=== PATIENT | female | born 1955 | race Caucasian/White ===

== ENCOUNTER 2017-12-19 11:26 | Outpatient (CLI) | payer MEDICARE | END 2017-12-19 11:27 | disposition home or self-care (01) | LOC: BICMAMMO 11:26 | PROVIDERS: ATTEND Family Medicine | DX: Z12.31 Encounter for screening mammogram for malignant neoplasm of breast (principal); N63.20 Unspecified lump in the left breast, unspecified quadrant | CPT/HCPCS: 77063; 77067 ==

== ENCOUNTER 2017-12-24 12:57 | Outpatient (CLI) | payer MEDICARE | END 2017-12-24 12:58 | disposition home or self-care (01) | LOC: BICMAMMO 12:57 | PROVIDERS: ATTEND Family Medicine | DX: N63.20 Unspecified lump in the left breast, unspecified quadrant (principal); Z80.3 Family history of malignant neoplasm of breast | CPT/HCPCS: 76642; 77065; G0279 ==

== ENCOUNTER 2018-08-06 10:21 | Outpatient (CLI) | payer MEDICARE | END 2018-08-06 10:22 | disposition home or self-care (01) | LOC: BICMAMMO 10:21 | PROVIDERS: ATTEND Family Medicine | DX: R92.8 Other abnormal and inconclusive findings on diagnostic imaging of breast (principal); Z80.3 Family history of malignant neoplasm of breast | CPT/HCPCS: 77065; G0279 ==

== ENCOUNTER 2018-10-22 09:06 | Outpatient (CLI) | payer MEDICARE ==
--- NOTE | 2018-10-22 10:33 | RAD ---
LUMBAR SPINE NEUTRAL FLEXION AND EXTENSION LATEARL IMAGIN10/22/2018 HISTORY: Low back pain, extending into the left hip. TECHNIQUE: The performing technologist reports the patient was unable to stand during this examination. FINDINGS: The neutral lateral imaging demonstrates pedicle screws with vertically oriented interlocking rods ar e L4, L5, and S1. Intervertebral disk devices are present at L4-L5 and at L5-S1. On the neutral lateral exam, there is minimal anterolisthesis of L4 on L5, measuring approximately 4 mm. There is disk space narrowing with degenerative endplate change and anterior osteophyte formatio n at the lumbosacral junction. There is atherosclerotic calcification of the abdominal aorta. On ex tension imaging, no significant anterolisthesis or retrolisthesis is noted. Flexion imaging is quite limited, on the basis of technique. Minimal anterolisthesis of L4 on L5 is suspected, probably unch anged when compared to neutral imaging. The patient appears status post bilateral L4 and L5 laminectomy. IMPRESSION: Postoperative and degenerative changes of the lumbar spine, as detailed above. POS: MELONIE
--- NOTE | 2018-10-22 12:26 | RAD ---
LEFT HIP: Date: 10/22/18 INDICATION: Low back pain and left hip pain. FINDINGS: There is mild to moderate degenerative arthrosis of the left hip. No acute fracature or subluxation i s evident. IMPRESSION: No acute osseous abnormality. POS: MELONIE
== END 2018-10-22 09:07 | disposition home or self-care (01) ==
LOC: TBSIIMAG 09:06
PROVIDERS: ATTEND Neurological Surgery
DX: M48.061 Spinal stenosis, lumbar region without neurogenic claudication (principal); M47.816 Spondylosis without myelopathy or radiculopathy, lumbar region; Z98.890 Other specified postprocedural states
CPT/HCPCS: 72100

== ENCOUNTER 2018-11-17 10:44 | Outpatient (CLI) | payer MEDICARE ==
[2018-11-17 12:22] LABS: Hemoglobin 11.1 g/dL (12.0-16.0); Mean Corpuscular Hemoglobin 29.5 pg (27.0-31.0); Mean Corpuscular Volume 89.4 fL (78.0-98.0); Mean Platelet Volume 8.5 fL (7.4-10.4); Platelet Count 229 thou/uL (130-400); RBC Distribution Width 13.5 % (11.5-14.5); Red Blood Cell (RBC) Count 3.77 mill/uL (4.20-5.40); White Blood Cell (WBC) Count 5.8 thou/uL (4.8-10.8)
[2018-11-17 12:29] LABS: PTT 33.2 SEC (22.9-36.1); Prothrombin Time 13.1 SEC (12.0-14.7)
[2018-11-17 12:42] LABS: Anion Gap 14 mmol/L (10-20); BUN (Urea Nitrogen) 31 mg/dL (9.8-20.1); Calc. Creatinine Clearance 0 mL/min (70-130); Calcium 9.9 mg/dL (7.8-10.44); Carbon Dioxide 27 mmol/L (23-31); Chloride 101 mmol/L (98-107); Estimated GFR-MDRD 36; Glucose 164 mg/dL (80-115); Potassium 4.7 mmol/L (3.5-5.1); Sodium 137 mmol/L (136-145)
== END 2018-11-17 10:45 | disposition home or self-care (01) ==
LOC: LABBT 10:44
PROVIDERS: ATTEND Neurological Surgery
DX: Z01.818 Encounter for other preprocedural examination (principal); M48.062 Spinal stenosis, lumbar region with neurogenic claudication
CPT/HCPCS: 80048; 85027; 85610; 85730; 93005; 93010

== ENCOUNTER 2018-11-23 05:46 | Day surgery (SDC) | payer MEDICARE ==
[2018-11-17 10:59] VITALS: BMI 39.8
--- NOTE | 2018-11-20 21:13 | HP ---
HISTORY OF PRESENT ILLNESS: This is a 63-year-old female, who reports to our office for evaluation of back and leg pain. The patient states that she has been having low back pain for many years. She is having symptoms of neurogenic claudication that prevents her from standing or walking for more than 5 minutes. Positive shopping cart sign. The patient had surgery by Dr. Young in 2016, fusion L4-S1, this surgery was not very helpful to her symptoms. The patient states that she has been having similar symptoms prior to surgery, however, now she is much worse. She denies injections recently and prior to her previous surgery, she had no help with them. The patient denies any recent physical therapy and states that the standing or walking is painful for any length of time. Sitting or lying in bed is less painful. REVIEW OF SYSTEMS: A 10-point review of systems has been completed and is negative other than stated in the above HPI. PAST MEDICAL HISTORY: HBP, reflux, high cholesterol, depression, anxiety, arthritis, allergies, gout, bladder problems, COPD. SURGICAL HISTORY: Knee replacement in 2017, shoulder surgery in 2016, lumbar surgery by Dr. Young in 2016. FAMILY HISTORY: Father , unknown. Mother , diagnosed with diabetes, hypertension. Children are alive. SOCIAL HISTORY: The patient is a former smoker. Uses E-cigarettes now. No alcohol or other illicit drugs. MEDICATIONS: Atorvastatin, zolpidem, mirtazapine, aspirin, allopurinol, amlodipine, fluoxetine, oxybutynin, furosemide, lisinopril/hydrochlorothiazide, and pantoprazole. PHYSICAL EXAMINATION: CONSTITUTIONAL: Well-appearing, well-nourished, alert. MENTAL STATUS: Oriented to time, place, and person. Normal attention span and concentration. Speech: Spontaneous and fluent. Comprehension intact. Content appropriate. Normal fund of knowledge. CRANIAL NERVES: Pupils equal, round, and reactive to light. Extraocular movements intact. Hearing is intact. MOTOR: Muscle strength normal in lower extremities. Muscle tone and bulk normal. Lower extremities, 5/5 bilateral strength in IP, KE, KF, DF, PF, EHL. No radiculopathy. Negative single leg raise bilaterally. Rotation of bilateral hips normal. Tender to palpate lumbar spine. Deep tendon reflexes diminished bilaterally. SENSORY: Light touch intact. GAIT and STATION: Sit to stand slow, forward flexed gait. RESPIRATIONS: Normal work of breathing on room air. IMAGING: Lumbar MRI shows severe stenosis L3-L4, previous fusion L4-L5 and L5-S1. Flexion-extension, no instability. L4-S1 instrumentation fusion. ASSESSMENT AND PLAN: Spinal stenosis, lumbar region with neurogenic claudication. Dr. Sandoval has offered surgery. He will do a redo laminectomy L2, L3 and L4 above the prior fusions. We have obtained informed consent. We have discussed the indications, risks, benefits, alternatives, expected results from surgery. The risks discussed included, but were not limited to, bleeding, infection, CSF leak, nerve damage, weakness, incontinence, cauda equina injury, arachnoiditis, paralysis, ventilator dependence, wheelchair dependence, loss of vision, cardiopulmonary complications of anesthesia or . Long-term complications discussed included, but were not limited to spinal instability and the need for further surgery. The patient states she understands the risks and willing to proceed. Job ID: [id number]
[2018-11-23] MEDS ORDERED: Bupivacaine HCl 0.5%/Epinephrine 1:200,000/PF 30 ml Vial ONE (06:16)
[2018-11-23] MEDS ORDERED: Sodium Chloride 0.9% 10 ML ONE ×2 (06:17→11:36)
[2018-11-23] MEDS ORDERED: Thrombin 5000 UNITS/5 ML VIAL ONE (06:17)
[2018-11-23] MEDS ORDERED: Promethazine HCl 25 MG/ML VIAL ONE ×3 (06:40→11:36)
[2018-11-23] MEDS ORDERED: Midazolam HCl 2 mg/2 ml Vial ONE (06:42)
[2018-11-23] MEDS ORDERED: Fentanyl 100 MCG/2 ML VIAL ONE ×4 (06:53→10:45)
[2018-11-23] MEDS ORDERED: Meperidine HCl/PF 25 MG/ML VIAL SLOW IVP PRN (09:23)
[2018-11-23] MEDS ORDERED: Ondansetron HCl/PF 4 MG/2 ML Vial IVP PRN (09:23)
[2018-11-23] MEDS ORDERED: Promethazine HCl 25 MG/ML VIAL SLOW IVP PRN (09:23)
[2018-11-23] MEDS ORDERED: HYDROmorphone 2 MG/ML VIAL SLOW IVP PRN (09:23)
[2018-11-23] MEDS ORDERED: PACU-Morphine 4MG/ML VIAL SLOW IVP PRN (09:23)
[2018-11-23] MEDS ORDERED: Morphine Sulfate 2 MG/ML SYRINGE SLOW IVP PRN (09:23)
[2018-11-23] MEDS ORDERED: Promethazine HCl 25 MG/ML VIAL IM PRN (09:23)
--- NOTE | 2018-11-23 10:27 | OP ---
DATE OF PROCEDURE: 11/23/2018 LEVEL GLASS VIAL FILLER: Brianna Almaguer PA-C. PREOPERATIVE INDICATION: Treat pain and prevent neurological deterioration. PREOPERATIVE DIAGNOSIS: Two level lumbar stenosis above previously fused segment (prior surgery elsewhere). POSTOPERATIVE DIAGNOSIS: Two level lumbar stenosis above previously fused segment (prior surgery elsewhere). OPERATIVE PROCEDURES: Decompressive laminectomy, medial facetectomy, foraminotomy, L2-L3, L3-L4, operating microscope, scar tissue dissection. PREOPERATIVE MEDICATION: Ancef 2 g IV. DRAIN NUMBER: Zero. DRAIN TYPE: None. DESCRIPTION OF PROCEDURE: The patient was brought to the operating room. General endotracheal anesthesia was induced. The patient was positioned prone on the operating table with the chest and hips supported by gel-filled chest rolls. A lateral fluoro radiograph was used to plan our incision, which would give us access from L2 to L4 in her lumbar spine. The lumbar skin was sterilely prepped and draped. We opened our incision with a 10 blade knife and controlled bleeding with bipolar cautery. We used monopolar cautery to dissect through subcutaneous tissues to the thoracodorsal fascia. We incised the fascia in the midline and reflected the paraspinal muscles off the spinous process and lamina of L2, L3, and L4. A lateral fluoro radiograph confirmed the levels upon which we were operating. We then used an Adson rongeur to remove the spinous process of L2-L3 and the superior portion of L4, using the Kerrison rongeur, we fashioned a laminectomy. We widened our laminectomy defect and brought the operative microscope into the field. Under microscopic magnification and using microsurgical techniques, I performed more the medial facetectomy and foraminotomy at L2-L3 and L3-L4. We undermined the lateral recesses by removing overgrown facet material and yellow ligament. We identified the traversing and exiting L3 and L4 nerve roots and made sure a ball probe could pass through the lateral recess and out the foramen without impingement. Similar process was used to perform small foraminotomy around the L2 nerve roots. We irrigated copiously with bacitracin irrigation and waxed the bone edges. We ensured adequate decompression one last time and controlled the epidural bleeding with gentle bipolar cautery. We infused local anesthetic in the paraspinal muscles. We removed the operating microscope. We closed the wound in anatomical layers after treating with vancomycin powder. A sterile dressing was applied. This was a clean case, no contamination. Job ID: [id number]
[2018-11-23] MEDS ORDERED: ePHEDrine 50 MG/ML VIAL ONE (11:33)
[2018-11-23] MEDS ORDERED: Rocuronium Bromide 10 MG/ML (10ML VIAL) ONE (11:33)
[2018-11-23] MEDS ORDERED: PROPOFOL 200 MG/20 ML VIAL ONE (11:33)
[2018-11-23] MEDS ORDERED: PHENYLEPHRINE-NS 100 MCG/ML 10 ML SYRINGE ONE (11:33)
[2018-11-23] MEDS ORDERED: Lidocaine 1% PF 5 ML VIAL ONE (11:33)
[2018-11-23] MEDS ORDERED: Glycopyrrolate 0.2 MG/ML 5 ML SYRINGE ONE (11:33)
[2018-11-23] MEDS ORDERED: PROVENTIL INHALER 6.7 G (200 INHALATIONS) ONE (11:33)
[2018-11-23] MEDS ORDERED: Esmolol 100 MG/10 ML VIAL ONE (11:33)
[2018-11-23] MEDS ORDERED: Metoclopramide HCl 10 MG/2 ML VIAL ONE (11:33)
[2018-11-23] MEDS ORDERED: Ondansetron PF 4 MG/2 ML Vial ONE (11:33)
== END 2018-11-23 13:05 | disposition home or self-care (01) ==
LOC: SDC 05:46
PROVIDERS: ATTEND Neurological Surgery
PROC: 01NB0ZZ Release Lumbar Nerve, Open Approach (ICD-10-PCS; principal; 2018-11-23)
DX: M48.062 Spinal stenosis, lumbar region with neurogenic claudication (principal); K21.9 Gastro-esophageal reflux disease without esophagitis; E78.00 Pure hypercholesterolemia, unspecified; F32.9 Major depressive disorder, single episode, unspecified; F41.9 Anxiety disorder, unspecified; M19.90 Unspecified osteoarthritis, unspecified site; M10.9 Gout, unspecified; J44.9 Chronic obstructive pulmonary disease, unspecified; I10 Essential (primary) hypertension; F17.290 Nicotine dependence, other tobacco product, uncomplicated; Z88.0 Allergy status to penicillin; Z98.1 Arthrodesis status; Z79.899 Other long term (current) drug therapy
CPT/HCPCS: 76000; J0131; J0670; J0690; J2001; J2250; J2405; J2550; J2704; J2765; J3010; J3370; J3490

== ENCOUNTER 2019-01-04 10:38 | Outpatient (CLI) | payer MEDICARE ==
--- NOTE | 2019-01-04 13:42 | MMO ---
Bilateral MAMMO Bilat Screen [facility]. CLINICAL HISTORY: Patient is 63 years old and is seen for screening. The patient has no personal history of cancer. The patient has a history of right Excisional Biopsy in 07/05 - benign findings and left Excisional Biopsy in 08/07 - benign. VIEWS: The views performed were: bilateral craniocaudal with tomosynthesis and bilateral mediolateral oblique with tomosynthesis. FILMS COMPARED: The present examination has been compared to prior imaging studies performed at [facility] on 05/29/2016, 12/19/2017, 12/24/2017 and 08/06/2018. MAMMOGRAM FINDINGS: There are scattered fibroglandular densities. There are stable benign appearing calcifications seen in both breasts. There are no suspicious masses, suspicious calcifications, or new areas of architectural distortion. IMPRESSION: THERE IS NO MAMMOGRAPHIC EVIDENCE OF MALIGNANCY. A ROUTINE FOLLOW-UP MAMMOGRAM IN 1 YEAR IS RECOMMENDED. THE RESULTS OF THIS EXAM WERE SENT TO THE PATIENT. ACR BI-RADS Category 2 - Benign finding MAMMOGRAPHY NOTE: 1. A negative mammogram report should not delay a biopsy if a dominant of clinically suspicious mass is present. 2. Approximately 10% to 15% of breast cancers are not detected by mammography. 3. Adenosis and dense breasts may obscure an underlying neoplasm.
== END 2019-01-04 10:39 | disposition home or self-care (01) ==
LOC: BICMAMMO 10:38
PROVIDERS: ATTEND Family Medicine
DX: Z12.31 Encounter for screening mammogram for malignant neoplasm of breast (principal)
CPT/HCPCS: 77063; 77067

== ENCOUNTER 2019-02-09 09:01 | Observation (INO) | payer MEDICARE ==
[2019-02-09] MEDS ORDERED: Ondansetron PF 4 MG/2 ML Vial ONE (09:43)
[2019-02-09] MEDS ORDERED: Morphine 4 MG/ML VIAL ONE (09:43)
[2019-02-09 09:44] LABS: #Lymphocytes 1.3 thou/uL (1.20-3.40); #Monocytes 0.9 thou/uL (0.11-0.59); #Neutrophils 11.6 thou/uL (1.40-6.50); %Basophils 0.3 % (0.0-1.0); %Eosinophils 0.1 % (0.0-10.0); %Lymphocytes 9.1 % (21.0-51.0); %Monocytes 6.4 % (0.0-10.0); %Neutrophils 84.1 % (42.0-75.0); Mean Corpuscular HGB CONC 32.1 g/dL (32.0-36.0); Mean Corpuscular Volume 87.3 fL (78.0-98.0); Mean Platelet Volume 8.1 fL (7.4-10.4); Platelet Count 242 thou/uL (130-400); RBC Distribution Width 14.2 % (11.5-14.5); Red Blood Cell (RBC) Count 3.92 mill/uL (4.20-5.40); White Blood Cell (WBC) Count 13.8 thou/uL (4.8-10.8)
[2019-02-09 10:05] LABS: ALT (SGPT) 10 U/L (8-55); AST (SGOT) 14 U/L (5-34); Albumin 3.9 g/dL (3.4-4.8); Alkaline Phosphatase 102 U/L (40-150); Anion Gap 15 mmol/L (10-20); BUN (Urea Nitrogen) 46 mg/dL (9.8-20.1); Bilirubin, Total 0.5 mg/dL (0.2-1.2); Calc. Creatinine Clearance 0 mL/min (70-130); Calcium 9.4 mg/dL (7.8-10.44); Carbon Dioxide 23 mmol/L (23-31); Chloride 99 mmol/L (98-107); Estimated GFR-MDRD 24; Glucose 178 mg/dL (80-115); Potassium 4.3 mmol/L (3.5-5.1); Protein, Total 6.9 g/dL (6.0-8.3); Sodium 133 mmol/L (136-145)
[2019-02-09] MEDS ORDERED: Iopamidol 370 76% 50 ML VIAL FS ONE (10:35)
[2019-02-09 11:43] LABS: Bilirubin Negative (Negative); Blood, Urine Negative (Negative); Glucose, Urine (Dipstick) Negative (Negative); Leukocyte Negative (Negative); Nitrite Negative (Negative); Protein, Urine (Dipstick) Negative (Neg-Trace); Urobilinogen 0.2 mg/dL (Less than 2)
[2019-02-09 11:44] LABS: Clarity Clear (Clear)
--- NOTE | 2019-02-09 12:38 | CT ---
CT OF THE ABDOMEN AND PELVIS WITHOUT IV CONTRAST INDICATION: Constipation and history of left lower quadrant abdominal pain and blood in stool. COMPARISON: January 05, 2010 CT evaluation of the abdomen and pelvis from prior radiology associates. FINDINGS: The lack of IV contrast limits evaluation of the solid organs of the abdomen and pelvis. ABDOMEN: Lung bases: There is mild bibasilar atelectasis. There is a moderate-sized hiatal hernia. There is po stsurgical change of a prior gastroplasty. Liver: No focal lesion. Gallbladder: Surgically absent. Pancreas: Normal. Adrenal glands: Normal. Spleen: Normal. Kidneys: Normal. Retroperitoneum of the upper abdomen: There are moderate calcifications involving the abdominal aorta . Additional findings: None. Pelvis: Small and large bowel: There are scattered colonic diverticula. There is wall thickening with planar pericolonic inflammatory stranding involving the proximal sigmoid colon, descending colon, splenic flexure and distal transverse colon suspicious for colitis. Bladder: Normal. Rectal and perirectal soft tissues:Normal. Reproductive structures: Not visualized, presumed to be surgically absent. Free fluid in pelvis: No free fluid is evident. Lymphadenopathy pelvis: No lymphadenopathy is evident. Osseous structures: There is postsurgical change of a posterior lateral interbody fusion from L4 thro ugh S1. There is scattered degenerative and osteoarthritic changes. IMPRESSION: 1. Findings suspicious for colonic diverticulitis of the distal transverse colon, descending colon, s plenic flexure and proximal sigmoid colon. No drainable fluid collection is evident. 2. Moderate hiatal hernia 3. Other chronic findings as above
[2019-02-09] MEDS ORDERED: metroNIDAZOLE 250 MG TAB ONE (14:14)
[2019-02-09] MEDS ORDERED: Ciprofloxacin 500 MG TAB ONE (14:14)
[2019-02-09 15:40] VITALS: BMI 41.1
[2019-02-09] MEDS ORDERED: hydrALAZINE 20 MG/ML VIAL SLOW IVP PRN (15:54)
[2019-02-09] MEDS ORDERED: Temazepam 15 MG CAP PO PRN (15:54)
[2019-02-09] MEDS ORDERED: Acetaminophen 500 MG TAB PO PRN (15:54)
[2019-02-09] MEDS: Sodium Chloride 0.9% 1,000 ML IV SCH (16:25)
[2019-02-09] MEDS: Nicotine 14 MG PATCH TD SCH (16:26)
[2019-02-09] MEDS: Morphine 4 MG/ML VIAL SLOW IVP PRN (17:17)
[2019-02-09] MEDS: Ondansetron PF 4 MG/2 ML Vial IVP PRN (17:17)
[2019-02-09] MEDS: metroNIDAZOLE 500 MG in Premix Bag 1 BAG IVPB SCH (22:13)
--- NOTE | 2019-02-09 22:20 | HP ---
CHIEF COMPLAINT: Nausea, vomiting, bloody diarrhea, abdominal pain. HISTORY OF PRESENT ILLNESS: The patient is a 63-year-old female, who was fine until last night when she started having some nausea, vomiting associated with some abdominal pain in the left lower quadrant of the abdomen. She had some loose bowel movements, then they became bloody and now is pure blood according to her. She denied any fever or chills. She had similar episodes in the past x1. Also, she had colitis in the past, seen by Dr. David at the GI specialist office for this pain in her left lower quadrant, but this was quite mild as compared to what she has today and what she had last night, so she was advised to watch this closely and let the GI know about the problem if it gets worse. PAST MEDICAL HISTORY: Positive for; 1. Hyperlipidemia. 2. Hypertension. 3. Diabetes mellitus. 4. Colitis. 5. Diverticulitis. PAST SURGICAL HISTORY: 1. Hysterectomy. 2. Orthopedic surgery at back, shoulders, and knees. 3. Vein stripping. PSYCHIATRIC HISTORY: Positive for depression. SOCIAL HISTORY: She smokes one pack of cigarettes per week. She denies any alcohol intake. She denies any drug use. ALLERGIES: NONE. CURRENT MEDICATIONS: None. FAMILY HISTORY: Father was an alcoholic and he passed when he was 60. Mother was diabetic and she passed when she was 63. REVIEW OF SYSTEMS: All 14 systems are reviewed and negative except for those symptoms which are mentioned in the HPI. PHYSICAL EXAMINATION: VITAL SIGNS: Blood pressure is 147/70, pulse is 93, temperature is 97.4, respirations 20, and O2 saturation is 93% on room air. GENERAL: She is not in any distress during my visit. HEENT: Her head is atraumatic and normocephalic. Eyes, PERRLA. Sclerae are nonicteric. Oral mucosa is dry. NECK: Supple. No lymphadenopathy. Thyroid is not palpable. LUNGS: Clear. HEART: S1, S2 normal. No S3. No S4. There is a systolic murmur mostly audible at the left sternal border, 2/6. ABDOMEN: Soft. Tender in the left lower quadrant. No guarding, no masses. EXTREMITIES: No clubbing, cyanosis, or edema. NEUROLOGICAL: She is alert and oriented x4. There are no any motor deficits. SKIN: No rash or erythema. LABORATORY DATA: Labs showed white count of 13.8, hemoglobin 11.0, hematocrit 34.2, platelet count is 242,000. Sodium of 133, potassium 4.3, chloride 99, CO2 of 23, BUN 46, creatinine 2.11, glucose 178. The rest of chemistry within normal limits. Urinalysis within normal limits. CT of the abdomen and pelvis showed findings were suspicious for colonic diverticulitis of the distal transverse colon, descending colon, splenic flexure, and proximal sigmoid colon. There was no drainable fluid collection evident and also there was a moderate hiatal hernia. IMPRESSION: 1. Diverticulitis with a bleeding. 2. Renal insufficiency. Her baseline creatinine is 1.3 and now she is elevated at 2, most likely is prerenal. We will try her on IV fluids. 3. Diabetes mellitus. 4. Hyperlipidemia. 5. Hypertension. 6. History of previous diverticulitis and colitis. PLAN: Admission to the hospital observation unit. Condition is fair. Activity, bedrest and bathroom privileges. IV normal saline 100 mL/hour. Continue antiemetics. Change Cipro and Flagyl to IV morphine for the pain, 2 mg every 2 hours p.r.n. as needed. GI consult with Dr. Cole. He was notified about the patient's location. We will obtain CBC and BMP tomorrow morning and check her Accu-Cheks before meals and at bedtime and cover her with sliding scale, mild, with Humalog and we will keep her on clear liquids. Job ID: [id number]
[2019-02-09] MEDS ORDERED: busPIRone HCl 5 MG TAB PO SCH (23:00)
[2019-02-09] MEDS ORDERED: Atorvastatin Calcium 10 MG TAB PO SCH (23:00)
[2019-02-09] MEDS ORDERED: Zolpidem Tartrate 5 MG TAB PO SCH (23:15)
[2019-02-09] MEDS ORDERED: Mirtazapine 15 MG TAB PO SCH (23:15)
--- NOTE | 2019-02-10 01:44 | CON ---
DATE OF CONSULTATION: 02/09/2019 REASON FOR CONSULTATION: Diverticulitis, hematochezia. CONSULTING PHYSICIAN: José Miguel Petersen MD HISTORY OF PRESENT ILLNESS: The patient is a 63-year-old female with past medical history of diabetes, hyperlipidemia, hypertension, GERD, osteoarthritis, depression, obstructive sleep apnea, and diverticulitis, presenting with complaints of left lower quadrant abdominal pain and hematochezia. The patient states that she was in her usual state of health until approximately 2 to 3 weeks ago when she had the acute onset of increased left lower quadrant abdominal pain characterized as a "jabbing pain," was nonradiating, would last for 2-3 hours and occur primarily with meals and reach the severity of 7/10. The pain was worse primarily with eating both solid and liquid food stuffs, but no other clear exacerbating factors, better only with time and allowing the pain to subside on its own. Prior to this time, she was having increased constipation, having one semi-solid bowel movement every 2 days, but was taking both ClearLax and a stool softener daily in order to facilitate having these many bowel movements. However, over the last 24 hours, she began having increased diarrhea characterized as more of a liquid type stool and had approximately 3 to 4 episodes of these liquid stools before she began to see the appearance of hematochezia characterized as bright red blood per rectum that was present both on the toilet paper and in the toilet, which she described as a larger amount. She currently endorses associated nausea, vomiting in addition to the above symptoms; however, she denies any fevers, shaking chills, hematemesis, melena, dysphagia, odynophagia, or weight loss. Of note, the patient was seen by Dr. David in the outpatient GI Clinic yesterday and was instructed upon watchful waiting to see how at present her pain evolves. However, shortly after the clinic visit yesterday, she had worsening of her abdominal pain in addition to the appearance of the diarrhea and hematochezia, prompting her admission to [facility] ER. REVIEW OF SYSTEMS: A 10-category review of systems was obtained with all responses negative except for the pertinent positives as listed in HPI. PAST MEDICAL HISTORY: As per HPI. PAST SURGICAL HISTORY: Hysterectomy, back surgery, shoulder surgery, and knee surgery. SOCIAL HISTORY: Currently smokes daily with the use of both tobacco and vapor pen. Denies any alcohol or illicit drug use. FAMILY HISTORY: Denies any GI malignancies. OUTPATIENT MEDICATIONS: Reviewed. ALLERGIES: PENICILLIN. PHYSICAL EXAMINATION: VITAL SIGNS: Temperature 97.4, pulse 93, blood pressure 147/70, respiratory rate 20, saturating 93% on room air. GENERAL: The patient was lying in bed, in no acute distress. Alert and oriented x4. HEENT: Normocephalic, atraumatic. NECK: Supple with no JVD or scleral icterus noted. CARDIOVASCULAR: Regular rate and rhythm with no discernible murmurs, gallops, or rubs. RESPIRATORY: Clear to auscultation bilaterally with no discernible wheezes or rales. ABDOMINAL: Normoactive bowel sounds. Soft, nondistended. Tenderness to palpation in the periumbilical, left flank and left lower quadrant. EXTREMITIES: No cyanosis, clubbing, or edema. LABORATORY DATA: CBC with a white blood cell count of 13.8, hemoglobin 11, hematocrit 34.2, platelets 242. Chemistry with a sodium of 133, potassium 4.3, chloride 99, CO2 of 23, BUN 46, creatinine 2.11, glucose 178, AST 14, ALT 10, alkaline phosphatase 102, total bilirubin 0.5, albumin 3.9. IMAGING DATA: CT of the abdomen and pelvis was obtained on February 09, 2019, which showed a moderate-sized hiatal hernia with postsurgical change consistent with prior gastroplasty. Surgical change consistent with cholecystectomy was also present. There was also presence of scattered colonic diverticula with wall thickening and pericolonic inflammatory stranding involving the proximal sigmoid colon, descending colon, splenic flexure, and distal transverse colon suspicious for colitis. ASSESSMENT AND PLAN: The patient is a 63-year-old female with past medical history of diabetes, hyperlipidemia, hypertension, GERD, osteoarthritis, depression, obstructive sleep apnea, and prior bouts of diverticulitis, presenting with left lower quadrant abdominal pain and imaging consistent with diverticulitis. Diverticulitis. The patient is presenting with a 2-3 week history of left lower quadrant abdominal pain lasting for 2-3 hours at a time and occurring around 2-3 times per day. This was also associated with increased constipation prior to the onset of her abdominal pain and a history of diverticulitis in the past. She was seen in the outpatient GI Clinic by Dr. David yesterday with recommendations for watchful waiting, but experienced increased worsening of her abdominal pain in addition to increased diarrhea and hematochezia, prompting her admission to [facility] ER. On imaging, she does have increased wall thickening and inflammatory stranding involving the left colon, which could be consistent with diverticulitis. However, differential could include ulcer colitis and/or Crohn disease as a possible etiology for her abdominal pain and imaging findings, however, given her prior bouts of diverticulitis and similar symptom presentation in the past, this is much more likely. RECOMMENDATIONS: 1. Would start the patient on a clear liquid diet for now with plans to advance her to a low residue diet during her period of acute inflammation. 2. Agree with placing the patient on ciprofloxacin and metronidazole for treatment of diverticulitis. 3. We will continue to monitor patient clinically for signs of improvement with this regimen. 4. No endoscopic evaluation is planned at this time given the increased risk of perforation with active diverticulitis. However, if the patient does not respond to the current therapy, we could consider colonoscopy at that time for evaluation of possible IBD. 5. Pain control per primary team. We will continue to follow. Please call with any questions. Job ID: [id number]
[2019-02-10] MEDS: Morphine 4 MG/ML VIAL SLOW IVP PRN ×3 (02:56→19:59)
[2019-02-10] MEDS: Sodium Chloride 0.9% 1,000 ML IV SCH ×2 (03:00→17:11)
[2019-02-10 05:04] LABS: #Lymphocytes 1.2 thou/uL (1.20-3.40); #Monocytes 0.8 thou/uL (0.11-0.59); #Neutrophils 10.3 thou/uL (1.40-6.50); %Eosinophils 0.1 % (0.0-10.0); %Lymphocytes 9.8 % (21.0-51.0); %Monocytes 6.7 % (0.0-10.0); %Neutrophils 83.4 % (42.0-75.0); Hemoglobin 10.2 g/dL (12.0-16.0); Mean Corpuscular HGB CONC 31.7 g/dL (32.0-36.0); Mean Corpuscular Hemoglobin 28.4 pg (27.0-31.0); Mean Corpuscular Volume 89.7 fL (78.0-98.0); Platelet Count 208 thou/uL (130-400); RBC Distribution Width 14.1 % (11.5-14.5); White Blood Cell (WBC) Count 12.3 thou/uL (4.8-10.8)
[2019-02-10 05:22] LABS: Anion Gap 11 mmol/L (10-20); BUN (Urea Nitrogen) 24 mg/dL (9.8-20.1); Calc. Creatinine Clearance 89 mL/min (70-130); Calcium 9.3 mg/dL (7.8-10.44); Carbon Dioxide 26 mmol/L (23-31); Chloride 104 mmol/L (98-107); Estimated GFR-MDRD 46; Glucose 173 mg/dL (80-115); Potassium 4.6 mmol/L (3.5-5.1); Sodium 136 mmol/L (136-145)
[2019-02-10 05:25] LABS: Troponin I 0.029 ng/mL (< 0.028)
[2019-02-10] MEDS: metroNIDAZOLE 500 MG in Premix Bag 1 BAG IVPB SCH ×3 (06:17→21:35)
[2019-02-10 08:07] LABS: Troponin I Less than 0.010 ng/mL (< 0.028)
[2019-02-10] MEDS: Ondansetron PF 4 MG/2 ML Vial IVP PRN (08:54)
[2019-02-10] MEDS: busPIRone HCl 5 MG TAB PO SCH ×2 (08:54→21:08)
[2019-02-10] MEDS: FLUoxetine HCl 20 MG CAP PO SCH (08:55)
[2019-02-10] MEDS: Oxybutynin 5 MG TAB PO SCH (08:55)
[2019-02-10] MEDS: Amlodipine 5 MG TAB PO SCH (08:55)
[2019-02-10] MEDS: Allopurinol 300 MG TAB PO SCH (08:55)
[2019-02-10 11:06] LABS: Troponin I Less than 0.010 ng/mL (< 0.028)
--- NOTE | 2019-02-10 11:59 | PRG ---
DATE OF SERVICE: 02/10/2019 SUBJECTIVE: The patient is seen and examined at the bedside. She had restless night. She is still having some hematochezia and abdominal pain. No nausea. No vomiting though. OBJECTIVE: VITAL SIGNS: Blood pressure is 141/63, pulse is 88, temperature is 98.1, respirations 16, O2 saturation is 93% on room air. HEENT: Her head is atraumatic and normocephalic. Sclerae are nonicteric. Oral mucosa is still somewhat dry. NECK: Supple. No lymphadenopathy. LUNGS: Clear. HEART: S1 and S2 normal. ABDOMEN: Obese, tender in the left lower quadrant. No guarding. No masses. EXTREMITIES: No clubbing, cyanosis, or edema. NEUROLOGIC: She is alert and oriented x4. There is no any motor deficits. Cranial nerves are grossly intact. LABORATORY DATA: Showed white count of 12.3, hemoglobin 10.2, hematocrit 32.2, platelet count 208. Normal electrolytes. BUN 24, creatinine 1.17, glucose 173, calcium 9.3. Troponin I less than 0.010. Stool occult blood test positive. IMPRESSION: 1. Acute diverticulitis with hematochezia. 2. Renal insufficiency improved with IV fluids. She is back to her baseline with creatinine around 1.1. 3. Diabetes mellitus. 4. Hyperlipidemia. 5. Hypertension. 6. History of previous diverticulitis and colitis. PLAN: Continue clear liquids for now. We will decrease her IV fluids to 75 mL/h. Continue Cipro and Flagyl IV and morphine p.r.n. for the pain. The patient was seen by Dr. Cole for GI evaluation. He agreed with current regimen and no interventions at this point is recommended. Job ID: [id number]
--- NOTE | 2019-02-10 12:54 | PRG ---
DATE OF SERVICE: 02/10/2019 REASON FOR CONSULTATION: Diverticulitis, hematochezia. SUBJECTIVE: The patient states that she did have a bit of insomnia overnight, but otherwise was doing well. This morning, she states that her left lower quadrant abdominal pain has improved some as well as having decreased frequency of hematochezia over the last 24 hours. Otherwise, she denies any fevers, shaking chills, melena, hematemesis, dysphagia, odynophagia, or weight loss. OBJECTIVE: VITAL SIGNS: Temperature 98.1, pulse 88, blood pressure 141/63, respiratory rate 16, and saturating 93% on room air. GENERAL: The patient is lying in bed, in no acute distress. Alert and oriented x4. CARDIOVASCULAR: Regular rate and rhythm. RESPIRATORY: Clear to auscultation bilaterally. ABDOMEN: Normoactive bowel sounds. Soft, nondistended. Tenderness to palpation in the left upper quadrant and left lower quadrant. EXTREMITIES: No cyanosis, clubbing, or edema. LABORATORY DATA: CBC with a white blood cell count of 12.3, hemoglobin 10.2, hematocrit 32.2, platelets 208. Chemistry with sodium of 136, potassium 4.6, chloride 104, CO2 of 26, BUN 24, creatinine 1.17, glucose 173. IMAGING DATA: No current GI imaging is available for review. ASSESSMENT AND PLAN: The patient is a 63-year-old female with past medical history of diabetes, hyperlipidemia, hypertension, gastroesophageal reflux disease, osteoarthritis, depression, obstructive sleep apnea, and prior bouts of diverticulitis, presenting with left lower quadrant abdominal pain and imaging consistent with diverticulitis. Diverticulitis. The patient initially presented with increased left lower quadrant abdominal pain, present for the last 2 to 3 weeks with imaging consistent with the diagnosis of diverticulitis. Currently tolerating IV antibiotics well with improvement in both abdominal pain and frequency of bloody bowel movements. RECOMMENDATIONS: 1. We would advance the patient to full liquid diet, given no plans for endoscopic intervention at this time. I advanced her to a low residue diet during this period of acute inflammation with plans to start a higher fiber diet within 2 to 3 weeks of discharge. 2. Agree with current antibiotic therapy with ciprofloxacin, metronidazole. 3. Pain control per primary team. 4. We will continue to monitor the patient clinically for signs of improvement. 5. We will continue to follow. Please call with any questions. Job ID: [id number]
[2019-02-10] MEDS: Nicotine 14 MG PATCH TD SCH (17:11)
[2019-02-10] MEDS ORDERED: Mirtazapine 15 MG TAB PO SCH (21:00)
[2019-02-10] MEDS ORDERED: Zolpidem Tartrate 5 MG TAB PO SCH (21:00)
[2019-02-10] MEDS ORDERED: Atorvastatin Calcium 40 MG TAB PO SCH (21:00)
[2019-02-11 02:14] LABS: Anion Gap 9 mmol/L (10-20); BUN (Urea Nitrogen) 15 mg/dL (9.8-20.1); Calc. Creatinine Clearance 103 mL/min (70-130); Calcium 9.4 mg/dL (7.8-10.44); Carbon Dioxide 25 mmol/L (23-31); Chloride 107 mmol/L (98-107); Estimated GFR-MDRD 55; Glucose 141 mg/dL (80-115); Magnesium 1.4 mg/dL (1.6-2.6); Potassium 4.2 mmol/L (3.5-5.1); Sodium 137 mmol/L (136-145)
[2019-02-11] MEDS: Sodium Chloride 0.9% 1,000 ML IV SCH ×2 (05:12→19:34)
[2019-02-11 05:45] LABS: #Lymphocytes 1.4 thou/uL (1.20-3.40); #Monocytes 0.6 thou/uL (0.11-0.59); #Neutrophils 7.4 thou/uL (1.40-6.50); %Basophils 0.3 % (0.0-1.0); %Eosinophils 0.1 % (0.0-10.0); %Lymphocytes 14.9 % (21.0-51.0); %Monocytes 6.3 % (0.0-10.0); %Neutrophils 78.4 % (42.0-75.0); Hemoglobin 9.7 g/dL (12.0-16.0); Mean Corpuscular HGB CONC 31.6 g/dL (32.0-36.0); Mean Corpuscular Hemoglobin 28.5 pg (27.0-31.0); Mean Corpuscular Volume 90.1 fL (78.0-98.0); Mean Platelet Volume 8.1 fL (7.4-10.4); Platelet Count 181 thou/uL (130-400); Red Blood Cell (RBC) Count 3.38 mill/uL (4.20-5.40); White Blood Cell (WBC) Count 9.4 thou/uL (4.8-10.8)
[2019-02-11 06:10] LABS: Anion Gap 8 mmol/L (10-20); BUN (Urea Nitrogen) 14 mg/dL (9.8-20.1); Calc. Creatinine Clearance 104 mL/min (70-130); Calcium 9.5 mg/dL (7.8-10.44); Carbon Dioxide 27 mmol/L (23-31); Chloride 107 mmol/L (98-107); Estimated GFR-MDRD 54; Glucose 150 mg/dL (80-115); Potassium 4.6 mmol/L (3.5-5.1); Sodium 137 mmol/L (136-145)
[2019-02-11] MEDS: metroNIDAZOLE 500 MG in Premix Bag 1 BAG IVPB SCH ×2 (06:16→15:35)
[2019-02-11] MEDS: busPIRone HCl 5 MG TAB PO SCH (09:01)
[2019-02-11] MEDS: Oxybutynin 5 MG TAB PO SCH (09:02)
[2019-02-11] MEDS: FLUoxetine HCl 20 MG CAP PO SCH (09:02)
[2019-02-11] MEDS: Amlodipine 5 MG TAB PO SCH (09:02)
[2019-02-11] MEDS: Allopurinol 300 MG TAB PO SCH (09:02)
--- NOTE | 2019-02-11 11:27 | EKG ---
Test Reason : STAT Blood Pressure : / mmHG Vent. Rate : 086 BPM Atrial Rate : 086 BPM P-R Int : 172 ms QRS Dur : 074 ms QT Int : 350 ms P-R-T Axes : 067 049 040 degrees QTc Int : 418 ms Normal sinus rhythm Low voltage QRS Borderline ECG Confirmed by THI DELUNA ([id number]) on 02/11/2019 11:26:39 AM Referred By: Confirmed By:THI DELUNA
[2019-02-11] MEDS: Morphine 4 MG/ML VIAL SLOW IVP PRN (12:15)
--- NOTE | 2019-02-11 14:18 | PRG ---
DATE OF SERVICE: 02/11/2019 SUBJECTIVE: The patient see some improvement. Her bleeding is stopped. Her abdominal pain is subsiding. There is no nausea or vomiting. She is on clear liquids with low residuals per GI recommendation. OBJECTIVE: VITAL SIGNS: Blood pressure is 173/74, pulse is 90, temperature is 98.1, respirations 18, O2 saturation 93% on room air. HEENT: Her head is atraumatic and normocephalic. Eyes are PERRLA. Sclerae are nonicteric. Oral mucosa is moist. NECK: Supple. LUNGS: Clear. HEART: S1 and S2 normal. ABDOMEN: Soft. Tender in the left lower quadrant. No guarding. EXTREMITIES: No clubbing, cyanosis, or edema. NEUROLOGICAL: She is alert and oriented x4. There is no any motor or sensory deficits present. Cranial nerves are intact. LABORATORY DATA: Labs showed white count of 9.4, hemoglobin 9.7, hematocrit 30.5, platelet count is 181,000. Sodium 137, potassium 4.6, chloride 107, CO2 of 27, BUN 14, creatinine 1.03, glycemia is ranging from 141 to 178, and magnesium level is 1.4. IMPRESSION: 1. Acute diverticulitis with hematochezia, improving. 2. Renal insufficiency improved with IV fluids. 3. Diabetes mellitus, type 2. 4. Hyperlipidemia. 5. Hypertension. 6. History of previous diverticulitis and colitis. 7. Normocytic anemia. 8. Hypomagnesemia. PLAN: Plan is to give her magnesium IV today. Continue her on clear liquids with p.r.n. pain management and she should be able to go home tomorrow morning. Job ID: [id number]
[2019-02-11] MEDS ORDERED: Magnesium 2 GM/NS 0.9% 100 ML 2 GM in Premix Bag 1 BAG IVPB SCH (15:00)
[2019-02-11 15:57] VITALS: TEMP 97.9
[2019-02-11] MEDS ORDERED: Magnesium 2 GM/50 ML 2 GM in Premix Bag 1 BAG IVPB SCH (16:30)
[2019-02-11] MEDS ORDERED: Acetaminophen/Codeine 30-300mg Tablet PO PRN ×2 (17:58→17:59)
[2019-02-11] MEDS ORDERED: Magnesium Oxide 400 MG TAB PO SCH (18:00)
[2019-02-11] MEDS: Nicotine 14 MG PATCH TD SCH (18:17)
[2019-02-11 18:29] VITALS: BP 164/87
--- NOTE | 2019-02-12 10:31 | DIS ---
DATE OF ADMISSION: 02/09/2019 DATE OF DISCHARGE: 02/11/2019 DIAGNOSES AT THE TIME OF DISCHARGE: 1. Acute diverticulitis with hematochezia, improved. 2. Renal insufficiency, improved. 3. Diabetes mellitus type 2. 4. Hyperlipidemia. 5. Hypertension. 6. History of previous diverticulitis and colitis. 7. Normocytic anemia. 8. Hypomagnesemia. CONSULTANTS: Dr. Casa Cole, Gastrointestinal Service. HOSPITAL COURSE: The patient is a 63-year-old female, who presented to the hospital with nausea, vomiting, bloody diarrhea, and abdominal pain. She was evaluated in the emergency room and CT of the abdomen showed findings were suspicious for colonic diverticulitis of the distal transverse colon, descending colon, splenic flexure, and proximal sigmoid colon. Her white count was 13.8, hemoglobin 11.0, hematocrit 34.2, and platelet count was 242,000. Her electrolytes were within normal limits. Creatinine was elevated at 2.11, glucose 178. Urinalysis was within normal limits. The rest of chemistry was within normal limits. The patient was started on IV Cipro and Flagyl and p.r.n. morphine IV along with IV fluids. She was kept on clear liquids. She had quite significant hematochezia, which subsided. She was seen by Dr. Casa Cole for gastrointestinal evaluation. He recommended to stay on liquid diet with plans to advance her to low-residue diet during her period of acute inflammation and the scoping was postponed since she was in high risk for perforation and the patient improved. Her white count went down to normal range. Her lowest hemoglobin was at 9.7. Creatinine level improved to normal with IV fluids. She required some morphine coverage and yesterday, she decided to leave against medical advice. I advised her to stay additional day until the next morning, but she decided to leave. Job ID: [id number]
== END 2019-02-11 20:42 | disposition left against medical advice (07) ==
LOC: ERS 09:01 → 2SW 14:18
PROVIDERS: ADMIT Internal Medicine; ATTEND Internal Medicine
DX: K57.33 Diverticulitis of large intestine without perforation or abscess with bleeding (principal); N28.9 Disorder of kidney and ureter, unspecified; E11.9 Type 2 diabetes mellitus without complications; E78.5 Hyperlipidemia, unspecified; I10 Essential (primary) hypertension; D64.9 Anemia, unspecified; E83.42 Hypomagnesemia; E78.00 Pure hypercholesterolemia, unspecified; F32.9 Major depressive disorder, single episode, unspecified; K21.9 Gastro-esophageal reflux disease without esophagitis; M19.90 Unspecified osteoarthritis, unspecified site; G47.33 Obstructive sleep apnea (adult) (pediatric); F17.210 Nicotine dependence, cigarettes, uncomplicated; Z87.19 Personal history of other diseases of the digestive system; Z88.0 Allergy status to penicillin; Z79.84 Long term (current) use of oral hypoglycemic drugs; Z79.82 Long term (current) use of aspirin; Z79.899 Other long term (current) drug therapy
CPT/HCPCS: 74176; 80048 ×3; 80053; 81003; 82274; 83735; 84484 ×2; 85025 ×3; 86850; 86900; 86901; 93005; 96361 ×4; 96365; 96366 ×2; 96367; 96375; 96376 ×3; 99285; G0378 ×3; 36415; 93010; 96374; J0744; J2270; J2405; J3475; Q9967

== ENCOUNTER 2019-04-12 17:18 | Observation (INO) | payer MEDICARE ==
[2019-04-12] MEDS ORDERED: Ondansetron PF 4 MG/2 ML Vial ONE (19:10)
[2019-04-12] MEDS ORDERED: Morphine 4 MG/ML VIAL ONE (19:10)
[2019-04-12 19:35] LABS: #Lymphocytes 0.8 thou/uL (1.20-3.40); #Monocytes 0.6 thou/uL (0.11-0.59); #Neutrophils 10.2 thou/uL (1.40-6.50); %Basophils 0.1 % (0.0-1.0); %Eosinophils 0.1 % (0.0-10.0); %Lymphocytes 6.6 % (21.0-51.0); %Neutrophils 88.2 % (42.0-75.0); Hemoglobin 11.2 g/dL (12.0-16.0); Mean Corpuscular HGB CONC 33.5 g/dL (32.0-36.0); Mean Corpuscular Hemoglobin 29.7 pg (27.0-31.0); Mean Corpuscular Volume 88.4 fL (78.0-98.0); Mean Platelet Volume 8.6 fL (7.4-10.4); Platelet Count 246 thou/uL (130-400); RBC Distribution Width 14.5 % (11.5-14.5); Red Blood Cell (RBC) Count 3.79 mill/uL (4.20-5.40); White Blood Cell (WBC) Count 11.6 thou/uL (4.8-10.8)
[2019-04-12 19:55] LABS: ALT (SGPT) 18 U/L (8-55); AST (SGOT) 22 U/L (5-34); Albumin 3.6 g/dL (3.4-4.8); Alkaline Phosphatase 112 U/L (40-150); Anion Gap 15 mmol/L (10-20); BUN (Urea Nitrogen) 30 mg/dL (9.8-20.1); Bilirubin, Total 0.3 mg/dL (0.2-1.2); CK (CPK) 21 U/L (29-168); Calc. Creatinine Clearance 0 mL/min (70-130); Calcium 9.3 mg/dL (7.8-10.44); Carbon Dioxide 20 mmol/L (23-31); Chloride 104 mmol/L (98-107); Estimated GFR-MDRD 23; Globulin 2.8 g/dL (2.4-3.5); Glucose 140 mg/dL (80-115); Lipase 27 U/L (8-78); Potassium 3.8 mmol/L (3.5-5.1); Protein, Total 6.4 g/dL (6.0-8.3); Sodium 135 mmol/L (136-145)
--- NOTE | 2019-04-12 21:01 | CT ---
CT ABDOMEN NONCONTRAST CT PELVIS NONCONTRAST: (Urolithiasis protocol) DATE: 04/12/2019 HISTORY: 63-year-old female with left lower quadrant abdominal pain, nausea, and vomiting. COMPARISON: 02/09/2019 TECHNIQUE: IV injection of iodinated contrast media: None Oral contrast media: None FINDINGS: Other than for urolithiasis, the lack of IV and oral contrast limits the evaluation. The appearance of the entire descending colon is similar to that of the previous CT, with collapsed l umen, apparent mural thickening and mural edema, and pericolonic fat stranding representing pericolonic edema. However, the pericolonic fat stranding is greater on the current CT compared to th e previous. Bilateral pedicle screws at L4, L5, and S1, with interbody cage material at the L4-5 and L5-S1 disc s paces, without evidence of successful ankylosis. There is lucency around the left L4 pedicle screw. Laminectomy defects from L2-3 through L4. Small to moderate-sized hiatal hernia. Suture line around stomach. No pleural effusion or consolidati on at lung bases. No ascites or pneumoperitoneum. No small bowel dilation. No renal, ureteral, or bladder calculus. No hydronephrosis. Within the limitations of a noncontrast scan, no major pathology identified involving kidneys, pancreas, liver, adrenals, spleen, or appendix. IMPRESSION: 1) evidence for colitis involving the descending colon. 2) no urolithiasis or obstructive uropathy. 3) small to moderate-sized hiatal hernia. 4) status post bariatric surgery. 5) status post posterior lumbar interbody fusion in the mid to lower lumbar spine. 6) evidence for hardware loosening involving the left L4 pedicle screw. 7) status post midline laminectomy at mid lumbar spine.
[2019-04-12 22:13] LABS: Bilirubin Negative (Negative); Blood, Urine Negative (Negative); Clarity Clear (Clear); Glucose, Urine (Dipstick) Normal (Negative); Leukocyte Negative Leu/uL (Negative); Nitrite Negative (Negative); Protein, Urine (Dipstick) Negative (Neg-Trace); Urobilinogen Normal mg/dL (Less than 2)
[2019-04-13] MEDS ORDERED: Calcium Carbonate 500 MG ChewTAB PO PRN (08:54)
[2019-04-13] MEDS ORDERED: Ondansetron ODT 4 MG TAB PO PRN (08:54)
[2019-04-13] MEDS ORDERED: Acetaminophen 325 MG TAB PO PRN (08:54)
[2019-04-13] MEDS ORDERED: Ondansetron PF 4 MG/2 ML Vial IVP PRN (08:54)
[2019-04-13] MEDS ORDERED: PROVENTIL INHALER 6.7 G (200 INHALATIONS) INH PRN (08:56)
[2019-04-13] MEDS ORDERED: Dextrose 50% Abboject 50 ML SYRINGE SLOW IVP PRN (08:57)
[2019-04-13] MEDS ORDERED: Insulin Regular 300 UNITS/3 ML VIAL SC PRN ×2 (08:57)
[2019-04-13] MEDS ORDERED: Dextrose 5% in Water 1,000 ML IV PRN (08:57)
[2019-04-13] MEDS ORDERED: Famotidine 20 MG TAB PO SCH (09:00)
[2019-04-13 09:33] LABS: #Lymphocytes 0.8 thou/uL (1.20-3.40); #Monocytes 0.5 thou/uL (0.11-0.59); #Neutrophils 4.3 thou/uL (1.40-6.50); %Basophils 0.2 % (0.0-1.0); %Eosinophils 0.2 % (0.0-10.0); %Lymphocytes 13.6 % (21.0-51.0); %Monocytes 8.2 % (0.0-10.0); %Neutrophils 77.8 % (42.0-75.0); Hemoglobin 10.9 g/dL (12.0-16.0); Mean Corpuscular HGB CONC 33.1 g/dL (32.0-36.0); Mean Corpuscular Hemoglobin 29.3 pg (27.0-31.0); Mean Corpuscular Volume 88.6 fL (78.0-98.0); Mean Platelet Volume 8.6 fL (7.4-10.4); Platelet Count 217 thou/uL (130-400); RBC Distribution Width 14.4 % (11.5-14.5); White Blood Cell (WBC) Count 5.5 thou/uL (4.8-10.8)
[2019-04-13 09:53] LABS: ALT (SGPT) 21 U/L (8-55); AST (SGOT) 22 U/L (5-34); Albumin 3.3 g/dL (3.4-4.8); Alkaline Phosphatase 115 U/L (40-150); Anion Gap 12 mmol/L (10-20); BUN (Urea Nitrogen) 23 mg/dL (9.8-20.1); Bilirubin, Total 0.3 mg/dL (0.2-1.2); Calc. Creatinine Clearance 64 mL/min (70-130); Calcium 9.1 mg/dL (7.8-10.44); Carbon Dioxide 20 mmol/L (23-31); Chloride 108 mmol/L (98-107); Estimated GFR-MDRD 34; Globulin 2.4 g/dL (2.4-3.5); Glucose 144 mg/dL (80-115); Magnesium 1.2 mg/dL (1.6-2.6); Potassium 4.1 mmol/L (3.5-5.1); Protein, Total 5.7 g/dL (6.0-8.3); Sodium 136 mmol/L (136-145)
[2019-04-13] MEDS: Oxybutynin 5 MG TAB PO SCH (09:57)
[2019-04-13] MEDS: Gabapentin 300 MG CAP PO SCH ×2 (09:57→20:34)
[2019-04-13] MEDS: FLUoxetine HCl 20 MG CAP PO SCH (09:57)
[2019-04-13] MEDS: Aspirin 81 mg Enteric Coated Tablet PO SCH (09:58)
[2019-04-13] MEDS ORDERED: Zolpidem Tartrate 5 MG TAB PO PRN (09:58)
[2019-04-13] MEDS: Sodium Chloride 0.9% 1,000 ML IV SCH ×2 (09:58→23:50)
[2019-04-13] MEDS ORDERED: Magnesium Sulfate 2 GM in Sodium Chloride 0.9% 100 ML IVPB SCH (10:00)
[2019-04-13] MEDS ORDERED: Magnesium Sulfate 4 GM in Sodium Chloride 0.9% 250 ML 250 ML IVPB SCH (10:15)
[2019-04-13] MEDS: Bupropion 150 MG SR TAB PO SCH ×2 (10:48→20:34)
--- NOTE | 2019-04-13 11:10 | HP ---
PRIMARY CARE: Dr. Lopez. CHIEF COMPLAINT: Abdominal discomfort. HISTORY OF PRESENT ILLNESS: The patient is a 63-year-old patient with recent hospitalization for acute diverticulitis, presented to the emergency room with above complaints. The abdominal pain started suddenly while she was at home yesterday morning. It was moderate to severe in intensity on and off without any aggravating or relieving factor. She has been constipated lately. She was trying to have a bowel movement at that time. The abdominal pain got worse. She became clammy and felt weak. She fell on the floor without any loss of consciousness. She also had nausea with small amount of vomitus. No fever or chills reported. She is currently on antibiotics for UTI. She has also lost approximately 45 pounds in the last 1 month. She is due for a colonoscopy. She also has poor appetite recently. Her abdominal pain has significantly improved. She did not have any bowel movement since admission. She had large one, which was initially hard followed by watery stool. PAST MEDICAL HISTORY: 1. Diverticulitis. 2. GERD. 3. Diabetes mellitus, type 2. 4. Hypertension. 5. Hyperlipidemia. 6. Obstructive sleep apnea. 7. Depression. 8. Recent hospitalization for hyponatremia. 9. Recent UTI, currently on antibiotics. The patient has four tablets of antibiotics left. She is unable to recall the name of the antibiotic. PAST SURGICAL HISTORY: 1. Hysterectomy. 2. Back surgery. 3. Colonoscopy. 4. Knee arthroscopy. 5. Shoulder arthroscopy. 6. Vein stripping. ALLERGIES: THE PATIENT IS ALLERGIC TO PENICILLIN. CURRENT HOME MEDICATIONS: 1. Tylenol as needed. 2. Allopurinol 300 mg daily. 3. Aspirin 81 mg daily. 4. Lipitor 40 mg q.h.s. 5. Bupropion 150 mg b.i.d. 6. BuSpar as needed. 7. Fluoxetine 20 mg daily. 8. Lasix as needed. 9. Gabapentin 600 mg b.i.d. 10. Hydroxyzine as needed. 11. Metformin extended release 500 mg b.i.d. 12. Remeron 15 mg q.h.s. 13. Oxybutynin 5 mg q.p.m. 14. Protonix 40 mg daily. 15. Albuterol inhaler as needed. SOCIAL HISTORY: The patient currently lives at home with her . She is full code. She continues to smoke. She denies any suicidal ideation. She makes her own decision with the help of her . FAMILY HISTORY: Father with alcoholism. Mother with diabetes. REVIEW OF SYSTEMS: All other review of systems were reviewed and were found. PHYSICAL EXAMINATION: VITAL SIGNS: In the emergency room showed temperature of 97.6, respirations 20, pulse of 99, blood pressure 90/59, O2 saturation 94% on room air. GENERAL: A 63-year-old female, in no apparent distress. Denies any abdominal discomfort at this time. HEENT: Head, atraumatic and normocephalic. Sclerae anicteric. Dry mucous membranes. No oral lesion. NECK: Supple. No JVD appreciated. No carotid bruit. LUNGS: Clear to auscultation bilaterally. No wheezing, rales, or rhonchi. HEART: S1 and S2 present. Regular rate and rhythm. No rubs or gallops appreciated. ABDOMEN: Soft. There is mild tenderness in the left lower quadrant. No rebound or guarding. No costovertebral angle tenderness. EXTREMITIES: No edema or calf tenderness. NEUROLOGIC: Grossly nonfocal. Moves all 4 extremities. PSYCHIATRY: Alert, awake, and oriented x3. SKIN: Warm and dry. LYMPH NODES: No palpable lymph nodes in the neck. PERIPHERAL VASCULAR: Radial pulses palpable bilaterally. MUSCULOSKELETAL: No joint swelling or tenderness. LABORATORY FINDINGS: WBC 11.6 with 88.2% neutrophil, hemoglobin 11.2. Chemistry showed sodium 135, potassium 3.8, chloride 104, bicarb 20, BUN 30, and creatinine 2.16. Magnesium 1.2. CT scan of the abdomen and pelvis by my review showed colitis involving the descending colon with small to moderate size hiatal hernia. EKG by my review showed sinus rhythm without significant ST-T wave changes. Cardiac catheterization in 2017 showed mild coronary artery disease. IMPRESSION: 1. Generalized weakness, multifactorial. 2. Acute colitis of unclear etiology. Suspected inflammatory versus stercoral colitis. The patient did not have any bowel movement since admission. She is also currently on antibiotics for urinary tract infection. 3. Recent urinary tract infection, currently on antibiotics. 4. Dehydration with acute kidney injury on chronic kidney disease, stage 2. 5. Near syncope, suspected to be secondary to orthostatic hypotension. 6. Recent hospitalization for diverticulitis as well as hyponatremia secondary to syndrome of inappropriate antidiuretic hormone secretion. 7. Hypertension. 8. Diabetes mellitus, type 2. 9. Hyperlipidemia. 10. Anxiety. 11. Depression, mild, stable. The patient has appointment at [facility]. She denies any suicidal ideation at this time. 12. Small to moderate size hiatal hernia. 13. Ongoing tobacco abuse, the patient was counseled. 14. Gastroesophageal reflux disease. 15. Degenerative joint disease. 16. Obstructive sleep apnea. 17. Hypomagnesemia. PLAN: The patient will be monitored on the medical floor. We will hold antibiotics for now. We will replace electrolytes. We will resume anxiety/depression medications. We will hold metformin and Lasix as well as allopurinol. Recheck labs in a.m. Consult Gastroenterology. We will get stool workup. Walking program. We will get orthostatic vitals. The patient will require 2 to 3 days for stabilization. Clear liquids for now. Job ID: [id number]
[2019-04-13 14:17] VITALS: BMI 33.1
[2019-04-13] MEDS ORDERED: GoLYTELY 4,000 ml Bottle PO SCH (17:00)
[2019-04-13] MEDS ORDERED: Atorvastatin Calcium 40 MG TAB PO SCH (21:00)
[2019-04-13] MEDS ORDERED: Mirtazapine 15 MG TAB PO SCH (21:00)
[2019-04-13] MEDS ORDERED: Saccharomyces boulardii 250 MG CAP PO SCH (21:00)
[2019-04-14 05:53] LABS: #Lymphocytes 1.2 thou/uL (1.20-3.40); #Monocytes 0.6 thou/uL (0.11-0.59); #Neutrophils 4.6 thou/uL (1.40-6.50); %Basophils 0.6 % (0.0-1.0); %Eosinophils 0.1 % (0.0-10.0); %Lymphocytes 18.8 % (21.0-51.0); %Monocytes 9.7 % (0.0-10.0); %Neutrophils 70.7 % (42.0-75.0); Hemoglobin 10.9 g/dL (12.0-16.0); Mean Corpuscular HGB CONC 31.8 g/dL (32.0-36.0); Mean Corpuscular Hemoglobin 28.5 pg (27.0-31.0); Mean Corpuscular Volume 89.6 fL (78.0-98.0); Mean Platelet Volume 8.6 fL (7.4-10.4); Platelet Count 205 thou/uL (130-400); RBC Distribution Width 14.6 % (11.5-14.5); Red Blood Cell (RBC) Count 3.82 mill/uL (4.20-5.40); White Blood Cell (WBC) Count 6.4 thou/uL (4.8-10.8)
[2019-04-14 06:15] LABS: ALT (SGPT) 21 U/L (8-55); AST (SGOT) 20 U/L (5-34); Albumin 3.5 g/dL (3.4-4.8); Alkaline Phosphatase 108 U/L (40-150); Anion Gap 11 mmol/L (10-20); BUN (Urea Nitrogen) 14 mg/dL (9.8-20.1); Bilirubin, Total 0.2 mg/dL (0.2-1.2); Calc. Creatinine Clearance 77 mL/min (70-130); Calcium 8.9 mg/dL (7.8-10.44); Carbon Dioxide 23 mmol/L (23-31); Chloride 107 mmol/L (98-107); Estimated GFR-MDRD 48; Globulin 2.6 g/dL (2.4-3.5); Glucose 128 mg/dL (80-115); Magnesium 1.7 mg/dL (1.6-2.6); Potassium 4.2 mmol/L (3.5-5.1); Protein, Total 6.1 g/dL (6.0-8.3); Sodium 137 mmol/L (136-145)
--- NOTE | 2019-04-14 08:28 | CON ---
DATE OF CONSULTATION: HISTORY OF PRESENT ILLNESS: Ms. Lopez came into the hospital yesterday. She states that she was having had abrupt onset of left lower quadrant pain and left flank pain. It is like she needed a bowel movement, she went to the bathroom, she strained and strained and then finally had a bowel movement. She got up and then she had on and off left lower quadrant spasming pain and had a presyncopal episode. She had ongoing pain and came to the emergency room here. She had a CAT scan that showed thickening of the colon from the distal transverse down to the descending and proximal sigmoid. This was very similar, but not as severe as her CAT scan when she presented in February and was diagnosed with diverticulitis. She states this episode was very similar to that except for that episode she had quite a bit of copious bleeding and the pain was much worse. She reports in the distant past, she was seen by Dr. Carmona for "colitis." I do not have those records to look at. She was seen by Dr. Cole when she was in a hospital in February and she is supposed to have a colonoscopy in May. She actually states she got a call from the office to follow up in the next few weeks there, today they were not aware she was in the hospital. Other history is notable for that she has had some poor appetite recently, had a 45-pound weight loss in the last month. Presently, her abdominal pain has resolved. She had no fever or chills. PAST MEDICAL HISTORY: "Diverticulitis", reflux, diabetes, hypertension, hyperlipidemia, obstructive sleep apnea, depression, recent hospitalization for hyponatremia, and recent UTI, currently on antibiotics. PAST SURGICAL HISTORY: Hysterectomy, back surgery, colonoscopy, shoulder arthroscopy, vein stripping. ALLERGIES: PENICILLIN. MEDICATIONS AT HOME: 1. Tylenol. 2. Allopurinol. 3. Aspirin. 4. Lipitor. 5. Bupropion. 6. BuSpar. 7. Fluoxetine. 8. Lasix. 9. Gabapentin. 10. Hydralazine. 11. Metformin. 12. Remeron. 13. Oxybutynin. 14. Protonix. 15. Albuterol. SOCIAL HISTORY: The patient lives at home with her . She is a full code. She continues to smoke about a half pack per day. She does not drink or use drugs. FAMILY HISTORY: Alcoholism. Mother with diabetes. REVIEW OF SYSTEMS: Recently, she had an episode of severe psychosis, she did not know where she was. She was having to go to [facility]. She denies any melena. She denies any hematemesis. PHYSICAL EXAMINATION: VITAL SIGNS: Temperature is 98.1. She has been afebrile since admission. Pulse 76, blood pressure 133/82. LUNGS: Clear. HEART: Regular rate and rhythm without clicks or murmurs.. ABDOMEN: Soft and nontender. There is no rebound. There is no guarding. EXTREMITIES: No clubbing, cyanosis, or edema. NEUROLOGIC: She is alert and oriented to person, place, and time. LABORATORY DATA: White count was 11.6, it is now 5.5. Hemoglobin is 10.9, it is about at her baseline. Platelet count is 217. Sodium 136, potassium was 4.3, chloride is 109, bicarb 20. BUN and creatinine are 23 and 1.55, down from 30 and 2.16. Magnesium was 1.2, protein 5.7, albumin 3.3. Immunology, urine drug screen on 03/26 was negative except for benzodiazepines. CAT scan reviewed with Radiology. These were without contrast. There is a long segment of thickened colon in descending and splenic flexure, down to the proximal sigmoid. Radiology agrees this is a little bit long for diverticular disease. ASSESSMENT: Colitis by CAT scan. Her history, last she was here in February, they said that she had diverticulitis. In retrospect, I wonder if this is ischemic colitis. It has been . She is on anticholinergics for bladder issues, which could be the exacerbating factors. She has also been losing weight, recently not eating well. RECOMMENDATIONS: Upper and lower endoscopy tomorrow to evaluate for diverticular disease versus ischemic colitis and also with regard to her poor appetite and poor intake and reported history of 45-pound weight loss. If these studies are negative or they confirm ischemic colitis with her weight loss, I would go ahead and consider getting a CT mesenteric angiogram as well. Job ID: [id number]
[2019-04-14] MEDS ORDERED: Saccharomyces boulardii 250 MG CAP PO SCH (09:00)
[2019-04-14] MEDS: Bupropion 150 MG SR TAB PO SCH (11:53)
[2019-04-14] MEDS: Aspirin 81 mg Enteric Coated Tablet PO SCH (11:54)
[2019-04-14] MEDS: Gabapentin 300 MG CAP PO SCH (11:54)
[2019-04-14] MEDS: Oxybutynin 5 MG TAB PO SCH (11:54)
[2019-04-14] MEDS: FLUoxetine HCl 20 MG CAP PO SCH (11:54)
[2019-04-14] MEDS ORDERED: Lidocaine 1% PF 5 ML VIAL ONE (12:45)
[2019-04-14] MEDS ORDERED: PROPOFOL 200 MG/20 ML VIAL ONE (12:45)
[2019-04-14 13:12] VITALS: BP 159/92; TEMP 98.2
--- NOTE | 2019-04-14 20:28 | OP ---
DATE OF PROCEDURE: 04/14/2019 PROCEDURE PERFORMED: Esophagogastroduodenoscopy with biopsy. PREOPERATIVE DIAGNOSES: Chronic dyspepsia and nausea. POSTOPERATIVE DIAGNOSES: 1. Normal esophagus. 2. Large hiatus hernia. 3. Mild antral gastritis. 4. A 2.5 to 3 cm size submucosal polypoid lesion over the greater curvature. 5. Normal duodenum. DESCRIPTION OF PROCEDURE: The patient was placed on her left lateral position and was given sedation by Anesthesia Department. A Pentax video gastroscope under direct vision was passed down to the oropharynx past the GE junction into the stomach and subsequently into the descending duodenum. The esophageal mucosa appeared normal. In the GE junction, no pathology. The patient had a large hiatus hernia. Retroflexion failed to show any pathology in the fundus or cardia. In the gastric body, no pathology. Over the gastric antrum, the patient was found to have mild antral gastritis. There was a submucosal polypoid lesion that appeared benign endoscopically over the greater curvature over the lower part of the body close to the antrum. This was biopsied. In the duodenal bulb and descending duodenum, no pathology. The stomach was decompressed and the scope was removed. Job ID: [id number]
--- NOTE | 2019-04-15 08:16 | DIS ---
DATE OF ADMISSION: 04/12/2019 DATE OF DISCHARGE: 04/14/2019 DISCHARGE DISPOSITION: Home. FOLLOWUP VISITS: 1. Follow up with primary care physician, Dr. Lopez in 1 week. 2. Follow up with Gastroenterology, Dr. Cole in 1 to 2 weeks. The patient was seen and examined on the day of discharge. Denies any new complaints. No chest pain, shortness of breath, or palpitations reported. BRIEF HOSPITAL COURSE: The patient is a 63-year-old patient with recent hospitalization for acute diverticulitis, presented to the emergency room with abdominal discomfort. CT scan of the abdomen showed colitis involving the descending colon. She was evaluated by Gastroenterology. She underwent EGD as well as colonoscopy. EGD showed normal esophagus with large hiatal hernia with 2.5 to 3 cm size submucosal polypoid lesion over the greater curvature with mild antral gastritis. Colonoscopy showed mild colitis per Dr. Mckeon's workable report. Official report is pending at this time. The patient has been cleared by Gastroenterology for discharge. She was not started on antibiotic this admission. FINAL DIAGNOSES: 1. Generalized weakness, multifactorial. 2. Acute colitis of unclear etiology. Suspected ischemic versus stercoral colitis. 3. Recent urinary tract infection, currently on antibiotics. 4. Dehydration with acute kidney injury on chronic kidney disease stage 2. Creatinine on admission was 2.16, at discharge is 1.13. She will benefit from a repeat basic metabolic profile after 1 week. 5. Near syncope at home probably secondary to hypotension. 6. Recent hospitalization for diverticulitis as well as hyponatremia secondary to Syndrome of inappropriate antidiuretic hormone secretion. 7. Hypertension. 8. Diabetes mellitus type 2. 9. Anxiety. 10. Hyperlipidemia. 11. Depression, mild, stable. 12. Hiatal hernia. 13. Ongoing tobacco abuse. The patient was counseled. 14. Gastroesophageal reflux disease. 15. Obstructive sleep apnea. 16. Hypomagnesemia. Magnesium was 1.2. At discharge is 1.7. 17. Degenerative joint disease. PLAN: Plan of care was discussed with the patient in detail. She stated understanding. Job ID: [id number]
--- NOTE | 2019-04-15 09:10 | OP ---
DATE OF PROCEDURE: 04/14/2019 PROCEDURE PERFORMED: Colonoscopy with biopsy. PREOPERATIVE DIAGNOSIS: A 63-year-old female with abdominal pain, colitis on CAT scan. She had same symptoms a month ago and has second symptoms and hospitalized. CAT scan did show some colitis involving the descending colon and transverse colon. The patient underwent colonoscopy. POSTOPERATIVE DIAGNOSES: 1. Sigmoid diverticular disease. 2. Patchy areas of whitish spots and some ulcerations involving the high sigmoid colon and descending colon junction. The area is limited to 20 cm. The transverse colon looks actually normal. DESCRIPTION OF PROCEDURE: The patient was placed on left lateral position and was given sedation by Anesthesia Department. A rectal exam was done. The scope was advanced into the rectum. No lesions felt on rectal exam. A Pentax video colonoscope was introduced into the rectum and advanced all the way into the cecum. The patient had pockets of fecaloids, especially in the right colon and left colon. It was seen mostly sigmoid colon and also descending colon area. The rectal mucosa appeared normal. The lower sigmoid mucosa appeared normal. The patient had sigmoid diverticular disease .There was colitis seen, corresponding to the high sigmoid colon area and descending colon junction. The patient found to have an area of _patchy whitish spots and some ulceration. The findings are limited to a distance of about 20 cm.._Biospy of area obtained . However over this area, the mucosa appears normal with normal vascular pattern. The cecum, ascending colon, hepatic flexure, transverse colon, splenic flexure, and the descending colon, no pathology seen. Retroflexion of rectum showed hemorrhoids. Overall impression,- focal colitis involving a segment of sigmoid colon, descending colon. The patient most likely has ischemic colitis, which appears to be resolving.. Biopsies were obtained. Depending on the biopsy, we will make further recommendations. Job ID: [id number] [facility]
== END 2019-04-14 16:41 | disposition home or self-care (01) ==
LOC: ERS 17:18 → T4-B 22:38 → INTOOBSV 22:38
PROVIDERS: ADMIT Hospitalist; ATTEND Hospitalist
PROC: 0DBM8ZX Excision of Descending Colon, Via Natural or Artificial Opening Endoscopic, Diagnostic (ICD-10-PCS; principal; 2019-04-12)
PROC: 0DBN8ZX Excision of Sigmoid Colon, Via Natural or Artificial Opening Endoscopic, Diagnostic (ICD-10-PCS; 2019-04-12)
PROC: 0DB68ZX Excision of Stomach, Via Natural or Artificial Opening Endoscopic, Diagnostic (ICD-10-PCS; 2019-04-12)
DX: K52.9 Noninfective gastroenteritis and colitis, unspecified (principal); K57.30 Diverticulosis of large intestine without perforation or abscess without bleeding; K63.3 Ulcer of intestine; K31.89 Other diseases of stomach and duodenum; K44.9 Diaphragmatic hernia without obstruction or gangrene; K29.70 Gastritis, unspecified, without bleeding; N39.0 Urinary tract infection, site not specified; I12.9 Hypertensive chronic kidney disease with stage 1 through stage 4 chronic kidney disease, or unspecified chronic kidney disease; E11.22 Type 2 diabetes mellitus with diabetic chronic kidney disease; N18.2 Chronic kidney disease, stage 2 (mild); N17.9 Acute kidney failure, unspecified; E86.0 Dehydration; R55 Syncope and collapse; F41.9 Anxiety disorder, unspecified; E78.5 Hyperlipidemia, unspecified; F32.9 Major depressive disorder, single episode, unspecified; F17.210 Nicotine dependence, cigarettes, uncomplicated; K21.9 Gastro-esophageal reflux disease without esophagitis; G47.33 Obstructive sleep apnea (adult) (pediatric); E83.42 Hypomagnesemia; M19.90 Unspecified osteoarthritis, unspecified site; Z79.82 Long term (current) use of aspirin; Z79.84 Long term (current) use of oral hypoglycemic drugs; Z79.899 Other long term (current) drug therapy; Z88.0 Allergy status to penicillin
CPT/HCPCS: 43239; 45380; 74176; 80053 ×3; 81003; 82550; 82962 ×2; 83630; 83690; 83735 ×2; 85025 ×3; 87045; 87046; 87324; 87427 ×2; 87449 ×2; 88305; 88312; 96361 ×3; 96374; 96375; 97139 ×2; 99285; G0378 ×2; 36415; 36416; J2001; J2270; J2405; J2704; J3475; J7050

== ENCOUNTER 2020-05-15 08:53 | Outpatient (CLI) | payer MEDICARE ==
--- NOTE | 2020-05-15 14:35 | NM ---
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 RADIOPHARMACEUTICAL: 33 mCi technetium-99m MDP injected intravenously. FINDINGS: No increased blood flow or blood pooling is seen to either knee. Delayed images demonstrate postop ch anges of right knee arthroplasty without abnormally intense tracer localization. There are a couple of sequential foci of increased uptake in the left anterior ribs likely due to cos tochondritis or trauma. Increased uptake in the shoulders and feet are consistent with degenerative c hanges. There is also heterogeneity in the spine consistent degenerative changes. Tracer excretion th rough the kidneys is within normal limits. IMPRESSION: No evidence of infection or loosening of the right knee prosthesis. POS: MELONIE
== END 2020-05-15 08:54 | disposition home or self-care (01) ==
LOC: NM 08:53
PROVIDERS: ATTEND Orthopaedic Surgery
DX: T84.032A Mechanical loosening of internal right knee prosthetic joint, initial encounter (principal); T84.59XA Infection and inflammatory reaction due to other internal joint prosthesis, initial encounter
CPT/HCPCS: 78315; A9503

== ENCOUNTER 2020-08-07 06:52 | Day surgery (SDC) | payer MEDICARE ==
[2020-08-02 10:35] VITALS: BMI 38.0
[~2020-08-07 06:52] MED LIST: FLU VACC QS2020-21(65YR UP)/PF 240 MCG/0.7 ML SYRINGE IM ONE
[2020-08-07 07:43] VITALS: BP 126/76; TEMP 97
--- NOTE | 2020-08-07 09:56 | CT ---
CT-GUIDED MYELOGRAM LUMBAR: DATE: 08/07/2020 HISTORY: 64-year-old female with low back pain and lumbar radiculopathy TECHNIQUE: Signed informed consent obtained. Patient placed prone on CT table. Skin of lower back prepared and d raped in usual sterile fashion. 25-gauge needle used to apply buffered lidocaine superficially and deeply. Level selected:L2 through laminectomy defect. Approach:midline. 22-gauge spinal needle advanced into spinal canal under step CT guidance. 10 mL Isovue M200 contrast media was injected into the intrathecal space. Spinal needle was removed. Patient tolerated procedure well. No complications. FINDINGS: Spinal needle is barely within contrast filled thecal sac which is severely stenotic and displaced po steriorly and to the left, due to large disc extrusion occupying the majority of the cross-sectional area of the spinal canal at the level of injection. IMPRESSION: 1) Large disc extrusion causing severe thecal sac stenosis at the level of needle access, L2. 2) See separate report of subsequent CT lumbar myelogram.
--- NOTE | 2020-08-07 10:35 | CT ---
CT lumbar spine with contrast: (CT lumbar myelogram) 08/07/2020 HISTORY: 64-year-old female with low back pain and lumbar radiculopathy COMPARISON: None available. FINDINGS: Left external iliac artery stent. There are 5 lumbar-type vertebrae. Vertebral body heights and disc spaces are maintained. No scoliosis. T12-L1: No central or neural foraminal stenosis. Minimal broad-based disc/osteophyte complex abuts ve ntral surface of spinal cord, mildly indenting it. T12-L1: Disc space maintained. No central or high-grade neural foraminal stenosis. L1-2: Disc space maintained. No central or high-grade neural foraminal stenosis. Conus medullaris ter minates at this level. L2-3: Vacuum disc phenomenon. Mild to moderate disc space narrowing. Slight retrolisthesis of L2 on L 3. Diffuse disc bulge. Midline laminectomy defect. Left paracentral disc extrusion with inferior migration. Right paracentral disc herniation contiguous with large migrated extruded disc material at L3. Strictly speaking at the disc space level, the degree of thecal sac stenosis is only mild, due to the combination from the midline laminectomy defect. Moderate right neural foraminal stenosis and severe left neural foraminal stenosis due to the combination of retrolisthesis and diffuse disc bulge plus mild to moderate facet DJD hypertrophy. L3: Severe stenosis of the thecal sac due to large extradural mass centered in the right anterior asp ect of the spinal canal, representing migrated extruded disc material, which displaces cauda equina nerve roots posteriorly, crowding them together. This results in tortuosity of the cauda equina at le vels superior and inferior to this. The thecal sac stenosis with be worse, if not for the midline laminectomy defect. L3-4: Moderate bilateral facet DJD causes grade 1 anterolisthesis of L3 on L4. Vacuum disc phenomenon . Mild disc space narrowing. Diffuse disc bulge. Right paracentral-lateral focal herniation contiguous with the large extruded disc mass at L3 described above. All of this is partially accommod ated by midline laminectomy defect, such that the degree of thecal sac stenosis is only mild-moderate. Moderate or severe bilateral neural foraminal stenosis filled with disc bulge or scar tissue. No high-grade bony neural foraminal stenosis. Bilateral L4 pedicle screws. Lucency around the anterior aspect of the left L4 pedicle screw. L4-5: Interbody cage material. Bilateral L5 pedicle screws. Grade 1 anterolisthesis of L4 on L5. Righ t inferior L4 facetectomy. Moderate bilateral neural foraminal stenosis. Midline-posterior and right posterior indentation of thecal sac by thickened right ligamentum flavum. Moderate thecal sac s tenosis, especially on right side. L5-S1: No central spinal canal or thecal sac stenosis. Moderate bony bilateral neural foraminal steno sis due to bony overgrowth of posterior elements. Interbody cage material within moderately narrowed disc space. No bony bridges between the endplates across the disc space. Bilateral S1 pedicl e screws. 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 This represents a large migrated disc extrusion, either superiorly migrated from the L3-4 disc or inferiorly migrated from the L2-3 disc. 2) grade 1 spondylolisthesis at L3-4. 3) multilevel high-grade neural foraminal stenosis, worst on the left at L2-3 (severe). 4) status post posterior lumbar interbody fusion at L4-L5-S1, including bilateral pedicle screws at t hose 3 levels. 5) hardware loosening limited to around the anterior aspect of the left L4 pedicle screw.
== END 2020-08-07 10:17 | disposition home or self-care (01) ==
LOC: RAD 06:52 → EDSTATUS 08:00 → RAD 10:17
PROVIDERS: ATTEND Neurological Surgery
DX: M51.16 Intervertebral disc disorders with radiculopathy, lumbar region (principal); M43.16 Spondylolisthesis, lumbar region; M48.061 Spinal stenosis, lumbar region without neurogenic claudication; D43.4 Neoplasm of uncertain behavior of spinal cord; I10 Essential (primary) hypertension; K21.9 Gastro-esophageal reflux disease without esophagitis; E78.00 Pure hypercholesterolemia, unspecified; F32.9 Major depressive disorder, single episode, unspecified; F41.9 Anxiety disorder, unspecified; M19.90 Unspecified osteoarthritis, unspecified site; M10.9 Gout, unspecified; J44.9 Chronic obstructive pulmonary disease, unspecified; G47.33 Obstructive sleep apnea (adult) (pediatric); Z79.899 Other long term (current) drug therapy; Z87.891 Personal history of nicotine dependence; Z88.0 Allergy status to penicillin
CPT/HCPCS: 72132; 77002

== ENCOUNTER 2020-09-07 12:26 | Outpatient (CLI) | payer MEDICARE ==
[2020-09-08 06:44] LABS: SARS-CoV-2 PCR by NAA Not Detected (NotDetected)
== END 2020-09-07 12:27 | disposition home or self-care (01) ==
LOC: LABBT 12:26
PROVIDERS: ATTEND Neurological Surgery
DX: Z01.812 Encounter for preprocedural laboratory examination (principal); M48.062 Spinal stenosis, lumbar region with neurogenic claudication; M51.26 Other intervertebral disc displacement, lumbar region
CPT/HCPCS: U0003; U0005; 87635

== ENCOUNTER 2020-09-12 05:58 | Inpatient (IN) | payer MEDICARE ==
[2020-09-08 13:24] VITALS: BMI 39.1
--- NOTE | 2020-09-08 19:40 | HP ---
REASON FOR H AND P: Surgery on 09/12/2020, case #[id number]. CHIEF COMPLAINT: Lower back and right leg pain. HISTORY OF PRESENT ILLNESS: Ms. Lopez is a 64-year-old female with worsening lower back and right leg pain for the past 3 months, history of lumbar fusion by Dr. Young in 2015, and an L2-3, L3-4 laminectomy on November [address] Sandoval. Pain and paresthesias radiate into her right gluteal muscle, entire thigh, now passing her knee. She can walk about 20 feet before she has to sit and lean forward to alleviate some of her pain. She does have weakness in her right leg and often has to use a walker to ambulate. She has tried conservative management, treatment without any long-lasting relief of her symptoms. Denies bladder or bowel dysfunction. REVIEW OF SYSTEMS: CONSTITUTIONAL: Denies fever or chills. ENT: Denies change in vision or hearing. CARDIAC: Denies chest pain, shortness of breath, or diaphoresis. PULMONARY: Denies shortness of breath, cough, or hemoptysis. GI: Denies fecal incontinence, abdominal pain, nausea, vomiting, diarrhea, change in stool formation and consistency. : Denies urinary incontinence, trouble with urination, frequency of urination, bloody urine. SKIN: Denies skin rash, bruising, bleeding, skin masses. MUSCULOSKELETAL: As per History of Present Illness. NEUROLOGICAL: As per History of Present Illness. PSYCHOLOGICAL: Denies anxiety, depression, behavior changes. MEDICAL HISTORY: HBP, reflux, high cholesterol, depression, anxiety, arthritis, allergies, gout, bladder problems, COPD, diabetes, hypertension. SURGERIES: Knee replacement, 07/2017; shoulder surgery, 2016; lumbar fusion, Dr. Young, 2016; L2-3, L3-4 laminectomy, Dr. Sandoval, 2019. HOSPITALIZATIONS: Difficulty in breathing 06/23/2018 and above surgeries. FAMILY HISTORY: Father , family history unknown. Mother , diagnosed with diabetes and hypertension. Children alive. SOCIAL HISTORY: Former smoker. Denies illicit drugs or alcohol use. MEDICATIONS: 1. Atorvastatin. 2. Zolpidem. 3. Mirtazapine. 4. Baby aspirin. 5. Allopurinol. 6. Amlodipine. 7. Fluoxetine. 8. Oxybutynin. 9. Furosemide. 10. Pantoprazole. 11. Lisinopril-Hydrochlorothiazide. 12. Gabapentin 13. Glipizide 14. Tizanidine 15. Polyethylene glycol 16. Acetaminophen 17. Albuterol ALLERGIES: PENICILLIN. PHYSICAL EXAMINATION: VITAL SIGNS: Weight 250, height 5 feet 8 inches, BMI 38. HEENT: Pupils are equal. Extraocular movements are intact. NECK: Normal, soft, and supple. No masses are noted. Range of motion is intact and nonpainful. NEUROLOGICAL: Awake, alert, and oriented x3. Memory, attention, fund of knowledge, and language are normal. Cranial nerves are grossly intact. Gait and station, there is less swing through the right leg. Motor exam, mild quad and anterior tib weakness on the right. Sensory exam; mild loss in L4 on the right. Reflex exam; either knee with normal reflexes, slightly reduced on the right. IMAGING STUDIES: Myelogram, L-spine, small HLD L2-3. Large HLD L3-4. Right L3 pars fracture. X-ray, L-spine, flexion and extension stable. ASSESSMENT: 1. 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 2. Spinal stenosis of the lumbar region with neurogenic claudication. PLAN: 1. Redo L3-4. Remove the L3-S1 pancho. Replace the L4-S1 pancho. 2. Preop labs; CBC, PT, PTT, COVID-19. 3. Clearance. 4. Eliazar frame. INFORMED CONSENT: We discussed the indications, risks, benefits, alternatives, and expected results from surgery. The risks discussed included, but were not limited to, bleeding, infection, CSF leak, nerve damage, weakness, incontinence, cauda equina injury, arachnoiditis, paralysis, ventilator dependency, wheelchair dependency, loss of vision, cardiopulmonary complications of anesthesia or . Long-term complications discussed included, but were not limited to spinal instability and future surgery. She understands the risks and is willing to proceed. Job ID: [id number] [facility]
[2020-09-12] MEDS ORDERED: Bupivacaine PF 0.5% 30 ML VIAL ONE (06:10)
[2020-09-12] MEDS ORDERED: EPINEPHrine 1 MG/ML AMP ONE (06:10)
[2020-09-12] MEDS ORDERED: Thrombin 5000 UNITS/5 ML VIAL ONE (06:10)
[2020-09-12 06:22] LABS: #Lymphocytes 1.8 thou/uL (1.20-3.40); #Monocytes 0.5 thou/uL (0.11-0.59); #Neutrophils 5.4 thou/uL (1.40-6.50); %Basophils 0.5 % (0.0-1.0); %Eosinophils 0.4 % (0.0-10.0); %Lymphocytes 23.1 % (21.0-51.0); %Neutrophils 70.1 % (42.0-75.0); Hemoglobin 10.3 g/dL (12.0-16.0); Mean Corpuscular HGB CONC 30.2 g/dL (32.0-36.0); Mean Corpuscular Volume 86.1 fL (78.0-98.0); Platelet Count 301 thou/uL (130-400); RBC Distribution Width 15.2 % (11.5-14.5); Red Blood Cell (RBC) Count 3.97 mill/uL (4.20-5.40); White Blood Cell (WBC) Count 7.7 thou/uL (4.8-10.8)
[2020-09-12 06:27] LABS: INR-International Normal Ratio 0.9; Prothrombin Time 12.6 sec (12.0-14.7)
[2020-09-12] MEDS ORDERED: Fentanyl 250 MCG/5 ML VIAL ONE (06:27)
[2020-09-12] MEDS ORDERED: Clindamycin/D5W 900 mg/50 ml Premix Bag ONE (06:27)
[2020-09-12] MEDS ORDERED: Midazolam HCl 2 mg/2 ml Vial ONE (06:27)
[2020-09-12 06:28] LABS: PTT 33.6 sec (22.9-36.1)
[2020-09-12] MEDS ORDERED: Levofloxacin 500 mg/D5W 100 ml Premix Bag ONE (06:28)
[2020-09-12] MEDS ORDERED: Promethazine 25 MG TAB PO PRN (07:06)
[2020-09-12] MEDS ORDERED: Scopolamine 1.5 mg/72 hour Patch TD PRN (07:06)
[2020-09-12] MEDS ORDERED: diphenhydrAMINE 25 MG CAP PO PRN (07:06)
[2020-09-12] MEDS ORDERED: Promethazine HCl 25 MG/ML VIAL IM PRN ×2 (07:06→13:22)
[2020-09-12] MEDS ORDERED: traMADol HCl 50 MG TAB PO PRN (07:06)
[2020-09-12] MEDS ORDERED: Acetaminophen 325 MG TAB PO PRN (07:06)
[2020-09-12] MEDS ORDERED: Milk Of Magnesia 30 ML UDCUP PO PRN (07:06)
[2020-09-12] MEDS ORDERED: Fluticasone Propionate Nasal Spray 16 gm Bottle NASAL PRN (07:12)
[2020-09-12] MEDS ORDERED: Acetaminophen ER (8hr) 650 MG TAB PO PRN ×2 (07:12→07:21)
[2020-09-12] MEDS ORDERED: hydrOXYzine 25 MG TAB PO PRN (07:12)
[2020-09-12] MEDS ORDERED: Albuterol 200 PUFF (6.7GM INHALER) INH PRN (07:27)
[2020-09-12] MEDS ORDERED: Zolpidem Tartrate 5 MG TAB PO PRN (07:34)
[2020-09-12] MEDS ORDERED: Phenylephrine 10 MG/ML VIAL ONE (08:10)
[2020-09-12] MEDS ORDERED: PROPOFOL 200 MG/20 ML VIAL ONE (11:33)
[2020-09-12] MEDS ORDERED: Glycopyrrolate 0.2 MG/ML 5 ML SYRINGE ONE (11:33)
[2020-09-12] MEDS ORDERED: Rocuronium Bromide 10 MG/ML (10ML VIAL) ONE (11:33)
[2020-09-12] MEDS ORDERED: Labetalol HCl 100 MG/20 ML VIAL ONE (11:33)
[2020-09-12] MEDS ORDERED: Lidocaine 1% PF 5 ML VIAL ONE (11:33)
[2020-09-12] MEDS ORDERED: ePHEDrine 50 MG/ML VIAL ONE (11:33)
[2020-09-12] MEDS ORDERED: PHENYLEPHRINE-NS 100 MCG/ML 10 ML SYRINGE ONE (11:33)
[2020-09-12] MEDS ORDERED: Sodium Chloride 0.9% 10 ML ONE (11:43)
[2020-09-12] MEDS ORDERED: Promethazine HCl 25 MG/ML VIAL SLOW IVP PRN (13:22)
[2020-09-12] MEDS ORDERED: Ondansetron HCl/PF 4 MG/2 ML Vial IVP PRN (13:22)
[2020-09-12] MEDS ORDERED: HYDROmorphone 2 MG/ML VIAL SLOW IVP PRN (13:22)
[2020-09-12] MEDS: busPIRone HCl 10 MG TAB PO SCH ×2 (15:04→21:40)
[2020-09-12] MEDS: Gabapentin 300 MG CAP PO SCH ×2 (15:04→21:39)
[2020-09-12] MEDS: Sodium Chloride 0.9% 1,000 ML IV SCH ×2 (15:04→21:57)
[2020-09-12] MEDS: Allopurinol 300 MG TAB PO SCH (15:04)
[2020-09-12] MEDS: metFORMIN XR 500 MG TAB PO SCH ×2 (15:04→18:20)
[2020-09-12] MEDS: Polyethylene Glycol 3350 17 GM Packet PO SCH (15:05)
[2020-09-12] MEDS: Morphine 2 MG/ML VIAL SLOW IVP PRN ×2 (15:22→18:19)
[2020-09-12] MEDS: Clindamycin/D5W 900 MG in Premix Bag 1 BAG IVPB SCH ×2 (15:23→23:31)
--- NOTE | 2020-09-12 20:17 | OP ---
DATE OF PROCEDURE: 09/12/2020 BARREL ASSEMBLY INSPECTOR: Javier Farmer PA-C PREOPERATIVE INDICATION: Treat pain and prevent neurological deterioration. PREOPERATIVE DIAGNOSES: Prior lumbar fusion done elsewhere, prior laminectomy done here, recurrent intervertebral disk herniation, left L3-L4 with L3 and L4 radiculopathies, failure of spine instrumentation with fracture and loosening, pseudarthrosis after prior fusion, continued nicotine use, multiple falls. POSTOPERATIVE DIAGNOSES: Prior lumbar fusion done elsewhere, prior laminectomy done here, recurrent intervertebral disk herniation, left L3-L4 with L3 and L4 radiculopathies, failure of spine instrumentation with fracture and loosening, pseudarthrosis after prior fusion, continued nicotine use, multiple falls. PROCEDURES PERFORMED: 1. Reopening lumbar incision, repeat L3 and L4 laminectomy with right medial facetectomy and foraminotomy, right L3-L4 microdiskectomy, operating microscope. 2. Removal of fractured spinal pancho, right side. 3. Removal of loose left L4 pedicle screw, placement of new left L4 pedicle screw, placement of two new rods from L4 through S1, exploration of spinal fusion. 4. Posterolateral arthrodesis, L4-L5 and L5-S1. 5. Local morselized autograft, morselized allograft. PREOP MEDICATIONS: Levaquin 500 mg IV, clindamycin 900 mg IV. DRAIN NUMBER: Zero. DRAIN TYPE: None. DESCRIPTION OF PROCEDURE: The patient was brought to the operating room. General endotracheal anesthesia was induced. The patient was positioned prone on the Eliazar frame with appropriate padding for the chest and hips. A lateral fluoro radiograph helped to plan our incision. The lumbar skin was sterilely prepped and draped. We opened our previous incision and extended inferiorly in the midline. We controlled bleeding with bipolar and monopolar cautery. We used monopolar cautery to dissect through subcutaneous scar tissue to the thoracodorsal fascia. The fascia was incised in the midline and we reflected the paraspinal muscles and scar tissue off the spinous process of L4, L5, and S1 as well as the inferior portion of the spinous process of L2. We dissected laterally to the facet joints at L2-L3 and L3-L4 rather than down the midline and into the dura. A lateral fluoro radiograph confirmed the levels upon which we were operating. We then dissected out to the posterolateral recess from L4 through S1 and identified the screw and pancho instrumentation that had been left by another surgeon. The right spinal pancho was obviously fractured above the L5 pedicle screw. Revision of the fusion and instrumentation was left at the end of the case. Under the operating microscope and using microsurgical techniques, we carefully loosen scar tissue from the lateral aspect of the spinal canal. This was done from L2 through L4. We identified the L3 and L4 nerve roots and made sure the foraminotomies were done to ensure decompression. We then dissected down the right aspect of the thecal sac at L3-L4 to the L4 pedicle. There was a pars fracture on the right at L3-L4, which was known before and was not surprising. Using a foraminotomy, Veto, we widened the foramen there. We identified the intervertebral disk herniation in the ventral epidural space under the axilla of the L3 nerve root and extending all the way down to the shoulder the L4 nerve root. Multiple fragments of disk material were removed into the operating microscope. We swept medially and laterally and made sure that all loose fragments of disk had been removed. We then removed some posterior osteophytes at the interspace. There was very little interspace left suggesting future collapse was unlikely given that L3 was already touching L4. We ensured the L3 and L4 nerve roots were well decompressed at the completion of the diskectomy. We irrigated with bacitracin irrigation and turned our attention to the failure of fusion. Using a hex head screwdriver, we removed the caps over the previously placed rods. The fractured pancho was removed in its entirety. On the left side, the L4 pedicle screw was wobbling. We removed their L4 pedicle screw. This measured 7.5 x 45 mm. We chose 8.5 x 55 mm screw to replace it. We used a 7.5 mm tap and advanced the tap through the previous screw trajectory in 10 mm farther. Into the screw trajectory, we injected methylmethacrylate bone cement when it was wet. We drove the celebrity manager the pedicle screw tract and this 8.5 x 55 mm screw had good bone engagement. We then brought two new rods into the field. remaining intact pancho was a question, so we replaced it with new titanium rods. These rods were contoured to engage the caps of each of the screws. We replaced to engage the heads of each of the screws. We replaced five of the previous system caps and placed one new cap on our pedicle screw. We used a torque/counter-torque mechanism to ensure adequate tightness. We irrigated with bacitracin irrigation. We then used a high-speed drill to decorticate the transverse processes of L4, L5 and the sacral ala bilaterally. We decorticated the attempted fusion, but it was not solid. We decorticated some of the lamina and pars interarticularis at each level. Overall the decorticated bone, we left demineralized bone matrix and morselized autograft as our posterolateral fusion substrate. That autograft was obtained from our laminectomy bone, which was cleaned on the back table of all its soft tissue attachments morcellized and added into demineralized bone matrix as our fusion substrate. Radiographs confirmed that the new pedicle screw was adequately positioned. We treated the wound with vancomycin powder and we closed the wound in anatomical layers. This was a clean case, no contamination. Job ID: [id number]
[2020-09-12] MEDS: Atorvastatin Calcium 40 MG TAB PO SCH (21:38)
[2020-09-12] MEDS: Acetaminophen/Codeine 30-300mg Tablet PO PRN (21:39)
[2020-09-12] MEDS: tiZANidine HCl 4 MG TAB PO PRN (21:39)
[2020-09-13] MEDS: Acetaminophen/Codeine 30-300mg Tablet PO PRN ×4 (03:56→21:48)
[2020-09-13] MEDS: glipiZIDE 5 MG TAB PO SCH (06:14)
--- NOTE | 2020-09-13 07:29 | PRG ---
DATE OF SERVICE: 09/13/2020 I saw Loreto Lopez in her hospital room this morning. She is postop day 1 from her third lumbar spine surgery. We found an intervertebral disk herniation on the right at L3-L4. We found broken rods from another spine surgeon in [facility] on the right. We found a loose screw on the left. We replaced the broken instrumentation. We revised her fusion. We removed the disk. We decompressed the nerves. Her back is sore this morning. She has not been out of bed. The maximum temperature I see recorded is 98.9 degrees Fahrenheit, blood pressures have been in the 100s to 140s. Ms. Lopez can move her legs. It makes her back sore to do so. She has good sensation. Ms. Lopez needs aggressive mobilization with physical therapy. If she requires more pain medication, then a consult to acute Pain Management will be helpful to get her moving. Inpatient rehabilitation is an option. If she is independent for activities of daily living, she can go home and do physical therapy as an outpatient. Job ID: [id number]
[2020-09-13] MEDS: Gabapentin 300 MG CAP PO SCH ×2 (08:43→21:47)
[2020-09-13] MEDS: metFORMIN XR 500 MG TAB PO SCH ×2 (08:44→17:39)
[2020-09-13] MEDS: DULoxetine 60 MG CAP PO SCH (08:44)
[2020-09-13] MEDS: Allopurinol 300 MG TAB PO SCH (08:44)
[2020-09-13] MEDS: Polyethylene Glycol 3350 17 GM Packet PO SCH (08:44)
[2020-09-13] MEDS: busPIRone HCl 10 MG TAB PO SCH ×2 (08:44→21:47)
[2020-09-13] MEDS: Sodium Chloride 0.9% 1,000 ML IV SCH (10:00)
[2020-09-13] MEDS: Atorvastatin Calcium 40 MG TAB PO SCH (21:47)
[2020-09-13] MEDS: tiZANidine HCl 4 MG TAB PO PRN (23:26)
[2020-09-14] MEDS: Sodium Chloride 0.9% 1,000 ML IV SCH ×2 (00:22→13:05)
[2020-09-14] MEDS: Acetaminophen/Codeine 30-300mg Tablet PO PRN ×2 (04:24→10:20)
[2020-09-14] MEDS: Morphine 2 MG/ML VIAL SLOW IVP PRN (05:28)
[2020-09-14] MEDS: tiZANidine HCl 4 MG TAB PO PRN ×2 (06:32→21:11)
[2020-09-14] MEDS: glipiZIDE 5 MG TAB PO SCH (06:32)
--- NOTE | 2020-09-14 07:13 | PRG ---
DATE OF SERVICE: 09/14/2020 Ms. Lopez is 2 days out from revision of her fusion instrumentation as well as laminectomy and diskectomy above the levels of her prior surgery. Pain has been limiting Ms. Lopez mostly to reclining in bed. She is attempting to work with physical therapy. She still has a catheter in place. No events reported from overnight. Among the electronically recorded vital signs, I do not see any fevers in the last 24 hours. Heart rates have been up from [id number] in the one-teens. Current pulse is 86. Blood pressures have been in the 90s to 130s. I do not find any new neurological deficits in the lower extremities. Ms. Lopez is slow to mobilize. Once she is getting out of bed a little bit easier, then we can get the catheter out. I will ask the Medical Service to visit in regard to her COPD, her diabetes, hypertension, and other medical issues to make sure we are doing the best we can on that front. An inpatient rehabilitation bed would be worthwhile. We will try to arrange that transfer for tomorrow or even as early as this afternoon. Job ID: [id number] [facility]
[2020-09-14] MEDS: Gabapentin 300 MG CAP PO SCH ×2 (08:51→21:11)
[2020-09-14] MEDS: metFORMIN XR 500 MG TAB PO SCH ×2 (08:51→18:27)
[2020-09-14] MEDS: DULoxetine 60 MG CAP PO SCH (08:51)
[2020-09-14] MEDS: busPIRone HCl 10 MG TAB PO SCH ×2 (08:53→21:11)
[2020-09-14] MEDS: Allopurinol 300 MG TAB PO SCH (08:53)
[2020-09-14] MEDS: Polyethylene Glycol 3350 17 GM Packet PO SCH (08:53)
--- NOTE | 2020-09-14 17:32 | RAD ---
PORTABLE CHEST: 09/14/20 PROVIDED CLINICAL HISTORY: Fever. FINDINGS: Comparison 03/25/19. The cardiac silhouette appears enlarged, which may be at least partially on the basis of portable [place]. There are areas of multifocal interstitial prominence. There is no focal consolidation, pleural fluid or pneumothorax apparent. IMPRESSION: Nonspecific patchy prominence of the pulmonary interstitium. Correlate with concerns for COVID pneumo jeffry. POS: [facility]
--- NOTE | 2020-09-14 18:39 | ULT ---
BILATERAL LOWER EXTREMITY VENOUS DOPPLER: 09/14/20 HISTORY: Pain and edema with fever. COMPARISON: None. FINDINGS: Real time velez scale, color and spectral analysis of the bilateral lower extremity venous system was performed. The common femoral, femoral, proximal portions of the greater saphenous and deep femoral v ein as well as popliteal and posterior tibial veins are interrogated. Normal flow, augmentation, and compression. IMPRESSION: No deep venous thrombosis. POS: HOME
[2020-09-14 19:00] LABS: SARS-CoV-2 NAA Rapid Test Not Detected (NotDetected)
[2020-09-14 19:24] LABS: Anion Gap 14 mmol/L (10-20); BUN (Urea Nitrogen) 26 mg/dL (9.8-20.1); Calc. Creatinine Clearance 93 mL/min (70-130); Calcium 9.2 mg/dL (7.8-10.44); Carbon Dioxide 23 mmol/L (23-31); Chloride 100 mmol/L (98-107); Glucose 92 mg/dL (80-115); Potassium 4.7 mmol/L (3.5-5.1); Sodium 132 mmol/L (136-145)
[2020-09-14 19:32] LABS: Band 9 % (5-11); Hemoglobin 8.6 g/dL (12.0-16.0); Lymphocytes 4 % (21-51); MDiff Complete? YES; Mean Corpuscular Hemoglobin 27.6 pg (27.0-31.0); Mean Corpuscular Volume 86.4 fL (78.0-98.0); Mean Platelet Volume 8.3 fL (7.4-10.4); Monocytes 12 % (0-10); Neutrophil 74 % (42-75); Platelet Count 217 thou/uL (130-400); Platelet Morphology Comment Appears Adequate; RBC Distribution Width 15.1 % (11.5-14.5); RBC Morphology Normal; Reactive Lymphocytes 1 % (0-10); White Blood Cell (WBC) Count 10.2 thou/uL (4.8-10.8)
[2020-09-14] MEDS ORDERED: Labetalol HCl 100 MG/20 ML VIAL SLOW IVP PRN ×2 (19:41→21:44)
[2020-09-14 20:26] LABS: RBC/HPF 0-3 HPF (0-3); Squamous Epithelial 0-3 HPF (0-3)
[2020-09-14 20:27] LABS: Bacteria/HPF Rare-Few HPF (None Seen)
[2020-09-14] MEDS: Sulfameth/Trimethoprim DS 800-160mg TAB PO SCH (21:11)
[2020-09-14] MEDS: Atorvastatin Calcium 40 MG TAB PO SCH (21:12)
[2020-09-14] MEDS ORDERED: Furosemide 20 MG/2 ML VIAL SLOW IVP SCH (21:15)
[2020-09-14] MEDS ORDERED: Albuterol 200 PUFF (6.7GM INHALER) INH PRN (21:15)
--- NOTE | 2020-09-14 21:19 | PDOC.HHP ---
Hospitalist HPI Shortness of breath History of Present Illness: Hospitalist Consultation Requesting physician: Dr Moon Reason for consult: Shortness of breath HPI Patient is a 64 year old female with PMH HTN, GERD, HLD, depresison, anxiety, arthitis, COPD, DM who is admitted to neurosurgery service for disk disorder and radicopathy of lumbar region s/p laminectomy/diskectomy 09/12/20, today patient developed some shortness of breath earlier this afternoon, nurse reports she was febrile to 101.9, sweating and clammy, tachycardic to 110s, required 4L O2 to maintain sats, symptoms improved after a few hours on their own, CXR w/ patchy infilatrates concerning for COVID, but COVID rapid swab negative. IM consulted for further management and care. She has diabetes on metformin and glipizide, sugars have been in 100-150 range. She has history of HTN but BPs controlled off of medications. Has history of COPD, no wheezing or prolonged breathing reported. Allergies/Adverse Reactions: Allergy/AdvReac Type Severity Reaction Status Date / Time Penicillins Allergy Severe very Verified 09/08/20 13:18 flushed Home Medications: Medication Instructions Recorded Confirmed Type Atorvastatin Calcium 40 mg PO HS 02/05/17 09/08/20 History Pantoprazole [Protonix] 40 mg PO QAM 02/05/17 09/08/20 History Allopurinol [Zyloprim] 300 mg PO DAILY 11/17/18 09/08/20 History Aspirin [Ecotrin Low Strength] 81 mg PO DAILY 11/17/18 09/08/20 History busPIRone HCl [Buspirone HCl] 10 mg PO BID 11/17/18 09/08/20 History metFORMIN XR [Glucophage XR] 500 mg PO BID-WM 11/17/18 09/08/20 History Acetaminophen [Tylenol Arthritis] 2 tab PO Q6HR PRN 02/09/19 09/08/20 History Gabapentin 600 mg PO BID 03/26/19 09/08/20 History hydrOXYzine HCl [hydrOZYzine HCl] 25 mg PO BID PRN 04/12/19 09/08/20 History DULoxetine [Cymbalta] 60 mg PO DAILY 08/02/20 09/08/20 History Fluticasone Propionate [Flonase 1 spray EA NARE DAILY PRN 08/02/20 09/08/20 History Nasal Brillion] Lisinopril/Hydrochlorothiazide 1 tablet PO DAILY 08/02/20 09/08/20 History [Lisinopril-Hctz 10-12.5 mg Tab] Zolpidem Tartrate [Ambien] 10 mg PO HS PRN 08/02/20 09/08/20 History glipiZIDE [Glipizide] 5 mg PO DAILY 08/02/20 09/08/20 History tiZANidine HCl [Tizanidine HCl] 4 mg PO TID PRN 08/02/20 09/08/20 History Mirabegron [Myrbetriq ER] 25 mg PO DAILY 08/07/20 09/08/20 History Albuterol Sulfate [Proair HFA] 2 puff INH Q4HR PRN 09/08/20 09/08/20 History Polyethylene Glycol 3350 [Miralax] 17 gm PO DAILY 09/08/20 09/08/20 History Past History: PMHx: HTN, GERD, HLD, depresison, anxiety, arthitis, COPD, DM PSHx: knee replacement, shoulder surgery, lumbar fusion, laminectomy FHx: reviewed and noncontributory Social: former smoker, no alcohol or drug use Hospitalist HPI ROS Constitutional: reports: fever, chills, sweats, weakness, malaise Eyes: denies: pain, vision change, conjunctivae inflammation, eyelid inflammation, redness, other ENT: denies: ear pain, ear discharge, nose pain, nose discharge, nose congestion, mouth pain, mouth swelling, throat pain, throat swelling, other Respiratory: reports: shortness of breath. denies: cough, dry, hemoptysis, SOB with excertion, pleuritic pain, sputum, wheezing, other Cardiovascular: denies: chest pain, palpitations, orthopnea, paroxysmal noc. dyspnea, edema, light headedness, other Gastrointestinal: denies: nausea, vomiting, abdominal pain, diarrhea, constipation, melena, hematochezia, other Genitourinary: denies: dysuria, frequency, incontinence, hematuria, retention, other Musculoskeletal: denies: neck pain, shoulder pain, arm pain, back pain, hand pain, leg pain, foot pain, other Skin: denies: rash, lesions, ernie, bruising, other Neurological: denies: weakness, numbness, incoordination, change in speech, confusion, seizures, other All other systems reviewed; all pertinent +/- noted in HPI/Subj Hospitalist Exam Vitals: Vital Signs (12 hours) Temp Pulse Resp BP BP Pulse Ox 09/14/20 19:45 100.3 F H 116 H 18 120/76 96 09/14/20 17:00 94 L 09/14/20 16:00 101.9 F H 113 H 20 142/78 H 94 L 09/14/20 12:00 109/66 09/14/20 11:48 98.5 F 96 20 92/54 L 95 Weight Weight 250 lb General Appearance: NAD, awake alert Eye: PERRL, anicteric sclera ENT: normocephalic atraumatic, no oropharyngeal lesions, moist mucosa Neck: supple, symmetric, no JVD, no thyromegaly, no lymphadenopathy, no carotid bruit Heart: RRR, no murmur, no gallops, no rubs, normal peripheral pulses Respiratory: CTAB, no wheezes, no ronchi, normal chest expansion, no tachypnea, normal percussion Respiratory - other findings: bibasilar rales Gastrointestinal: soft, non-tender, non-distended, normal bowel sounds, no palpable masses, no hepatomegaly, no splenomegaly, no bruit Extremities: no cyanosis, no clubbing, no edema Skin: normal turgor, no lesions, no rashes Neurological: cranial nerve grossly intact, normal sensation to touch, no weakness, no focal deficits, no new deficit Musculoskeletal: normal tone, normal strength, no muscle wasting Psychiatric: normal affect, normal behavior, A&O x 3 Hospitalist Results Result Diagrams: 09/14/20 18:48 09/14/20 18:48 Lab results: Laboratory Last Values WBC 10.2 thou/uL (4.8-10.8) 09/14/20 18:48 RBC 3.10 mill/uL (4.20-5.40) L 09/14/20 18:48 Hgb 8.6 g/dL (12.0-16.0) L 09/14/20 18:48 Hct 26.8 % (36.0-47.0) L 09/14/20 18:48 MCV 86.4 fL (78.0-98.0) 09/14/20 18:48 MCH 27.6 pg (27.0-31.0) 09/14/20 18:48 MCHC 32.0 g/dL (32.0-36.0) 09/14/20 18:48 RDW 15.1 % (11.5-14.5) H 09/14/20 18:48 Plt Count 217 thou/uL (130-400) 09/14/20 18:48 MPV 8.3 fL (7.4-10.4) 09/14/20 18:48 Neutrophils % 70.1 % (42.0-75.0) 09/12/20 06:14 Neutrophils % (Manual) 74 % (42-75) 09/14/20 18:48 Band Neuts % (Manual) 9 % (5-11) 09/14/20 18:48 Lymphocytes % 23.1 % (21.0-51.0) 09/12/20 06:14 Lymphocytes % (Manual) 4 % (21-51) L 09/14/20 18:48 Reactive Lymphs % 1 % (0-10) 09/14/20 18:48 Monocytes % 6.0 % (0.0-10.0) 09/12/20 06:14 Monocytes % (Manual) 12 % (0-10) H 09/14/20 18:48 Eosinophils % 0.4 % (0.0-10.0) 09/12/20 06:14 Basophils % 0.5 % (0.0-1.0) 09/12/20 06:14 Neutrophils # 5.4 thou/uL (1.40-6.50) 09/12/20 06:14 Lymphocytes # 1.8 thou/uL (1.20-3.40) 09/12/20 06:14 Monocytes # 0.5 thou/uL (0.11-0.59) 09/12/20 06:14 Eosinophils # 0.0 thou/uL (0.0-0.7) 09/12/20 06:14 Basophils # 0.0 thou/uL (0.0-0.2) 09/12/20 06:14 Plt Morphology Comment Appears Adequate 09/14/20 18:48 RBC Morph Comment Normal 09/14/20 18:48 PT 12.6 sec (12.0-14.7) 09/12/20 06:14 INR 0.9 09/12/20 06:14 APTT 33.6 sec (22.9-36.1) 09/12/20 06:14 Sodium 132 mmol/L (136-145) L 09/14/20 18:48 Potassium 4.7 mmol/L (3.5-5.1) 09/14/20 18:48 Chloride 100 mmol/L (98-107) 09/14/20 18:48 Carbon Dioxide 23 mmol/L (23-31) 09/14/20 18:48 Anion Gap 14 mmol/L (10-20) 09/14/20 18:48 BUN 26 mg/dL (9.8-20.1) H 09/14/20 18:48 Creatinine 1.07 mg/dL (0.6-1.1) 09/14/20 18:48 Estimated GFR (MDRD) 51 09/14/20 18:48 Glucose 92 mg/dL (80-115) 09/14/20 18:48 POC Glucose 100 mg/dL (70-100) 09/14/20 17:32 Calcium 9.2 mg/dL (7.8-10.44) 09/14/20 18:48 Urine RBC 0-3 HPF (0-3) 09/14/20 18:40 Urine WBC 7-10 HPF (0-3) A 09/14/20 18:40 Ur Squamous Epith Cells 0-3 HPF (0-3) 09/14/20 18:40 Urine Bacteria Rare-Few HPF (None Seen) 09/14/20 18:40 SARS-CoV-2 Rap RNA(RT-PCR) Not Detected (NotDetected) 09/14/20 17:50 Additional comment: labs, cxr, imaging reports, hospital notes reviewed Hospitalist H&P A/P Plan: Patient is a 64 year old female with PMH HTN, GERD, HLD, depresison, anxiety, arthitis, COPD, DM who is admitted to neurosurgery service for disk disorder and radicopathy of lumbar region s/p laminectomy/diskectomy 09/12/20, IM consulted for the following: # fever, tachycardia, abnormal chest imaging, hypoxia # community acquired pneumonia - concerning for COVID, negative test but will send confirmatory negative test and keep on precautions for now # COPD - does not appear to be in exacerbation - start empiric azithromycin/ceftriaxone - consider steroids if hypoxia worsens - COVID precautions, confirmatory test - stop IVF, lasix x 1 dose # DM - controlled, will add SSI for more frequent checking # HTN - controlled, add PRN medications, continue metformin and glipizide # hyponatremia - mild, no neurologic issues thank you for the consult, hospitalist service will continue to follow daily, please call with any questions or concerns DVT/GI ppx - per primary team
[2020-09-14] MEDS ORDERED: Dextrose 5% in Water 1,000 ML IV PRN (21:44)
[2020-09-14] MEDS ORDERED: Dextrose 50% Abboject 50 ML SYRINGE SLOW IVP PRN (21:44)
[2020-09-14] MEDS ORDERED: hydrALAZINE 20 MG/ML VIAL SLOW IVP PRN (21:44)
[2020-09-14] MEDS ORDERED: HumaLOG 300 UNITS/3 ML VIAL SC PRN (21:44)
[2020-09-14] MEDS ORDERED: Dexamethasone 4 mg/ml Vial SLOW IVP SCH (22:00)
[2020-09-14] MEDS: cefTRIAXone\\ROCEPHIN 1 GM in Sodium Chloride 0.9% 100 ML IVPB SCH (22:20)
[2020-09-14] MEDS: Azithromycin 500 MG in Sodium Chloride 0.9% 250 ML 250 ML IVPB SCH (23:25)
[2020-09-15] MEDS: tiZANidine HCl 4 MG TAB PO PRN (05:13)
[2020-09-15] MEDS: glipiZIDE 5 MG TAB PO SCH (06:33)
--- NOTE | 2020-09-15 07:07 | PRG ---
DATE OF SERVICE: 09/15/2020 I saw Loreto Lopez on rounds this morning. She is resting in her bed. She tells me she did not get up and out of bed with physical therapy yesterday although she made an attempt to do so. Last night the nurses called that she was a bit confused. We checked the urine for UTI and there was some bacteria. Sodium was low at 132. She does not drink alcohol at home. We held her narcotics until her confusion cleared. Last night, a maximum temperature of 101.9 degrees Fahrenheit was recorded. Blood pressures have been in the 100s to 120s. When her fever is up, she is tachycardic. On examination, Ms. Lopez moves her lower extremities well. She has sensation all the way to her feet. Her back is sore. We will make another attempt today to stand with physical therapy. She needs to be making progress to be accepted to inpatient rehabilitation. The goal of this hospitalization is to get her to rehab, so she becomes more independent. She is going to need some assistance and greater effort to do so. In the meantime, we are very appreciative of the help with inpatient hospitalist service to assist with her diabetes, her COPD, her hyponatremia, her mild UTI, and delirium. Job ID: [id number] [facility]
[2020-09-15] MEDS: DULoxetine 60 MG CAP PO SCH (08:37)
[2020-09-15] MEDS: Gabapentin 300 MG CAP PO SCH ×2 (08:37→20:00)
[2020-09-15] MEDS: Polyethylene Glycol 3350 17 GM Packet PO SCH (08:37)
[2020-09-15] MEDS: metFORMIN XR 500 MG TAB PO SCH ×2 (08:37→17:24)
[2020-09-15] MEDS: Allopurinol 300 MG TAB PO SCH (08:38)
[2020-09-15] MEDS: busPIRone HCl 10 MG TAB PO SCH ×2 (08:38→20:00)
[2020-09-15] MEDS: Sulfameth/Trimethoprim DS 800-160mg TAB PO SCH ×2 (08:38→20:00)
--- NOTE | 2020-09-15 14:37 | PDOC.HOSPP ---
- Subjective Encounter Date: 09/15/20 Encounter Time: 14:35 Subjective: Ms. Lopez was seen today in follow-up post lumbar surgery. She notes some back pain, but says her back hurts all the time. She denies feeling short of breath. she denies chest pain. - Objective Vital Signs & Weight: Vital Signs (12 hours) Temp Pulse Resp BP Pulse Ox 09/15/20 11:05 98.6 F 91 16 119/63 91 L 09/15/20 08:10 98.6 F 100 18 116/79 95 09/15/20 03:35 98.1 F 94 18 114/73 97 Weight Weight 250 lb I&O: 09/14/20 09/15/20 09/16/20 06:59 06:59 06:59 Intake Total 2332 2600 Output Total 1550 6165 Balance 782 -1025 Result Diagrams: 09/14/20 18:48 09/14/20 18:48 Additional Labs: Accuchecks 09/15/20 09/15/20 09/14/20 10:59 05:47 22:09 POC Glucose 124 H 79 98 09/14/20 17:32 POC Glucose 100 Hospitalist ROS - Medication Medications: Active Medications Generic Name Dose Route Start Last Admin Trade Name Freq PRN Reason Stop Dose Admin Acetaminophen 1,300 mg 09/12/20 07:21 09/14/20 18:27 Acetaminophen Er (8hr) 650 Mg Tab PO 1,300 mg Q8H PRN Administration Mild Pain (1-3) Acetaminophen/Codeine Phosphate 1 tab 09/12/20 07:06 09/14/20 10:20 Acetaminophen/Codeine 30-300mg Tablet PO 1 tab Q3H PRN Administration Mild Pain (1-3) Allopurinol 300 mg 09/12/20 09:00 09/15/20 08:38 Allopurinol 300 Mg Tab PO 300 mg DAILY DAVIDE Administration Atorvastatin Calcium 40 mg 09/12/20 21:00 09/14/20 21:12 Atorvastatin Calcium 40 Mg Tab PO 40 mg HS DAVIDE Administration Buspirone HCl 10 mg 09/12/20 09:00 09/15/20 08:38 Buspirone Hcl 10 Mg Tab PO 10 mg BID DAVIDE Administration Duloxetine HCl 60 mg 09/13/20 09:00 09/15/20 08:37 Duloxetine 60 Mg Cap PO 60 mg DAILY DAVIDE Administration Gabapentin 600 mg 09/12/20 09:00 09/15/20 08:37 Gabapentin 300 Mg Cap PO 600 mg BID DAVIDE Administration Glipizide 5 mg 09/13/20 07:30 09/15/20 06:33 Glipizide 5 Mg Tab PO 5 mg DAILY-AC DAVIDE Administration Azithromycin 500 mg/ Sodium 250 mls @ 250 mls/hr 09/14/20 23:00 09/14/20 23:25 Chloride IVPB 250 mls 2300 DAVIDE Administration Ceftriaxone Sodium 1 gm/ 100 mls @ 200 mls/hr 09/14/20 22:00 09/14/20 22:20 Sodium Chloride IVPB 100 mls 2200 DAVIDE Administration Metformin HCl 500 mg 09/12/20 08:00 09/15/20 08:37 Metformin Xr 500 Mg Tab PO 500 mg BID-WM DAVIDE Administration Mirabegron 25 mg 09/12/20 09:00 09/14/20 09:00 Mirabegron Er 25 Mg Tab PO Not Given DAILY DAVIDE Morphine Sulfate 2 mg 09/12/20 07:06 09/14/20 05:28 Morphine 2 Mg/Ml Vial SLOW IVP 2 mg Q1H PRN Administration Moderate Breakthrough Pain Pantoprazole Sodium 40 mg 09/12/20 09:00 09/15/20 08:37 Pantoprazole 40 Mg Tab PO 40 mg QAM DAVIDE Administration Polyethylene Glycol 17 gm 09/12/20 09:00 09/15/20 08:37 Polyethylene Glycol 3350 17 Gm Packet PO 17 gm DAILY DAVIDE Administration Promethazine HCl 12.5 mg 09/12/20 07:06 09/14/20 23:50 Promethazine Hcl 25 Mg/Ml Vial IM 12.5 mg Q4H PRN Administration Nausea/Vomiting Tizanidine HCl 4 mg 09/12/20 07:33 09/15/20 05:13 Tizanidine Hcl 4 Mg Tab PO 4 mg TID PRN Administration Muscle Pain Trimethoprim/Sulfamethoxazole 1 tab 09/14/20 21:00 09/15/20 08:38 Sulfameth/Trimethoprim Ds 800-160mg Tab PO 09/19/20 09:01 1 tab BID DAVIDE Administration Hospitalist Exam Vitals: Vital Signs (12 hours) Temp Pulse Resp BP Pulse Ox 09/15/20 11:05 98.6 F 91 16 119/63 91 L 09/15/20 08:10 98.6 F 100 18 116/79 95 09/15/20 03:35 98.1 F 94 18 114/73 97 Weight Weight 250 lb Eye: PERRL, anicteric sclera Heart: RRR, no murmur, no gallops, no rubs, normal peripheral pulses Respiratory: no wheezes, no rales, rhonchi Gastrointestinal: soft, non-tender, non-distended, normal bowel sounds, no palpable masses, no hepatomegaly Extremities: no cyanosis (pulses are a bit diminished bilaterally, especially on the right, feet are warm and dry, no lesions), 1+ LE edema Hosp A/P (1) COPD exacerbation Code(s): J44.1 - CHRONIC OBSTRUCTIVE PULMONARY DISEASE W (ACUTE) EXACERBATION Status: Acute (2) DM2 (diabetes mellitus, type 2) Status: Chronic (3) Gout Code(s): M10.9 - GOUT, UNSPECIFIED Status: Chronic (4) HTN (hypertension) Code(s): I10 - ESSENTIAL (PRIMARY) HYPERTENSION Status: Chronic - Plan * Patient is s/p lumabr spine surgery- removal of loose pedicle screw and fractured pancho. * AYSHA- I have asked the patient to either have her CPAP machine brought to the hospital or inform the staff of her settings- She should have CPAP or BiPAP at night * Mild encephalopathy- suspect due to poorly controlled sleep apnea, and sedating medications- will discontinue Phenergan and Tizanidine * A repeat COVID screen has been done * HTN- Blood pressure is stable * DM- blood glucose is controlled * Gout- continue Allopurinol
[2020-09-15] MEDS ORDERED: Albuterol 200 PUFF (6.7GM INHALER) INH PRN (16:15)
[2020-09-15 18:55] LABS: SARS-CoV-2 IgG Ab Non-Reactive (NonReactive); SARS-CoV-2 IgG Index 0.01 S/CO (< 1.40)
[2020-09-15] MEDS: Atorvastatin Calcium 40 MG TAB PO SCH (20:00)
[2020-09-15] MEDS: cefTRIAXone\\ROCEPHIN 1 GM in Sodium Chloride 0.9% 100 ML IVPB SCH (21:54)
[2020-09-15] MEDS: Azithromycin 500 MG in Sodium Chloride 0.9% 250 ML 250 ML IVPB SCH (22:02)
[2020-09-16] MEDS: glipiZIDE 5 MG TAB PO SCH (06:59)
[2020-09-16] MEDS: metFORMIN XR 500 MG TAB PO SCH (08:36)
[2020-09-16] MEDS: Gabapentin 300 MG CAP PO SCH (08:39)
[2020-09-16] MEDS: DULoxetine 60 MG CAP PO SCH (08:40)
[2020-09-16] MEDS: Allopurinol 300 MG TAB PO SCH (08:40)
[2020-09-16] MEDS: busPIRone HCl 10 MG TAB PO SCH (08:40)
[2020-09-16] MEDS: Polyethylene Glycol 3350 17 GM Packet PO SCH (08:40)
[2020-09-16] MEDS: Sulfameth/Trimethoprim DS 800-160mg TAB PO SCH (08:40)
--- NOTE | 2020-09-16 09:44 | PRG ---
DATE OF SERVICE: 09/16/2020 SUBJECTIVE: The patient is now 4 days postop status post revision of her L3-L4 lumbar fusion. She reports her pain has improved significantly, and she is starting to mobilize more. She walked yesterday in the hallways. She continues to have a Samson catheter. Initial plan was to transition to a swing bed in [place]. However, she feels that she might be ready to go home instead. OBJECTIVE: On exam, she is sitting up comfortably. She is in no acute distress. She has free active range of motion of all extremities. No focal motor weakness. The Samson remains in place. ASSESSMENT AND PLAN: We will go ahead and get the Samson out and see if she is able to urinate on her own. We will mobilize her again in the hallways, and if she does well, we may choose to send her home in care of her family. Job ID: [id number]
[2020-09-16 10:56] VITALS: BP 129/63; TEMP 98.3
--- NOTE | 2020-09-16 15:57 | PDOC.HOSPP ---
- Subjective Encounter Date: 09/16/20 Encounter Time: 15:55 Subjective: Patient seen and evaluated. This is a 64-year-old who was admitted by orthopedic services and she underwent lumbar surgery. Medicine service were consulted for further help. The patient seems to be doing reasonably well. She denied any shortness of breath, no cough no chest pain. There was some concerns about pneumonia but looking through the x-ray it does not appear that she actually had pneumonia. She can discharge whenever the primary admitting service was ready for her. Medicine service will sign off. - Objective Vital Signs & Weight: Vital Signs (12 hours) Temp Pulse Resp BP BP Pulse Ox 09/16/20 12:25 97 09/16/20 10:55 98.3 F 103 H 16 129/63 97 09/16/20 08:14 98.4 F 105 H 18 130/83 93 L 09/16/20 04:00 97.9 F 103 H 20 138/75 94 L Weight Weight 250 lb I&O: 09/15/20 09/16/20 09/17/20 06:59 06:59 06:59 Intake Total 2600 1500 540 Output Total 3625 1250 250 Balance -1025 250 290 Result Diagrams: 09/14/20 18:48 09/14/20 18:48 Additional Labs: Accuchecks 09/16/20 10:54 POC Glucose 76 Radiology Reviewed by me: Yes EKG Reviewed by me: Yes Hospitalist Exam Vitals: Vital Signs (12 hours) Temp Pulse Resp BP BP Pulse Ox 09/16/20 12:25 97 09/16/20 10:55 98.3 F 103 H 16 129/63 97 09/16/20 08:14 98.4 F 105 H 18 130/83 93 L 09/16/20 04:00 97.9 F 103 H 20 138/75 94 L Weight Weight 250 lb General Appearance: NAD, awake alert Eye: PERRL, anicteric sclera ENT: normocephalic atraumatic, no oropharyngeal lesions Neck: supple, symmetric, no JVD, no thyromegaly Heart: RRR, no murmur, no gallops, no rubs, normal peripheral pulses Respiratory: CTAB, no wheezes, no rales, no ronchi Gastrointestinal: soft, non-tender, non-distended, normal bowel sounds Neurological: cranial nerve grossly intact, normal sensation to touch Psychiatric: normal affect, normal behavior Hosp A/P (1) COPD exacerbation Code(s): J44.1 - CHRONIC OBSTRUCTIVE PULMONARY DISEASE W (ACUTE) EXACERBATION Status: Acute (2) DM2 (diabetes mellitus, type 2) Status: Chronic (3) HTN (hypertension) Code(s): I10 - ESSENTIAL (PRIMARY) HYPERTENSION Status: Chronic (4) Tobacco use Code(s): Z72.0 - TOBACCO USE Status: Chronic - Plan old records reviewed/req, plan discussed w/ family, PT/OT
--- NOTE | 2020-09-17 11:40 | DIS ---
DATE OF ADMISSION: 09/14/2020 DATE OF DISCHARGE: 09/16/2020 HOSPITAL COURSE: Ms. Lopez is a 64-year-old female with a past medical history of diabetes, COPD, in which we consulted Hospitalist to help manage. She underwent a revision of L3-L4 lumbar fusion. Following the surgery, she was transitioned to the Med/Surg floor, where her pain was well controlled with p.o. medications. She is tolerating a regular diet, but was not voiding appropriately, so a Samson had to be placed. She was having difficulty ambulating with physical therapy. Once they got her moving around, she did much better. She is currently awaiting inpatient rehab, and once approved by insurance, she will be discharged. On exam today, she is awake, alert, in no acute distress. She has free active range of motion of all her extremities. No focal motor weakness. No reflex asymmetry. Her incision is clean, dry, and intact. When she is approved by her insurance, she will be discharged to inpatient rehab. I have discussed home care precautions with her. CONDITION ON DISCHARGE: The patient had no emergencies. Condition was stable for discharge. MEDICATIONS: Home going medications were reviewed. FOLLOWUP: Followup arrangements made by our therapy site coordinator in the clinic and call to the patient. ACTIVITIES: Restrictions were reviewed in person. Wound care showers are acceptable. The patient should pat the incision dry, but not submerge it under the surface of the body of water for 1 month. Job ID: [id number]
--- NOTE | 2020-09-20 15:17 | EKG ---
Test Reason : Blood Pressure : / mmHG Vent. Rate : 119 BPM Atrial Rate : 119 BPM P-R Int : 168 ms QRS Dur : 084 ms QT Int : 284 ms P-R-T Axes : 055 049 050 degrees QTc Int : 399 ms Poor data quality, interpretation may be adversely affected Sinus tachycardia Otherwise normal ECG No previous ECGs available Confirmed by SHAVON CHOI (2) on 09/20/2020 3:17:17 PM Referred By: Confirmed By:SHAVON CHOI
--- NOTE | 2020-09-29 06:57 | PQF ---
Dear : Javier Farmer Date 09/29/2020 Please exercise your independent, professional judgment in responding to the clarification form. Clinical indicators are provided on the bottom of this form for your review Can you please further clarify the specificity of encephalopathy? Please check appropriate box(es): [ ] Metabolic Encephalopathy [ ] Drug induced Encephalopathy [ ] Toxic Encephalopathy [ ] Other diagnosis please specify [ ] Unable to determine [x] Where in the history does it state patient was diagnosed with encephalopathy Physician Signature: Date/Time: For continuity of documentation, please document condition throughout progress notes and discharge summary. Thank You. To be completed by CDI/Coding staff for physician review: Present Clinical Indicators - Signs / Symptoms / Labs Results and Location in Medical Record [ x ] Delirium PN 2 pg.1 [ x ] She was a bit confused PN 2 pg.1 [ x ] Mild encephalopathy- suspect due to poorly controlled sleep apnea and sedating medications Hospitalist PN 09/15 pg.5 Present Risk Factors Results and Location in Medical Record [ x ] 64 years old H and P pg.1 [ x ] HTN H and P pg.1 [ x ] Anxiety H and P pg.1 [ x ] DM H and P pg.1 [ x ] hyponatremia PN 2 pg.1 Present Treatments Results and Location in Medical Record [ x ] IV Fluids MAR [ x ] Held narcotics PN 2 pg.1 [ x ] Discontinue Phenergan and Tizanidine Hospitalist PN 09/15 pg.5 [ x ] Vancomycin 1gm IV MAR [ x ] Clindamycin 90mg IV MAR [ x ] Rocephin 1gm IV MAR Ermias Rosales Phone #: ext [phone] Date 09/29/2020 This is a permanent part of the Medical Record [facility]
== END 2020-09-16 14:00 | disposition home or self-care (01) | DRG 460 ==
LOC: SDC 05:58 → SJJU 12:55 → SDC 09-14 08:34 → SJJU 09-14 08:35
PROVIDERS: ADMIT Neurological Surgery; ATTEND Hospitalist
PROC: 01NB0ZZ Release Lumbar Nerve, Open Approach (ICD-10-PCS; principal; 2020-09-12)
PROC: 0SB20ZZ Excision of Lumbar Vertebral Disc, Open Approach (ICD-10-PCS; 2020-09-12)
PROC: 0SG3071 Fusion of Lumbosacral Joint with Autologous Tissue Substitute, Posterior Approach, Posterior Column, Open Approach (ICD-10-PCS; 2020-09-12)
PROC: 0SP004Z Removal of Internal Fixation Device from Lumbar Vertebral Joint, Open Approach (ICD-10-PCS; 2020-09-12)
DX: T84.216A Breakdown (mechanical) of internal fixation device of vertebrae, initial encounter (principal); G93.40 Encephalopathy, unspecified; E87.1 Hypo-osmolality and hyponatremia; N39.0 Urinary tract infection, site not specified; J44.1 Chronic obstructive pulmonary disease with (acute) exacerbation; M96.0 Pseudarthrosis after fusion or arthrodesis; T84.226A Displacement of internal fixation device of vertebrae, initial encounter; M51.16 Intervertebral disc disorders with radiculopathy, lumbar region; Z20.822 Contact with and (suspected) exposure to COVID-19; M48.062 Spinal stenosis, lumbar region with neurogenic claudication; I10 Essential (primary) hypertension; K21.9 Gastro-esophageal reflux disease without esophagitis; E78.00 Pure hypercholesterolemia, unspecified; F32.9 Major depressive disorder, single episode, unspecified; F41.9 Anxiety disorder, unspecified; M19.90 Unspecified osteoarthritis, unspecified site; M10.9 Gout, unspecified; M25.78 Osteophyte, vertebrae; E11.9 Type 2 diabetes mellitus without complications; Z79.82 Long term (current) use of aspirin; Z79.84 Long term (current) use of oral hypoglycemic drugs; Z79.899 Other long term (current) drug therapy; Z88.0 Allergy status to penicillin; Z98.1 Arthrodesis status; Z79.51 Long term (current) use of inhaled steroids; G47.33 Obstructive sleep apnea (adult) (pediatric); F17.210 Nicotine dependence, cigarettes, uncomplicated; Y83.8 Other surgical procedures as the cause of abnormal reaction of the patient, or of later complication, without mention of misadventure at the time of the procedure
CPT/HCPCS: 36415; 36416; 71045; 76000; 80048; 81015; 85007; 85025; 85027; 85610; 85730; 86769; 87086; 93005; 93010; 93970; 94640; 94660; C1713; C1768; J0171; J0456; J0696; J1940; J1956; J2250; J2270; J2370; J2550; J2704; J3010; J3370; J3490; J7050; J7620; S0020; U0002

== ENCOUNTER 2021-06-26 07:00 | Outpatient (CLI) | payer MEDICARE ==
[2021-06-22 13:43] VITALS: BMI 38.0
[2021-06-26 08:16] VITALS: BP 136/99; TEMP 97.6
== END 2021-06-26 10:05 | disposition home or self-care (01) ==
LOC: RAD 07:00
PROVIDERS: ATTEND Nurse Practitioner Family
DX: M48.062 Spinal stenosis, lumbar region with neurogenic claudication (principal); M46.1 Sacroiliitis, not elsewhere classified; M47.816 Spondylosis without myelopathy or radiculopathy, lumbar region; Z98.890 Other specified postprocedural states
CPT/HCPCS: 62304; 72132

== ENCOUNTER 2021-08-16 12:49 | Outpatient (CLI) | payer MEDICARE | END 2021-08-16 12:50 | disposition home or self-care (01) | LOC: BICMAMMO 12:49 | PROVIDERS: ATTEND Family Medicine | DX: Z12.31 Encounter for screening mammogram for malignant neoplasm of breast (principal) | CPT/HCPCS: 77063; 77067 ==

== ENCOUNTER 2021-11-08 12:06 | Outpatient (CLI) | payer MEDICARE ==
[2021-11-08 13:30] LABS: Anion Gap 12 mmol/L (10-20); BUN (Urea Nitrogen) 13 mg/dL (9.8-20.1); Calc. Creatinine Clearance 0 mL/min (70-130); Calcium 9.7 mg/dL (7.8-10.44); Carbon Dioxide 27 mmol/L (23-31); Chloride 99 mmol/L (98-107); Glucose 97 mg/dL (80-115); Potassium 4.4 mmol/L (3.5-5.1); Sodium 134 mmol/L (136-145)
[2021-11-08 23:38] LABS: SARS-CoV-2 PCR by NAA Not Detected (NotDetected)
== END 2021-11-08 12:07 | disposition home or self-care (01) ==
LOC: LABBT 12:06
PROVIDERS: ATTEND Specialist
DX: Z01.812 Encounter for preprocedural laboratory examination (principal); Z20.822 Contact with and (suspected) exposure to COVID-19
CPT/HCPCS: 80048; U0003; U0005

== ENCOUNTER 2022-09-12 12:00 | Outpatient (CLI) | payer MEDICARE | END 2022-09-12 12:01 | disposition home or self-care (01) | LOC: LABBT 12:00 | PROVIDERS: ATTEND Orthopaedic Surgery | DX: Z01.818 Encounter for other preprocedural examination (principal); T85.848A Pain due to other internal prosthetic devices, implants and grafts, initial encounter | CPT/HCPCS: 93005; 93010 ==

== ENCOUNTER 2022-09-16 10:24 | Day surgery (SDC) | payer MEDICARE ==
[2022-09-12 14:18] VITALS: BMI 32.1
[2022-09-16] MEDS ORDERED: fentaNYL PF 100 MCG/2 ML SYRINGE ONE (10:54)
[2022-09-16] MEDS ORDERED: Levofloxacin 500 mg/D5W 100 ml Premix Bag ONE (10:56)
[2022-09-16] MEDS ORDERED: Clindamycin/D5W 900 mg/50 ml Premix Bag ONE (10:56)
[2022-09-16] MEDS ORDERED: Fentanyl 100 MCG/2 ML VIAL ONE ×2 (11:27→13:46)
[2022-09-16] MEDS ORDERED: Dexamethasone 20 MG/5 ML VIAL ONE (11:34)
[2022-09-16] MEDS ORDERED: PHENYLEPHRINE-NS 100 MCG/ML 10 ML SYRINGE ONE (11:34)
[2022-09-16] MEDS ORDERED: PROPOFOL 200 MG/20 ML VIAL ONE (11:34)
[2022-09-16] MEDS ORDERED: Bupivacaine HCl 0.5%/Epinephrine 1:200,000/PF 30 ml Vial ONE (11:34)
[2022-09-16] MEDS ORDERED: Lidocaine 1% PF 5 ML VIAL ONE (11:34)
[2022-09-16] MEDS ORDERED: Succinylcholine Chloride 100 MG/5 ML SYRINGE FS ONE (11:34)
[2022-09-16] MEDS ORDERED: Ondansetron PF 4 MG/2 ML Vial ONE (11:34)
[2022-09-16] MEDS ORDERED: Bupivacaine PF 0.5% 30 ML VIAL ONE (12:21)
== END 2022-09-16 15:45 | disposition home or self-care (01) ==
LOC: SDC 10:24
PROVIDERS: ATTEND Orthopaedic Surgery
PROC: 0PPF04Z Removal of Internal Fixation Device from Right Humeral Shaft, Open Approach (ICD-10-PCS; principal; 2022-09-16)
DX: T84.120A Displacement of internal fixation device of right humerus, initial encounter (principal); T84.110A Breakdown (mechanical) of internal fixation device of right humerus, initial encounter; I10 Essential (primary) hypertension; K21.9 Gastro-esophageal reflux disease without esophagitis; E78.00 Pure hypercholesterolemia, unspecified; M19.90 Unspecified osteoarthritis, unspecified site; M10.9 Gout, unspecified; J44.9 Chronic obstructive pulmonary disease, unspecified; Z87.891 Personal history of nicotine dependence; Z79.1 Long term (current) use of non-steroidal anti-inflammatories (NSAID); Z79.82 Long term (current) use of aspirin; Z79.899 Other long term (current) drug therapy; Z88.0 Allergy status to penicillin; Y79.3 Surgical instruments, materials and orthopedic devices (including sutures) associated with adverse incidents
CPT/HCPCS: 93005; 93010; J1100; J1956; J2405; J2704; J3010; J3490; S0020

== ENCOUNTER 2023-01-09 05:52 | Day surgery (SDC) | payer MEDICARE ==
[2023-01-06 11:28] VITALS: BMI 31.7
[2023-01-09] MEDS ORDERED: Sodium Chloride 0.9% 0 ML ONE (06:01)
[2023-01-09] MEDS ORDERED: Tranexamic Acid 1,000 MG/10 ML VIAL ONE (06:01)
[2023-01-09] MEDS ORDERED: Vancomycin (BATCH) 1.5 GRAM/300 ML BAG ONE (06:01)
[2023-01-09] MEDS ORDERED: fentaNYL PF 100 MCG/2 ML SYRINGE ONE (06:11)
[2023-01-09] MEDS ORDERED: Midazolam HCl 2 mg/2 ml Vial ONE (06:11)
[2023-01-09] MEDS ORDERED: Ondansetron HCl/PF 4 MG/2 ML Vial IVP PRN (06:43)
[2023-01-09] MEDS ORDERED: Promethazine HCl 25 MG/ML VIAL IM PRN (06:43)
[2023-01-09] MEDS ORDERED: HYDROmorphone 2 MG/ML VIAL SLOW IVP PRN (06:43)
[2023-01-09] MEDS ORDERED: Lidocaine 1% (PF) 30 ML VIAL ONE (06:51)
[2023-01-09] MEDS ORDERED: Bupivacaine PF 0.5% 30 ML VIAL ONE (06:51)
[2023-01-09] MEDS ORDERED: EPINEPHrine 1 MG/ML AMP ONE (06:51)
[2023-01-09] MEDS ORDERED: Bupivacaine HCl 0.5%/Epinephrine 1:200,000/PF 30 ml Vial ONE (06:51)
[2023-01-09] MEDS ORDERED: Sodium Chloride 0.9% 100 ML ONE (07:03)
[2023-01-09] MEDS ORDERED: CEFAZOLIN 2 GM VIAL ONE (07:03)
[2023-01-09] MEDS ORDERED: hydrALAZINE 20 MG/ML VIAL ONE (07:51)
== END 2023-01-09 08:28 | disposition short-term general hospital (02) ==
LOC: SDC 05:52
PROVIDERS: ATTEND Orthopaedic Surgery
DX: S42.401K Unspecified fracture of lower end of right humerus, subsequent encounter for fracture with nonunion (principal); Z53.09 Procedure and treatment not carried out because of other contraindication; F17.210 Nicotine dependence, cigarettes, uncomplicated; E78.00 Pure hypercholesterolemia, unspecified; I10 Essential (primary) hypertension; F41.8 Other specified anxiety disorders; M19.90 Unspecified osteoarthritis, unspecified site; Z79.899 Other long term (current) drug therapy; Z88.0 Allergy status to penicillin; Z79.1 Long term (current) use of non-steroidal anti-inflammatories (NSAID); X58.XXXD Exposure to other specified factors, subsequent encounter
CPT/HCPCS: J0171; J0360; J2001; J2250; J3370; J3490; S0020

== ENCOUNTER 2023-02-13 07:27 | Outpatient (CLI) | payer MEDICARE | END 2023-02-13 07:28 | disposition home or self-care (01) | LOC: ULT 07:27 | PROVIDERS: ATTEND Internal Medicine Cardiovascular Disease | DX: R09.89 Other specified symptoms and signs involving the circulatory and respiratory systems (principal); I65.22 Occlusion and stenosis of left carotid artery | CPT/HCPCS: 93880 ==

== ENCOUNTER 2023-07-15 11:06 | Inpatient (IN) | payer MEDICARE ==
[2023-07-15] MEDS ORDERED: Labetalol HCl 100 MG/20 ML VIAL ONE (14:30)
[2023-07-15 14:38] LABS: #Monocytes 0.6 thou/uL (0.11-0.59); #Neutrophils 4.6 thou/uL (1.40-6.50); %Basophils 0.3 % (0.0-1.0); %Lymphocytes 23.5 % (21.0-51.0); %Monocytes 8.8 % (0.0-10.0); Hematocrit 32.1 % (36.0-47.0); Hemoglobin 10.2 g/dL (12.0-16.0); Mean Corpuscular HGB CONC 31.8 g/dL (32.0-36.0); Mean Corpuscular Hemoglobin 30.2 pg (27.0-31.0); Mean Platelet Volume 10.1 fL (7.4-10.4); Platelet Count 232 10x3/uL (130-400); RBC Distribution Width 14.9 % (11.5-14.5); Red Blood Cell (RBC) Count 3.38 mill/uL (4.20-5.40); White Blood Cell (WBC) Count 6.9 10x3/uL (4.8-10.8)
[2023-07-15 15:00] LABS: ALT (SGPT) 10 U/L (8-55); AST (SGOT) 31 U/L (5-34); Albumin 3.4 g/dL (3.4-4.8); Alkaline Phosphatase 116 U/L (40-110); Anion Gap 12 mmol/L (10-20); BUN (Urea Nitrogen) 29 mg/dL (9.8-20.1); Bilirubin, Total 0.5 mg/dL (0.2-1.2); Calc. Creatinine Clearance 0 mL/min (70-130); Calcium 9.1 mg/dL (7.8-10.44); Carbon Dioxide 27 mmol/L (23-31); Chloride 103 mmol/L (98-107); Estimated GFR 23; Globulin 3.2 g/dL (2.4-3.5); Glucose 94 mg/dL (80-115); Lipase 21 U/L (8-78); Potassium 4.1 mmol/L (3.5-5.1); Protein, Total 6.6 g/dL (5.8-8.1); Sodium 138 mmol/L (136-145)
[2023-07-15] MEDS ORDERED: Aspirin 325 MG TAB ONE (16:34)
[2023-07-15 18:12] LABS: Troponin I 0.031 ng/mL (< 0.028)
[2023-07-15] MEDS ORDERED: Acetaminophen 325 MG TAB PO PRN (18:13)
[2023-07-15] MEDS ORDERED: traZODone HCl 50 MG TAB PO PRN (18:19)
[2023-07-15] MEDS ORDERED: HYDROcodone/Acetaminophen 5/325 mg Tablet PO PRN (18:19)
[2023-07-15] MEDS ORDERED: Nicotine 21 MG PATCH TD PRN (18:24)
[2023-07-15] MEDS ORDERED: Aspirin Chewable 81 MG TAB PO SCH (18:30)
[2023-07-15] MEDS ORDERED: niCARdipine 25 MG in Sodium Chloride 0.9% 250 ML 250 ML IVPB SCH ×2 (18:45→19:45)
[2023-07-15] MEDS ORDERED: niCARdipine 25 MG/10 ML SDV ONE (19:01)
[2023-07-15 21:03] LABS: Troponin I 0.036 ng/mL (< 0.028)
[2023-07-15] MEDS ORDERED: Labetalol HCl 100 MG/20 ML VIAL SLOW IVP PRN (21:51)
[2023-07-15] MEDS: Atorvastatin Calcium 40 MG TAB PO SCH (21:53)
[2023-07-15] MEDS: Heparin 5,000 UNITS/ML VIAL SC SCH (21:54)
[2023-07-15] MEDS: Gabapentin 100 MG CAP PO SCH (21:54)
[2023-07-15] MEDS: Sodium Chloride 0.9% 1,000 ML IV SCH (21:55)
[2023-07-15 22:00] VITALS: BMI 32.2
[2023-07-16 04:19] LABS: #Monocytes 0.4 thou/uL (0.11-0.59); #Neutrophils 3.4 thou/uL (1.40-6.50); %Basophils 0.6 % (0.0-1.0); %Eosinophils 0.2 % (0.0-10.0); %Lymphocytes 22.7 % (21.0-51.0); %Monocytes 7.5 % (0.0-10.0); %Neutrophils 68.6 % (42.0-75.0); Hematocrit 32.1 % (36.0-47.0); Hemoglobin 10.3 g/dL (12.0-16.0); Mean Corpuscular HGB CONC 32.1 g/dL (32.0-36.0); Mean Corpuscular Hemoglobin 30.6 pg (27.0-31.0); Mean Corpuscular Volume 95.3 fl (78.0-98.0); Mean Platelet Volume 10.4 fL (7.4-10.4); Platelet Count 193 10x3/uL (130-400); RBC Distribution Width 14.8 % (11.5-14.5); Red Blood Cell (RBC) Count 3.37 mill/uL (4.20-5.40); White Blood Cell (WBC) Count 4.9 10x3/uL (4.8-10.8)
[2023-07-16] MEDS ORDERED: niCARdipine 25 MG in Sodium Chloride 0.9% 250 ML 250 ML IVPB SCH (04:50)
[2023-07-16] MEDS: hydrALAZINE 20 MG/ML VIAL SLOW IVP PRN ×3 (04:53→17:39)
[2023-07-16 04:55] LABS: Anion Gap 11 mmol/L (10-20); BUN (Urea Nitrogen) 24 mg/dL (9.8-20.1); Calc. Creatinine Clearance 42 mL/min (70-130); Calcium 8.7 mg/dL (7.8-10.44); Carbon Dioxide 25 mmol/L (23-31); Cardiac Risk 4.1 (Less than 4.5); Chloride 108 mmol/L (98-107); Cholesterol 144 mg/dl (< 200 Desired); Estimated GFR 30; Glucose 118 mg/dL (80-115); HDL Cholesterol 35 mg/dL (>60 Neg Risk); LDL Cholesterol, Calculated 69 mg/dL; Potassium 3.7 mmol/L (3.5-5.1); Sodium 140 mmol/L (136-145); Triglycerides 200 mg/dL (Less than 150)
[2023-07-16] MEDS ORDERED: Famotidine/PF 20 mg/2ml Vial SLOW IVP SCH (09:00)
[2023-07-16] MEDS ORDERED: Colchicine 0.6 MG TAB PO SCH (09:00)
[2023-07-16] MEDS: Gabapentin 100 MG CAP PO SCH ×3 (09:27→20:26)
[2023-07-16] MEDS: Aspirin 81 mg Enteric Coated Tablet PO SCH (09:28)
[2023-07-16] MEDS: Mirabegron ER 25 MG ER.TAB PO SCH (09:29)
[2023-07-16] MEDS: Heparin 5,000 UNITS/ML VIAL SC SCH ×3 (09:29→20:34)
[2023-07-16 11:05] LABS: Bacteria/HPF None Seen HPF (None Seen); Bilirubin Negative (Negative); Blood, Urine Trace (Negative); Clarity Clear (Clear); Glucose, Urine (Dipstick) 30 mg/dL (Negative); Ketone, Urine Negative (Negative); Leukocyte Negative Leu/uL (Negative); Nitrite Negative (Negative); Protein, Urine (Dipstick) 200 mg/dL (Neg-Trace); RBC/HPF 0-3 HPF (0-3); Specific Gravity, Urine 1.005 (1.002-1.036); Squamous Epithelial 0-3 HPF (0-3); Urobilinogen Normal mg/dL (Less than 2); WBC/HPF 0-3 HPF (0-3)
[2023-07-16] MEDS: Sodium Chloride 0.9% 1,000 ML IV SCH ×2 (11:08→20:45)
[2023-07-16 11:42] LABS: Phosphorus 4.2 mg/dL (2.3-4.7)
[2023-07-16] MEDS ORDERED: Lorazepam 2 MG/ML VIAL SLOW IVP SCH (15:00)
[2023-07-16 15:34] LABS: Amphetamine Not Detected (NotDetected); Barbiturates Screen Not Detected (NotDetected); Benzodiazepine Screen Not Detected (NotDetected); Cocaine Metabolite Screen Not Detected (NotDetected); Methadone Not Detected (NotDetected); Methamphetamine Not Detected (NotDetected); Opiate Screen Detected (NotDetected); Oxycodone Screen Not Detected (NotDetected); Phencyclidine (PCP) Not Detected (NotDetected); THC/Cannabinoid Screen Not Detected (NotDetected); Tricyclic Screen Not Detected (NotDetected)
[2023-07-16 16:15] LABS: Creatinine, Urine 31.21 mg/dL (47-110)
[2023-07-16] MEDS ORDERED: Albuterol 200 PUFF (6.7GM INHALER) INH PRN (16:32)
[2023-07-16] MEDS ORDERED: NIFEdipine XL 60 MG ER.TAB PO SCH (16:45)
[2023-07-16] MEDS ORDERED: Haloperidol Lactate 5 MG/ML VIAL SLOW IVP SCH (16:45)
[2023-07-16] MEDS ORDERED: Haloperidol Lactate 5 MG/ML VIAL ONE (16:50)
[2023-07-16] MEDS ORDERED: Ziprasidone 20 MG VIAL IM SCH (17:45)
[2023-07-16] MEDS ORDERED: Sterile Water 10 ML VIAL FS PRN (18:00)
[2023-07-16] MEDS: Atorvastatin Calcium 40 MG TAB PO SCH (20:25)
[2023-07-16] MEDS: busPIRone HCl 10 MG TAB PO SCH (20:26)
[2023-07-16] MEDS: Oxybutynin 5 MG TAB PO SCH (20:34)
[2023-07-17] MEDS: hydrALAZINE 20 MG/ML VIAL SLOW IVP PRN (03:50)
[2023-07-17 06:33] LABS: #Monocytes 0.5 thou/uL (0.11-0.59); #Neutrophils 7.7 thou/uL (1.40-6.50); %Basophils 0.3 % (0.0-1.0); %Monocytes 5.5 % (0.0-10.0); %Neutrophils 82.3 % (42.0-75.0); Hematocrit 37.4 % (36.0-47.0); Hemoglobin 11.8 g/dL (12.0-16.0); Mean Corpuscular HGB CONC 31.6 g/dL (32.0-36.0); Mean Corpuscular Volume 95.2 fl (78.0-98.0); Platelet Count 257 10x3/uL (130-400); RBC Distribution Width 14.9 % (11.5-14.5); Red Blood Cell (RBC) Count 3.93 mill/uL (4.20-5.40); White Blood Cell (WBC) Count 9.3 10x3/uL (4.8-10.8)
[2023-07-17 06:34] LABS: Uric Acid 4.1 mg/dL (2.6-6.0)
[2023-07-17 06:38] LABS: Albumin 3.2 g/dL (3.4-4.8); Chloride 106 mmol/L (98-107); Potassium 3.6 mmol/L (3.5-5.1); Sodium 139 mmol/L (136-145)
[2023-07-17 06:39] LABS: Calcium 9.6 mg/dL (7.8-10.44); Glucose 144 mg/dL (80-115)
[2023-07-17 06:40] LABS: Globulin 3.6 g/dL (2.4-3.5); Protein, Total 6.8 g/dL (5.8-8.1)
[2023-07-17 06:41] LABS: Anion Gap 13 mmol/L (10-20); Bilirubin, Total 0.7 mg/dL (0.2-1.2); Carbon Dioxide 24 mmol/L (23-31)
[2023-07-17 06:42] LABS: Alkaline Phosphatase 123 U/L (40-110)
[2023-07-17 06:43] LABS: Calc. Creatinine Clearance 49 mL/min (70-130); Estimated GFR 36
[2023-07-17 06:44] LABS: BUN (Urea Nitrogen) 20 mg/dL (9.8-20.1)
[2023-07-17 06:45] LABS: ALT (SGPT) 12 U/L (8-55); AST (SGOT) 28 U/L (5-34)
[2023-07-17 06:49] LABS: HIV (1/2) Antibody/Antigen Non-Reactive (NonReactive); HIV 1/2 INDEX 0.52 S/CO (<1.00)
[2023-07-17] MEDS: Polyethylene Glycol 3350 17 GM Packet PO SCH (09:00)
[2023-07-17] MEDS: hydrALAZINE 25 MG TAB PO SCH ×3 (09:00→21:35)
[2023-07-17] MEDS ORDERED: Allopurinol 300 MG TAB PO SCH (09:00)
[2023-07-17] MEDS: Aspirin 81 mg Enteric Coated Tablet PO SCH (09:01)
[2023-07-17] MEDS: DULoxetine 30 MG CAP PO SCH (09:01)
[2023-07-17] MEDS: Allopurinol 100 MG TAB PO SCH (09:01)
[2023-07-17] MEDS: NIFEdipine XL 60 MG ER.TAB PO SCH (09:01)
[2023-07-17] MEDS: Cyanocobalamin (Vitamin B-12) 1,000 MCG TAB PO SCH (09:01)
[2023-07-17] MEDS: Metoprolol Tartrate 50 MG TAB PO SCH ×2 (09:01→21:37)
[2023-07-17] MEDS: Gabapentin 100 MG CAP PO SCH ×3 (09:02→21:36)
[2023-07-17] MEDS: Mirabegron ER 25 MG ER.TAB PO SCH (09:02)
[2023-07-17] MEDS: Heparin 5,000 UNITS/ML VIAL SC SCH ×3 (09:02→21:37)
[2023-07-17] MEDS: Oxybutynin 5 MG TAB PO SCH ×2 (09:02→21:37)
[2023-07-17] MEDS: busPIRone HCl 10 MG TAB PO SCH ×2 (09:02→21:34)
[2023-07-17] MEDS: Sodium Chloride 0.9% 1,000 ML IV SCH (15:40)
[2023-07-17] MEDS: Atorvastatin Calcium 40 MG TAB PO SCH (21:36)
[2023-07-18] MEDS: Sodium Chloride 0.9% 1,000 ML IV SCH (03:53)
[2023-07-18 05:47] LABS: #Monocytes 0.5 thou/uL (0.11-0.59); #Neutrophils 5.2 thou/uL (1.40-6.50); %Basophils 0.6 % (0.0-1.0); %Eosinophils 0.1 % (0.0-10.0); %Lymphocytes 17.5 % (21.0-51.0); %Monocytes 6.9 % (0.0-10.0); %Neutrophils 74.3 % (42.0-75.0); Hematocrit 33.3 % (36.0-47.0); Hemoglobin 10.5 g/dL (12.0-16.0); Mean Corpuscular HGB CONC 31.5 g/dL (32.0-36.0); Mean Corpuscular Hemoglobin 30.3 pg (27.0-31.0); Mean Platelet Volume 10.4 fL (7.4-10.4); Platelet Count 240 10x3/uL (130-400); RBC Distribution Width 15.3 % (11.5-14.5); Red Blood Cell (RBC) Count 3.47 mill/uL (4.20-5.40)
[2023-07-18 06:34] LABS: Anion Gap 14 mmol/L (10-20); BUN (Urea Nitrogen) 22 mg/dL (9.8-20.1); Calc. Creatinine Clearance 48 mL/min (70-130); Calcium 9.2 mg/dL (7.8-10.44); Carbon Dioxide 23 mmol/L (23-31); Chloride 105 mmol/L (98-107); Estimated GFR 35; Glucose 117 mg/dL (80-115); Potassium 3.6 mmol/L (3.5-5.1); Sodium 138 mmol/L (136-145)
[2023-07-18 08:09] VITALS: TEMP 97.8
[2023-07-18] MEDS: NIFEdipine XL 60 MG ER.TAB PO SCH (08:55)
[2023-07-18] MEDS: Gabapentin 100 MG CAP PO SCH (08:55)
[2023-07-18] MEDS: Cyanocobalamin (Vitamin B-12) 1,000 MCG TAB PO SCH (08:55)
[2023-07-18] MEDS: DULoxetine 30 MG CAP PO SCH (08:55)
[2023-07-18] MEDS: Aspirin 81 mg Enteric Coated Tablet PO SCH (08:55)
[2023-07-18] MEDS: Allopurinol 100 MG TAB PO SCH (08:55)
[2023-07-18] MEDS: busPIRone HCl 10 MG TAB PO SCH (08:55)
[2023-07-18] MEDS: hydrALAZINE 25 MG TAB PO SCH (08:57)
[2023-07-18] MEDS: Oxybutynin 5 MG TAB PO SCH (08:57)
[2023-07-18] MEDS: Metoprolol Tartrate 50 MG TAB PO SCH (08:58)
[2023-07-18] MEDS: Mirabegron ER 25 MG ER.TAB PO SCH (08:58)
[2023-07-18] MEDS ORDERED: Calcitriol 0.25 MCG CAP PO SCH (09:00)
[2023-07-18 09:06] VITALS: BP 169/94
[2023-07-18] MEDS: Heparin 5,000 UNITS/ML VIAL SC SCH (09:52)
[2023-07-18] MEDS: Polyethylene Glycol 3350 17 GM Packet PO SCH (09:52)
[2023-07-18 22:37] LABS: A/G Ratio 0.9 (0.7-1.7); Albumin 2.7 g/dL (2.9-4.4); Alpha 1 0.3 g/dL (0.0-0.4); Alpha 2 0.9 g/dL (0.4-1.0); Beta 0.8 g/dL (0.7-1.3); Gamma 1.1 g/dL (0.4-1.8); Globulin, Total 3.1 g/dL (2.2-3.9); M-Spike Not Observed g/dL (Not Observed)
[2023-07-22 09:17] LABS: Hep B Surface AG-Rflx Sendout Negative (Negative); Hepatitis B Core Total Negative (Negative); Hepatitis B Surface AB-Sendout Non Reactive (.)
[2023-07-23] MEDS ORDERED: Ergocalciferol 1.25 MG(50,000 UNITS) CAP PO SCH (09:00)
== END 2023-07-18 12:24 | disposition home or self-care (01) | DRG 304 ==
LOC: ERS 11:06 → ERHOLD 16:31 → CCU 21:19 → T4-A 07-16 16:50
PROVIDERS: ADMIT Family Medicine; ATTEND Internal Medicine
PROC: 4A00X4Z Measurement of Central Nervous Electrical Activity, External Approach (ICD-10-PCS; principal; 2023-07-16)
DX: I16.0 Hypertensive urgency (principal); G93.41 Metabolic encephalopathy; N17.9 Acute kidney failure, unspecified; R44.3 Hallucinations, unspecified; N25.81 Secondary hyperparathyroidism of renal origin; I12.9 Hypertensive chronic kidney disease with stage 1 through stage 4 chronic kidney disease, or unspecified chronic kidney disease; Z88.0 Allergy status to penicillin; Z79.899 Other long term (current) drug therapy; G89.29 Other chronic pain; M54.9 Dorsalgia, unspecified; K21.9 Gastro-esophageal reflux disease without esophagitis; Z90.710 Acquired absence of both cervix and uterus; Z98.890 Other specified postprocedural states; F17.210 Nicotine dependence, cigarettes, uncomplicated; E78.5 Hyperlipidemia, unspecified; M10.9 Gout, unspecified; N18.30 Chronic kidney disease, stage 3 unspecified; E11.22 Type 2 diabetes mellitus with diabetic chronic kidney disease; Z83.3 Family history of diabetes mellitus; G47.00 Insomnia, unspecified; M25.512 Pain in left shoulder; D63.1 Anemia in chronic kidney disease; G47.33 Obstructive sleep apnea (adult) (pediatric); I65.23 Occlusion and stenosis of bilateral carotid arteries
CPT/HCPCS: 36415; 70450; 71045; 74176; 76770; 80048; 80053; 80061; 80306; 81001; 82570; 83690; 83880; 83970; 84100; 84155; 84156; 84165; 84166; 84443; 84484; 84550; 85025; 86704; 86706; 87340; 87389; 87522; 93005; 93306; 93880; 95711; 95819; 96374; J0360; J1630; J1644; J2060; J3486; J7050; S0028

== ENCOUNTER 2024-02-04 13:35 | Outpatient (CLI) | payer MEDICARE | END 2024-02-04 13:36 | disposition home or self-care (01) | LOC: BICMAMMO 13:35 | PROVIDERS: ATTEND Family Medicine | DX: Z12.31 Encounter for screening mammogram for malignant neoplasm of breast (principal); Z91.89 Other specified personal risk factors, not elsewhere classified | CPT/HCPCS: 77063; 77067 ==

== ENCOUNTER 2024-05-04 07:53 | Inpatient (IN) | payer MEDICARE ==
[2024-05-03 13:16] VITALS: BMI 40.4
[2024-05-04] MEDS ORDERED: Clindamycin/D5W 600 mg/50 ml Premix Bag ONE (09:00)
[2024-05-04] MEDS ORDERED: EPINEPHrine 1 MG/ML VIAL ONE (09:02)
[2024-05-04] MEDS ORDERED: Bupivacaine PF 0.5% 30 ML VIAL ONE (09:02)
[2024-05-04] MEDS ORDERED: Heparin 5,000 UNITS/ML VIAL ONE (09:02)
[2024-05-04 09:11] LABS: #Basophils Less than 0.03 10x3/uL (0.0-0.2); #Eosinphils Less than 0.03 10x3/uL (0.0-0.7); %Basophils 0.4 % (0.0-1.0); %Eosinophils 0.2 % (0.0-10.0); %Lymphocytes 22.9 % (21.0-51.0); %Monocytes 9.4 % (0.0-10.0); %Neutrophils 66.7 % (42.0-75.0); Mean Corpuscular Hemoglobin 30.1 pg (27.0-31.0); Mean Platelet Volume 10.2 fL (7.4-10.4); Platelet Count 221 10x3/uL (130-400); RBC Distribution Width 14.5 % (11.5-14.5); Red Blood Cell (RBC) Count 2.99 mill/uL (4.20-5.40)
[2024-05-04] MEDS ORDERED: PROPOFOL 0 ML ONE (09:25)
[2024-05-04] MEDS ORDERED: fentaNYL PF 100 MCG/2 ML SYRINGE ONE (09:25)
[2024-05-04] MEDS ORDERED: Lidocaine 2% PF 5 ML VIAL ONE (09:25)
[2024-05-04] MEDS ORDERED: Rocuronium Bromide 10 MG/ML (10ML VIAL) ONE (09:26)
[2024-05-04] MEDS ORDERED: NOREPINEPHRINE 8 MG/250 ML-D5W 0 ML ONE (09:27)
[2024-05-04] MEDS ORDERED: NOREPINEPHRINE 8 MG/250 ML-D5W 250 ML ONE (09:29)
[2024-05-04 09:31] LABS: ALT (SGPT) 7 U/L (8-55); AST (SGOT) 14 U/L (5-34); Albumin 3.4 g/dL (3.4-4.8); Alkaline Phosphatase 59 U/L (40-110); Anion Gap 15 mmol/L (10-20); BUN (Urea Nitrogen) 43 mg/dL (9.8-20.1); Bilirubin, Total 0.4 mg/dL (0.2-1.2); Calc. Creatinine Clearance 45 mL/min (70-130); Calcium 9.5 mg/dL (7.8-10.44); Carbon Dioxide 22 mmol/L (23-31); Chloride 107 mmol/L (98-107); Estimated GFR 24; Globulin 3.6 g/dL (2.4-3.5); Glucose 111 mg/dL (80-115); Sodium 138 mmol/L (136-145)
[2024-05-04] MEDS ORDERED: Dexamethasone 4 mg/ml Vial ONE (09:35)
[2024-05-04] MEDS ORDERED: SUGAMMADEX SODIUM 200 MG/2 ML VIAL ONE (10:24)
[2024-05-04] MEDS ORDERED: Ondansetron PF 4 MG/2 ML Vial ONE (10:24)
[2024-05-04] MEDS ORDERED: Calcium Chloride 1 GM/10 ML Abboject SYRINGE IVP SCH (10:30)
[2024-05-04] MEDS ORDERED: Naloxone HCl 0.4 mg/ml Vial ONE ×2 (10:39→10:48)
[2024-05-04] MEDS: Naloxone HCl 0.4 mg/ml Vial IV SCH ×2 (10:43→10:52)
[2024-05-04] MEDS: Furosemide 20 MG (2 mL) VIAL SLOW IVP SCH (12:06)
[2024-05-04 13:09] LABS: Anion Gap 13 mmol/L (10-20); BUN (Urea Nitrogen) 41 mg/dL (9.8-20.1); Calc. Creatinine Clearance 50 mL/min (70-130); Calcium 9.6 mg/dL (7.8-10.44); Carbon Dioxide 20 mmol/L (23-31); Chloride 111 mmol/L (98-107); Estimated GFR 28; Glucose 104 mg/dL (80-115); Potassium 5.7 mmol/L (3.5-5.1); Sodium 138 mmol/L (136-145)
[2024-05-04 13:17] LABS: Bacteria/HPF None Seen HPF (None Seen); RBC/HPF 0-3 HPF (0-3); Squamous Epithelial 0-3 HPF (0-3); WBC/HPF None Seen HPF (0-3)
[2024-05-04] MEDS ORDERED: Ondansetron PF 4 MG/2 ML Vial IVP PRN (13:48)
[2024-05-04] MEDS ORDERED: Nitroglycerin 50 MG/250 ML BOT 250 ML IVPB PRN (13:48)
[2024-05-04] MEDS ORDERED: Ipratropium/Albuterol 3 ML NEB NEB PRN (13:48)
[2024-05-04] MEDS ORDERED: Phenylephrine 40 MG in Sodium Chloride 0.9% 250 ML 250 ML IVPB PRN (13:48)
[2024-05-04 14:06] LABS: Amphetamine Not Detected (NotDetected); Barbiturates Screen Not Detected (NotDetected); Benzodiazepine Screen Not Detected (NotDetected); Cocaine Metabolite Screen Not Detected (NotDetected); Methadone Not Detected (NotDetected); Methamphetamine Not Detected (NotDetected); Opiate Screen Not Detected (NotDetected); Oxycodone Screen Not Detected (NotDetected); Phencyclidine (PCP) Not Detected (NotDetected); THC/Cannabinoid Screen Not Detected (NotDetected); Tricyclic Screen Not Detected (NotDetected)
[2024-05-04] MEDS ORDERED: Albuterol 1.25 MG (3 mL) NEB NEB PRN (14:09)
[2024-05-04] MEDS ORDERED: Phenylephrine 40 MG/NS 250 ML 40 MG in Premix 1 BAG IVPB PRN (14:12)
[2024-05-04 14:58] LABS: Potassium 5.8 mmol/L (3.5-5.1)
[2024-05-04 15:43] LABS: Potassium 5.6 mmol/L (3.5-5.1)
[2024-05-04] MEDS: Sodium Chloride 0.9% 1,000 ML IV SCH (15:57)
[2024-05-04] MEDS: Sodium Bicarb 50 mEq/50 ML VIAL IVP SCH (15:57)
[2024-05-04] MEDS: Ipratropium/Albuterol 3 ML NEB NEB SCH ×2 (15:57→19:35)
[2024-05-04] MEDS: Clindamycin/D5W 600 MG in Premix 1 BAG IVPB SCH (15:58)
[2024-05-04] MEDS: LOKELMA 10 GM PACKET PO SCH (18:36)
[2024-05-04 18:56] LABS: Actual Bicarbonate (HCO3a) 23.6 mEq/L (22-28); Analyzer IN Cardio OR; Carboxyhemoglobin (COHb) 2.2 gm% (0.0-3.0); Hematocrit-ABG 27 % (36.0-47.0); Hemoglobin (Hb) 9.3 g/dL (12.0-16.0); Puncture Site Arterial Line; pH, Arterial 7.348 (7.35-7.45)
[2024-05-04] MEDS: Atorvastatin Calcium 40 MG TAB PO SCH (20:03)
[2024-05-04] MEDS: traMADol HCl 50 MG TAB PO PRN (20:03)
[2024-05-04] MEDS: hydrOXYzine 25 MG TAB PO SCH (20:03)
[2024-05-04] MEDS: busPIRone HCl 10 MG TAB PO SCH (20:03)
[2024-05-05 03:58] LABS: #Basophils Less than 0.03 10x3/uL (0.0-0.2); #Eosinphils Less than 0.03 10x3/uL (0.0-0.7); %Basophils 0.6 % (0.0-1.0); %Eosinophils 0.3 % (0.0-10.0); %Lymphocytes 27.4 % (21.0-51.0); %Monocytes 11.5 % (0.0-10.0); %Neutrophils 59.9 % (42.0-75.0); Hematocrit 23.9 % (36.0-47.0); Hemoglobin 7.2 g/dL (12.0-16.0); Mean Corpuscular HGB CONC 30.1 g/dL (32.0-36.0); Mean Corpuscular Hemoglobin 29.5 pg (27.0-31.0); Mean Platelet Volume 9.9 fL (7.4-10.4); Platelet Count 185 10x3/uL (130-400); RBC Distribution Width 14.3 % (11.5-14.5); Red Blood Cell (RBC) Count 2.44 mill/uL (4.20-5.40)
[2024-05-05 04:10] LABS: Anion Gap 11 mmol/L (10-20); BUN (Urea Nitrogen) 38 mg/dL (9.8-20.1); Calc. Creatinine Clearance 37 mL/min (70-130); Calcium 8.5 mg/dL (7.8-10.44); Carbon Dioxide 22 mmol/L (23-31); Chloride 109 mmol/L (98-107); Estimated GFR 33; Glucose 111 mg/dL (80-115); Sodium 137 mmol/L (136-145)
[2024-05-05] MEDS: Metoprolol Tartrate 100 MG TAB PO SCH (08:45)
[2024-05-05] MEDS: Gabapentin 300 MG CAP PO SCH (08:45)
[2024-05-05] MEDS: Allopurinol 300 MG TAB PO SCH (08:46)
[2024-05-05] MEDS: Pantoprazole DR 40 MG TAB PO SCH (08:46)
[2024-05-05] MEDS: NIFEdipine XL 60 MG ER.TAB PO SCH (08:46)
[2024-05-05] MEDS: Sertraline 25 MG TAB PO SCH (08:47)
[2024-05-05] MEDS: Famotidine 20 MG TAB PO SCH (08:47)
[2024-05-05] MEDS: Acetaminophen 325 MG TAB PO PRN (19:47)
[2024-05-05] MEDS: Sodium Ferric Gluconate 250 MG in Sodium Chloride 0.9% 250 ML 250 ML IVPB SCH (22:11)
[2024-05-06 04:31] LABS: #Basophils Less than 0.03 10x3/uL (0.0-0.2); #Eosinphils Less than 0.03 10x3/uL (0.0-0.7); %Basophils 0.5 % (0.0-1.0); %Eosinophils 0.2 % (0.0-10.0); %Neutrophils 62.1 % (42.0-75.0); Hematocrit 33.5 % (36.0-47.0); Hemoglobin 10.3 g/dL (12.0-16.0); Mean Corpuscular HGB CONC 30.7 g/dL (32.0-36.0); Mean Corpuscular Hemoglobin 28.9 pg (27.0-31.0); Mean Corpuscular Volume 93.8 fL (78.0-98.0); Mean Platelet Volume 9.8 fL (7.4-10.4); Platelet Count 183 10x3/uL (130-400); Red Blood Cell (RBC) Count 3.57 mill/uL (4.20-5.40)
[2024-05-06 04:36] LABS: Anion Gap 11 mmol/L (10-20); BUN (Urea Nitrogen) 37 mg/dL (9.8-20.1); Calc. Creatinine Clearance 38 mL/min (70-130); Calcium 9.1 mg/dL (7.8-10.44); Carbon Dioxide 24 mmol/L (23-31); Chloride 109 mmol/L (98-107); Estimated GFR 35; Glucose 99 mg/dL (80-115); Potassium 5.5 mmol/L (3.5-5.1); Sodium 138 mmol/L (136-145)
[2024-05-06] MEDS: LOKELMA 10 GM PACKET PO SCH (13:46)
[2024-05-06] MEDS ORDERED: Sterile Water 10 ML VIAL IVP SCH (15:45)
[2024-05-06] MEDS: Sodium Ferric Gluconate 250 MG in Sodium Chloride 0.9% 250 ML 250 ML IVPB SCH (18:13)
[2024-05-06] MEDS: Ziprasidone 20 MG VIAL IM SCH (19:53)
[2024-05-07] MEDS: hydrALAZINE 20 MG/ML VIAL SLOW IVP PRN ×2 (01:07→17:22)
[2024-05-07 06:09] LABS: #Basophils Less than 0.03 10x3/uL (0.0-0.2); #Eosinphils Less than 0.03 10x3/uL (0.0-0.7); %Basophils 0.4 % (0.0-1.0); %Lymphocytes 18.6 % (21.0-51.0); %Monocytes 9.7 % (0.0-10.0); %Neutrophils 70.7 % (42.0-75.0); Hematocrit 34.2 % (36.0-47.0); Mean Corpuscular HGB CONC 32.2 g/dL (32.0-36.0); Mean Corpuscular Volume 90.2 fL (78.0-98.0); Mean Platelet Volume 9.5 fL (7.4-10.4); Platelet Count 202 10x3/uL (130-400); RBC Distribution Width 15.8 % (11.5-14.5); Red Blood Cell (RBC) Count 3.79 mill/uL (4.20-5.40)
[2024-05-07 06:27] LABS: Anion Gap 11 mmol/L (10-20); BUN (Urea Nitrogen) 36 mg/dL (9.8-20.1); Calc. Creatinine Clearance 38 mL/min (70-130); Calcium 9.4 mg/dL (7.8-10.44); Carbon Dioxide 22 mmol/L (23-31); Chloride 109 mmol/L (98-107); Estimated GFR 34; Glucose 111 mg/dL (80-115); Potassium 5.1 mmol/L (3.5-5.1); Sodium 137 mmol/L (136-145)
[2024-05-07] MEDS: Digoxin 0.5 MG/2 ML AMP SLOW IVP SCH (08:20)
[2024-05-07] MEDS: Digoxin 0.25 MG TAB PO SCH (08:27)
[2024-05-07] MEDS ORDERED: Clindamycin/D5W 600 MG in Premix 1 BAG IVPB SCH (10:00)
[2024-05-07] MEDS ORDERED: Heparin 5,000 UNITS/ML VIAL ONE ×2 (13:39→13:47)
[2024-05-07] MEDS ORDERED: Bupivacaine PF 0.5% 30 ML VIAL ONE ×2 (13:39→13:47)
[2024-05-07] MEDS ORDERED: EPINEPHrine 1 MG/ML VIAL ONE (13:39)
[2024-05-07] MEDS ORDERED: Nitroglycerin 50 MG/250 ML BOT 250 ML ONE (13:43)
[2024-05-07] MEDS ORDERED: Lidocaine 1% PF 5 ML VIAL ONE (13:43)
[2024-05-07] MEDS ORDERED: PROPOFOL 20 ML ONE (13:43)
[2024-05-07] MEDS ORDERED: Rocuronium Bromide 10 MG/ML (10ML VIAL) ONE (13:43)
[2024-05-07] MEDS ORDERED: fentaNYL PF 100 MCG/2 ML SYRINGE ONE (13:43)
[2024-05-07] MEDS ORDERED: Sodium Chloride 0.9% 100 ML ONE (13:52)
[2024-05-07] MEDS ORDERED: CEFAZOLIN 2 GM VIAL ONE (13:52)
[2024-05-07] MEDS ORDERED: Dexamethasone 4 mg/ml Vial ONE (14:22)
[2024-05-07] MEDS ORDERED: Ondansetron PF 4 MG/2 ML Vial ONE ×2 (14:22→15:58)
[2024-05-07] MEDS ORDERED: PHENYLEPHRINE-NS 100 MCG/ML 10 ML SYRINGE ONE (14:27)
[2024-05-07] MEDS ORDERED: SUGAMMADEX SODIUM 200 MG/2 ML VIAL ONE ×2 (14:39→15:02)
[2024-05-07] MEDS ORDERED: Heparin 10,000 UNITS/ 10 ML VIAL ONE (14:51)
[2024-05-07] MEDS ORDERED: Protamine Sulfate 50 MG/5 ML VIAL ONE (14:51)
[2024-05-07] MEDS ORDERED: fentaNYL 50 mcg/mL 1 mL Vial ONE (15:27)
[2024-05-07] MEDS ORDERED: Labetalol HCl 100 MG/20 ML VIAL ONE (15:37)
[2024-05-07] MEDS ORDERED: Ipratropium/Albuterol 3 ML NEB NEB PRN (16:03)
[2024-05-07] MEDS ORDERED: Acetaminophen 325 MG TAB PO PRN (16:03)
[2024-05-07] MEDS ORDERED: Ondansetron PF 4 MG/2 ML Vial IVP PRN (16:03)
[2024-05-07] MEDS ORDERED: Nitroglycerin 50 MG/250 ML BOT 250 ML IVPB PRN (16:03)
[2024-05-07] MEDS ORDERED: hydrALAZINE 20 MG/ML VIAL ONE (16:12)
[2024-05-07] MEDS ORDERED: Phenylephrine 40 MG/NS 250 ML 40 MG in Premix 1 BAG IVPB PRN (16:19)
[2024-05-07] MEDS: Sodium Chloride 0.9% 1,000 ML IV SCH (17:00)
[2024-05-07] MEDS: Clindamycin/D5W 600 MG in Premix 1 BAG IVPB SCH (17:22)
[2024-05-07] MEDS ORDERED: hydrALAZINE 20 MG/ML VIAL SLOW IVP PRN (17:41)
[2024-05-07] MEDS: fentaNYL 50 mcg/mL 1 mL Vial SLOW IVP PRN (18:20)
[2024-05-07] MEDS: Ipratropium/Albuterol 3 ML NEB NEB SCH (19:01)
[2024-05-08 06:12] LABS: #Basophils Less than 0.03 10x3/uL (0.0-0.2); #Eosinphils Less than 0.03 10x3/uL (0.0-0.7); %Basophils 0.3 % (0.0-1.0); %Lymphocytes 8.7 % (21.0-51.0); %Monocytes 7.7 % (0.0-10.0); %Neutrophils 82.6 % (42.0-75.0); Hematocrit 33.3 % (36.0-47.0); Hemoglobin 10.4 g/dL (12.0-16.0); Mean Corpuscular HGB CONC 31.2 g/dL (32.0-36.0); Mean Corpuscular Hemoglobin 29.4 pg (27.0-31.0); Mean Corpuscular Volume 94.1 fL (78.0-98.0); Mean Platelet Volume 8.9 fL (7.4-10.4); Platelet Count 188 10x3/uL (130-400); RBC Distribution Width 15.9 % (11.5-14.5); Red Blood Cell (RBC) Count 3.54 mill/uL (4.20-5.40)
[2024-05-08 06:50] LABS: Anion Gap 11 mmol/L (10-20); BUN (Urea Nitrogen) 41 mg/dL (9.8-20.1); Calc. Creatinine Clearance 36 mL/min (70-130); Calcium 9.1 mg/dL (7.8-10.44); Carbon Dioxide 21 mmol/L (23-31); Chloride 106 mmol/L (98-107); Estimated GFR 32; Glucose 144 mg/dL (80-115); Potassium 5.4 mmol/L (3.5-5.1); Sodium 133 mmol/L (136-145)
[2024-05-08 07:44] VITALS: TEMP 97.8
[2024-05-08] MEDS: Digoxin 0.125 MG TAB PO SCH (09:39)
[2024-05-08] MEDS: Aspirin Chewable 81 MG TAB PO SCH (09:40)
[2024-05-08 09:41] VITALS: BP 138/105
[2024-05-08] MEDS: Insulin Regular, Human 100 UNIT/ML 10 ML VIAL IVP SCH (15:56)
[2024-05-08] MEDS: Dextrose 50% Abboject 50 ML SYRINGE SLOW IVP SCH (15:56)
[2024-05-08] MEDS: Sodium Polystyrene Sulfonate 15 GM (60 mL) BOT PO SCH (15:57)
== END 2024-05-08 16:51 | disposition home or self-care (01) | DRG 37 ==
LOC: SURG A 07:53 → IMCU/EMU 14:58
PROVIDERS: ADMIT Thoracic Surgery (Cardiothoracic Vascular Surgery); ATTEND Internal Medicine
PROC: 4A033R1 Measurement of Arterial Saturation, Peripheral, Percutaneous Approach (ICD-10-PCS; 2024-05-04)
PROC: 3E033XZ Introduction of Vasopressor into Peripheral Vein, Percutaneous Approach (ICD-10-PCS; 2024-05-04)
PROC: 30233N1 Transfusion of Nonautologous Red Blood Cells into Peripheral Vein, Percutaneous Approach (ICD-10-PCS; 2024-05-05)
PROC: 03CM0ZZ Extirpation of Matter from Right External Carotid Artery, Open Approach (ICD-10-PCS; principal; 2024-05-07)
PROC: 03CK0ZZ Extirpation of Matter from Right Internal Carotid Artery, Open Approach (ICD-10-PCS; 2024-05-07)
PROC: 03UK0KZ Supplement Right Internal Carotid Artery with Nonautologous Tissue Substitute, Open Approach (ICD-10-PCS; 2024-05-07)
DX: I65.21 Occlusion and stenosis of right carotid artery (principal); G93.41 Metabolic encephalopathy; E87.1 Hypo-osmolality and hyponatremia; N17.9 Acute kidney failure, unspecified; I47.10 Supraventricular tachycardia, unspecified; I13.0 Hypertensive heart and chronic kidney disease with heart failure and stage 1 through stage 4 chronic kidney disease, or unspecified chronic kidney disease; N18.4 Chronic kidney disease, stage 4 (severe); E87.20 Acidosis, unspecified; I50.32 Chronic diastolic (congestive) heart failure; E87.5 Hyperkalemia; D63.1 Anemia in chronic kidney disease; G47.33 Obstructive sleep apnea (adult) (pediatric); J44.9 Chronic obstructive pulmonary disease, unspecified; K21.9 Gastro-esophageal reflux disease without esophagitis; Z88.0 Allergy status to penicillin; Z88.8 Allergy status to other drugs, medicaments and biological substances; Z90.710 Acquired absence of both cervix and uterus
CPT/HCPCS: 36415; 36430; 70450; 71045; 80048; 80053; 80306; 81015; 82140; 82805; 83605; 85025; 86850; 86900; 86901; 87040; 93005; 93010; 94640; C1768; J0171; J0360; J0665; J1100; J1160; J1642; J1644; J2001; J2310; J2405; J2704; J2720; J2916; J3010; J3490; J7030; J7050; J7620; P9016

== ENCOUNTER 2024-06-21 10:12 | Inpatient (IN) | payer MEDICARE ==
[2024-06-21] MEDS ORDERED: Rocuronium Bromide 10 MG/ML (10ML VIAL) ONE (15:25)
[2024-06-21] MEDS ORDERED: PROPOFOL 200 MG/20 ML VIAL ONE (15:25)
[2024-06-21] MEDS ORDERED: Dexamethasone 20 MG/5 ML VIAL ONE (15:25)
[2024-06-21] MEDS ORDERED: ePHEDrine Sulfate 50 MG/10 ML VIAL ONE (15:25)
[2024-06-21] MEDS ORDERED: Nitroglycerin 50 MG/250 ML BOT 250 ML IVPB PRN (16:37)
[2024-06-21] MEDS ORDERED: hydrALAZINE 25 MG TAB PO PRN (16:37)
[2024-06-21] MEDS ORDERED: traMADol HCl 50 MG TAB PO PRN (16:37)
[2024-06-21] MEDS ORDERED: Ondansetron PF 4 MG/2 ML Vial IVP PRN (16:37)
[2024-06-21] MEDS ORDERED: fentaNYL 50 mcg/mL 1 mL Vial SLOW IVP PRN (16:37)
[2024-06-21] MEDS ORDERED: hydrALAZINE 20 MG/ML VIAL SLOW IVP PRN (16:37)
[2024-06-21] MEDS ORDERED: Ipratropium/Albuterol 3 ML NEB NEB PRN (16:37)
[2024-06-21] MEDS ORDERED: Phenylephrine 40 MG/NS 250 ML 250 ML IVPB PRN (16:37)
[2024-06-21] MEDS ORDERED: fentaNYL 50 mcg/mL 1 mL Vial ONE ×2 (16:45→17:11)
[2024-06-21] MEDS ORDERED: Albuterol 200 PUFF INH INH PRN (16:48)
[2024-06-21] MEDS ORDERED: Phenylephrine 40 MG/NS 250 ML 40 MG in Premix 1 BAG IVPB SCH (17:00)
[2024-06-21 17:49] VITALS: BP 142/60
[2024-06-21] MEDS: Sodium Chloride 0.9% 1,000 ML IV SCH (18:10)
[2024-06-21] MEDS: Clindamycin/D5W 900 MG in Premix 1 BAG IVPB SCH (18:11)
[2024-06-21] MEDS: Ipratropium/Albuterol 3 ML NEB NEB SCH (18:29)
[2024-06-21] MEDS: Gabapentin 300 MG CAP PO SCH (21:09)
[2024-06-21] MEDS: Atorvastatin Calcium 40 MG TAB PO SCH (21:10)
[2024-06-21] MEDS: busPIRone HCl 10 MG TAB PO SCH (21:11)
[2024-06-21] MEDS: hydrOXYzine 25 MG TAB PO SCH (21:11)
[2024-06-21] MEDS: Acetaminophen 325 MG TAB PO PRN (21:26)
[2024-06-22 05:44] VITALS: BMI 27.2
[2024-06-22] MEDS: Pantoprazole DR 40 MG TAB PO SCH (09:04)
[2024-06-22] MEDS: Aspirin Chewable 81 MG TAB PO SCH (09:04)
[2024-06-22] MEDS: Allopurinol 300 MG TAB PO SCH (09:05)
[2024-06-22 09:09] VITALS: TEMP 98.4
[2024-06-22] MEDS: Digoxin 0.125 MG TAB PO SCH (09:52)
[2024-06-22] MEDS: NIFEdipine XL 60 MG ER.TAB PO SCH (09:53)
== END 2024-06-22 10:45 | disposition home or self-care (01) | DRG 39 ==
LOC: SURG A 14:50 → CCU 17:27
PROVIDERS: ADMIT Thoracic Surgery (Cardiothoracic Vascular Surgery); ATTEND Thoracic Surgery (Cardiothoracic Vascular Surgery)
PROC: 03CJ0ZZ Extirpation of Matter from Left Common Carotid Artery, Open Approach (ICD-10-PCS; principal; 2024-06-21)
PROC: 03CN0ZZ Extirpation of Matter from Left External Carotid Artery, Open Approach (ICD-10-PCS; 2024-06-21)
PROC: 03CL0ZZ Extirpation of Matter from Left Internal Carotid Artery, Open Approach (ICD-10-PCS; 2024-06-21)
PROC: 03UL0KZ Supplement Left Internal Carotid Artery with Nonautologous Tissue Substitute, Open Approach (ICD-10-PCS; 2024-06-21)
DX: I65.22 Occlusion and stenosis of left carotid artery (principal); Z79.899 Other long term (current) drug therapy; E78.00 Pure hypercholesterolemia, unspecified; F32.A Depression, unspecified; M10.9 Gout, unspecified; J44.9 Chronic obstructive pulmonary disease, unspecified; M19.90 Unspecified osteoarthritis, unspecified site; K21.9 Gastro-esophageal reflux disease without esophagitis; Z98.890 Other specified postprocedural states
CPT/HCPCS: 94640; C1768; J1100; J2704; J3010; J3490; J7030; J7620

== ENCOUNTER 2024-06-23 14:45 | Inpatient (IN) | payer MEDICARE ==
[2024-06-23] MEDS ORDERED: Ipratropium/Albuterol 3 ML NEB NEB PRN (17:59)
[2024-06-23] MEDS ORDERED: Acetaminophen 325 MG TAB PO PRN (18:00)
[2024-06-23] MEDS ORDERED: Ondansetron PF 4 MG/2 ML Vial IVP PRN (18:00)
[2024-06-23] MEDS ORDERED: Ondansetron ODT 4 MG TAB SL PRN (18:00)
[2024-06-23] MEDS: Sodium Chloride 0.9% 1,000 ML IV SCH ×3 (18:38→20:57)
[2024-06-23 18:52] VITALS: BMI 27.4
[2024-06-23] MEDS ORDERED: traMADol HCl 50 MG TAB PO PRN (18:57)
[2024-06-23] MEDS: busPIRone HCl 10 MG TAB PO SCH (20:53)
[2024-06-23] MEDS: Gabapentin 300 MG CAP PO SCH (20:53)
[2024-06-23] MEDS: hydrOXYzine 25 MG TAB PO SCH (20:54)
[2024-06-23] MEDS: Atorvastatin Calcium 40 MG TAB PO SCH (20:54)
[2024-06-23] MEDS: methylPREDNISolone Sod Succ 40 MG VIAL IVP SCH (20:55)
[2024-06-23] MEDS: LOKELMA 10 GM PACKET PO SCH (20:56)
[2024-06-23] MEDS ORDERED: Heparin 5,000 UNITS/ML VIAL SC SCH (21:00)
[2024-06-24] MEDS: Cefepime 1 GM in Sodium Chloride 0.9% 100 ML IVPB SCH (00:29)
[2024-06-24] MEDS: Ipratropium/Albuterol 3 ML NEB NEB SCH (00:40)
[2024-06-24 05:13] LABS: Anion Gap 12 mmol/L (10-20); BUN (Urea Nitrogen) 42 mg/dL (9.8-20.1); Calc. Creatinine Clearance 31 mL/min (70-130); Calcium 7.9 mg/dL (7.8-10.44); Carbon Dioxide 18 mmol/L (23-31); Chloride 109 mmol/L (98-107); Estimated GFR 24; Glucose 154 mg/dL (80-115); Potassium 6.3 mmol/L (3.5-5.1); Sodium 133 mmol/L (136-145)
[2024-06-24] MEDS: Insulin Regular, Human 100 UNIT/ML 10 ML VIAL IVP SCH ×2 (05:36→21:18)
[2024-06-24] MEDS: Dextrose 50% Abboject 50 ML SYRINGE SLOW IVP PRN (05:38)
[2024-06-24] MEDS: LOKELMA 10 GM PACKET PO SCH ×4 (05:38→15:38)
[2024-06-24] MEDS: hydrALAZINE 20 MG/ML VIAL SLOW IVP PRN (05:49)
[2024-06-24] MEDS: Aspirin Chewable 81 MG TAB PO SCH (08:15)
[2024-06-24] MEDS: Digoxin 0.125 MG TAB PO SCH (08:15)
[2024-06-24] MEDS: NIFEdipine XL 60 MG ER.TAB PO SCH (08:15)
[2024-06-24] MEDS: Allopurinol 300 MG TAB PO SCH (08:16)
[2024-06-24] MEDS: Pantoprazole DR 40 MG TAB PO SCH (08:16)
[2024-06-24] MEDS: Metoprolol Tartrate 100 MG TAB PO SCH (08:17)
[2024-06-24 08:23] LABS: #Basophils Less than 0.03 10x3/uL (0.0-0.2); #Eosinophils Less than 0.03 10x3/uL (0.0-0.7); %Lymphocytes 5.9 % (21.0-51.0); %Monocytes 1.8 % (0.0-10.0); %Neutrophils 90.6 % (42.0-75.0); Hematocrit 27.7 % (36.0-47.0); Hemoglobin 8.5 g/dL (12.0-16.0); Mean Corpuscular HGB CONC 30.7 g/dL (32.0-36.0); Mean Corpuscular Hemoglobin 29.4 pg (27.0-31.0); Mean Corpuscular Volume 95.8 fL (78.0-98.0); Mean Platelet Volume 9.5 fL (7.4-10.4); Platelet Count 147 10x3/uL (130-400); RBC Distribution Width 15.9 % (11.5-14.5); Red Blood Cell (RBC) Count 2.89 mill/uL (4.20-5.40)
[2024-06-24] MEDS: Heparin 5,000 UNITS/ML VIAL SC SCH (08:24)
[2024-06-24] MEDS: Sodium Bicarb 50 MEQ/50 ML Abboject 8.4% SYRINGE IVP SCH (10:24)
[2024-06-24] MEDS: EPOETIN ALFA-EPBX (ESRD) 10,000 UNITS/ML VIAL SC SCH (13:01)
[2024-06-24] MEDS: Mometasone 100 MCG/Formoterol 5 MCG 120 PUFF INHALER INH SCH (16:07)
[2024-06-24 20:09] LABS: Anion Gap 12 mmol/L (10-20); BUN (Urea Nitrogen) 46 mg/dL (9.8-20.1); Calc. Creatinine Clearance 30 mL/min (70-130); Calcium 8.1 mg/dL (7.8-10.44); Carbon Dioxide 19 mmol/L (23-31); Chloride 109 mmol/L (98-107); Estimated GFR 24; Glucose 164 mg/dL (80-115); Potassium 5.9 mmol/L (3.5-5.1); Sodium 134 mmol/L (136-145)
[2024-06-24] MEDS: Dextrose 50% Abboject 50 ML SYRINGE SLOW IVP SCH (21:18)
[2024-06-25 03:53] LABS: #Basophils Less than 0.03 10x3/uL (0.0-0.2); #Eosinophils Less than 0.03 10x3/uL (0.0-0.7); %Basophils 0.1 % (0.0-1.0); %Lymphocytes 6.2 % (21.0-51.0); %Monocytes 1.6 % (0.0-10.0); %Neutrophils 91.2 % (42.0-75.0); Hematocrit 28.3 % (36.0-47.0); Hemoglobin 8.8 g/dL (12.0-16.0); Mean Corpuscular HGB CONC 31.1 g/dL (32.0-36.0); Mean Corpuscular Hemoglobin 29.2 pg (27.0-31.0); Mean Platelet Volume 10.7 fL (7.4-10.4); Platelet Count 163 10x3/uL (130-400); Red Blood Cell (RBC) Count 3.01 mill/uL (4.20-5.40)
[2024-06-25 04:06] LABS: Anion Gap 13 mmol/L (10-20); BUN (Urea Nitrogen) 48 mg/dL (9.8-20.1); Calc. Creatinine Clearance 29 mL/min (70-130); Calcium 8.4 mg/dL (7.8-10.44); Carbon Dioxide 19 mmol/L (23-31); Chloride 108 mmol/L (98-107); Estimated GFR 23; Glucose 160 mg/dL (80-115); Potassium 5.6 mmol/L (3.5-5.1); Sodium 134 mmol/L (136-145)
[2024-06-25] MEDS: LOKELMA 10 GM PACKET PO SCH ×2 (04:45→10:58)
[2024-06-25] MEDS: Sodium Bicarbonate 150 MEQ in Dextrose 5% in Water 1,000 ML IV SCH (10:58)
[2024-06-25] MEDS: HYDROcodone/Acetaminophen 5/325 mg Tablet PO PRN (20:34)
[2024-06-25] MEDS: hydrALAZINE 25 MG TAB PO SCH (22:06)
[2024-06-26 04:14] LABS: Anion Gap 13 mmol/L (10-20); BUN (Urea Nitrogen) 52 mg/dL (9.8-20.1); Calc. Creatinine Clearance 38 mL/min (70-130); Calcium 8.4 mg/dL (7.8-10.44); Carbon Dioxide 21 mmol/L (23-31); Chloride 106 mmol/L (98-107); Estimated GFR 32; Glucose 193 mg/dL (80-115); Potassium 4.5 mmol/L (3.5-5.1); Sodium 135 mmol/L (136-145)
[2024-06-26] MEDS: hydrALAZINE 20 MG/ML VIAL SLOW IVP SCH (05:43)
[2024-06-26] MEDS: predniSONE 20 MG TAB PO SCH (08:46)
[2024-06-26] MEDS: Ondansetron PF 4 MG/2 ML Vial IVP PRN (09:50)
[2024-06-26] MEDS: Azithromycin 250 MG TAB PO SCH (13:00)
[2024-06-26] MEDS: Sodium Bicarbonate Tab 325 MG TAB PO SCH (14:52)
[2024-06-27 04:13] LABS: Anion Gap 13 mmol/L (10-20); BUN (Urea Nitrogen) 59 mg/dL (9.8-20.1); Calc. Creatinine Clearance 42 mL/min (70-130); Calcium 8.4 mg/dL (7.8-10.44); Carbon Dioxide 21 mmol/L (23-31); Chloride 105 mmol/L (98-107); Estimated GFR 35; Glucose 119 mg/dL (80-115); Potassium 4.5 mmol/L (3.5-5.1); Sodium 134 mmol/L (136-145)
[2024-06-27] MEDS: Azithromycin 250 MG TAB PO SCH (08:10)
[2024-06-27] MEDS: hydrALAZINE 25 MG TAB PO PRN (09:32)
[2024-06-27 12:17] VITALS: TEMP 97.8
[2024-06-27 13:12] VITALS: BP 179/77
== END 2024-06-27 14:10 | disposition home or self-care (01) | DRG 682 ==
LOC: INTOOBSV 17:30 → PCU 17:30 → OBSVTOIN 06-24 13:53
PROVIDERS: ADMIT Internal Medicine; ATTEND Internal Medicine
DX: N17.9 Acute kidney failure, unspecified (principal); J18.9 Pneumonia, unspecified organism; J96.01 Acute respiratory failure with hypoxia; E87.20 Acidosis, unspecified; I13.0 Hypertensive heart and chronic kidney disease with heart failure and stage 1 through stage 4 chronic kidney disease, or unspecified chronic kidney disease; I50.32 Chronic diastolic (congestive) heart failure; J44.1 Chronic obstructive pulmonary disease with (acute) exacerbation; E87.1 Hypo-osmolality and hyponatremia; Z88.0 Allergy status to penicillin; Z88.8 Allergy status to other drugs, medicaments and biological substances; Z79.82 Long term (current) use of aspirin; Z79.899 Other long term (current) drug therapy; N18.30 Chronic kidney disease, stage 3 unspecified; K21.9 Gastro-esophageal reflux disease without esophagitis; Z90.710 Acquired absence of both cervix and uterus; F32.A Depression, unspecified; Z98.890 Other specified postprocedural states; E86.0 Dehydration; M10.9 Gout, unspecified; E87.5 Hyperkalemia
CPT/HCPCS: 36415; 36416; 71045; 80048; 85025; 93970; 94640; 96372; 96375; 96376; G0378; J0360; J0692; J1644; J1815; J2405; J2919; J7030; J7070; J7512; J7620; J7999; Q5105

== ENCOUNTER 2024-08-09 13:39 | Inpatient (IN) | payer MEDICARE ==
[2024-08-09 14:23] LABS: #Basophils 0.06 10x3/uL (0.0-0.2); #Eosinophils Less than 0.03 10x3/uL (0.0-0.7); %Basophils 0.9 % (0.0-1.0); %Lymphocytes 16.1 % (21.0-51.0); %Monocytes 6.7 % (0.0-10.0); %Neutrophils 75.4 % (42.0-75.0); Hematocrit 36.1 % (36.0-47.0); Hemoglobin 11.3 g/dL (12.0-16.0); Mean Corpuscular HGB CONC 31.3 g/dL (32.0-36.0); Mean Corpuscular Hemoglobin 28.9 pg (27.0-31.0); Mean Corpuscular Volume 92.3 fL (78.0-98.0); Mean Platelet Volume 9.7 fL (7.4-10.4); Platelet Count 200 10x3/uL (130-400); Red Blood Cell (RBC) Count 3.91 mill/uL (4.20-5.40)
[2024-08-09 14:34] LABS: Lipase 34 U/L (8-78)
[2024-08-09 14:36] LABS: Acetaminophen Less than 10 mcg/mL (Less than 10); Alcohol Less than 10.0 mg/dL (Less than 10); Salicylate Less than 8.0 mg/dL (Less than 8.0)
[2024-08-09 14:38] LABS: ALT (SGPT) 6 U/L (8-55); AST (SGOT) 16 U/L (5-34); Albumin 3.1 g/dL (3.4-4.8); Alkaline Phosphatase 85 U/L (40-110); Anion Gap 11 mmol/L (10-20); BUN (Urea Nitrogen) 38 mg/dL (9.8-20.1); Bilirubin, Total 0.3 mg/dL (0.2-1.2); Calc. Creatinine Clearance 0 mL/min (70-130); Calcium 8.9 mg/dL (7.8-10.44); Carbon Dioxide 28 mmol/L (23-31); Chloride 104 mmol/L (98-107); Estimated GFR 23; Globulin 3.8 g/dL (2.4-3.5); Glucose 120 mg/dL (80-115); Magnesium 1.8 mg/dL (1.6-2.6); Potassium 4.6 mmol/L (3.5-5.1); Protein, Total 6.9 g/dL (5.8-8.1); Sodium 138 mmol/L (136-145)
[2024-08-09 14:41] LABS: Troponin I 0.053 ng/mL (< 0.028)
[2024-08-09] MEDS ORDERED: Acetaminophen 650 MG Suppository PR PRN (17:06)
[2024-08-09] MEDS ORDERED: LevoFLOXacin 750 mg/D5W 150 ml Premix Bag ONE (17:32)
[2024-08-09 17:58] LABS: Troponin I 0.053 ng/mL (< 0.028)
[2024-08-09 19:17] LABS: Pleural Fluid, Amylase Less than 30 U/L (Not Available); Pleural Fluid, Glucose 121 mg/dL; Pleural Fluid, LDH 49 U/L (Not Available); Pleural Fluid, Protein 1.4 g/dL
[2024-08-09 19:42] LABS: RBC Count-Automated (BF) 0 /cu.mm; WBC/Nucleated-Auto (BF) 0 /cu.mm
[2024-08-09 19:44] LABS: Body Fluid Source Thoracentesis Fluid
[2024-08-09 19:45] LABS: BF Color Colorless; Clarity Clear (Clear); Tube # 3
[2024-08-09 20:39] LABS: Troponin I 0.042 ng/mL (< 0.028)
[2024-08-09] MEDS: Morphine 2 MG/ML VIAL SLOW IVP SCH (22:49)
[2024-08-10 03:14] LABS: Fluid, pH - Pleural Fld Greater than 7.500 (7.60 - 7.66)
[2024-08-10 05:09] LABS: #Basophils Less than 0.03 10x3/uL (0.0-0.2); #Eosinophils Less than 0.03 10x3/uL (0.0-0.7); %Basophils 0.4 % (0.0-1.0); %Lymphocytes 22.6 % (21.0-51.0); %Monocytes 8.6 % (0.0-10.0); Hematocrit 31.4 % (36.0-47.0); Hemoglobin 9.9 g/dL (12.0-16.0); Mean Corpuscular HGB CONC 31.5 g/dL (32.0-36.0); Mean Corpuscular Hemoglobin 29.1 pg (27.0-31.0); Mean Corpuscular Volume 92.4 fL (78.0-98.0); Mean Platelet Volume 9.3 fL (7.4-10.4); Platelet Count 145 10x3/uL (130-400); RBC Distribution Width 13.9 % (11.5-14.5)
[2024-08-10 05:37] LABS: Anion Gap 11 mmol/L (10-20); BUN (Urea Nitrogen) 35 mg/dL (9.8-20.1); Calc. Creatinine Clearance 33 mL/min (70-130); Calcium 8.1 mg/dL (7.8-10.44); Carbon Dioxide 26 mmol/L (23-31); Chloride 106 mmol/L (98-107); Estimated GFR 26; Glucose 87 mg/dL (80-115); Potassium 4.6 mmol/L (3.5-5.1); Sodium 138 mmol/L (136-145)
[2024-08-10] MEDS ORDERED: Ipratropium/Albuterol 3 ML NEB NEB PRN (08:07)
[2024-08-10] MEDS: LevoFLOXacin 750 mg/D5W 750 MG in Premix 1 BAG IVPB SCH (08:11)
[2024-08-10] MEDS: hydrALAZINE 25 MG TAB PO PRN (09:32)
[2024-08-10] MEDS: NIFEdipine XL 90 MG ER.TAB PO SCH (09:33)
[2024-08-10] MEDS ORDERED: Famotidine 20 MG TAB PO PRN (14:53)
[2024-08-10] MEDS ORDERED: Furosemide 20 MG TAB PO PRN (14:53)
[2024-08-10] MEDS: Sodium Bicarbonate Tab 325 MG TAB PO SCH (19:39)
[2024-08-10] MEDS: Gabapentin 300 MG CAP PO SCH (20:55)
[2024-08-10] MEDS: busPIRone HCl 10 MG TAB PO SCH (20:55)
[2024-08-10] MEDS: hydrALAZINE 25 MG TAB PO SCH (20:56)
[2024-08-10] MEDS: traZODone HCl 50 MG TAB PO SCH (20:57)
[2024-08-10] MEDS: Atorvastatin Calcium 40 MG TAB PO SCH (20:58)
[2024-08-11] MEDS: Ondansetron PF 4 MG/2 ML Vial IVP PRN (00:51)
[2024-08-11 04:58] LABS: #Basophils Less than 0.03 10x3/uL (0.0-0.2); #Eosinophils Less than 0.03 10x3/uL (0.0-0.7); %Basophils 0.5 % (0.0-1.0); %Lymphocytes 19.6 % (21.0-51.0); %Monocytes 7.6 % (0.0-10.0); %Neutrophils 71.4 % (42.0-75.0); Hematocrit 33.7 % (36.0-47.0); Hemoglobin 10.4 g/dL (12.0-16.0); Mean Corpuscular HGB CONC 30.9 g/dL (32.0-36.0); Mean Corpuscular Hemoglobin 28.7 pg (27.0-31.0); Mean Corpuscular Volume 93.1 fL (78.0-98.0); Mean Platelet Volume 9.9 fL (7.4-10.4); Platelet Count 157 10x3/uL (130-400); Red Blood Cell (RBC) Count 3.62 mill/uL (4.20-5.40)
[2024-08-11 05:18] LABS: Anion Gap 11 mmol/L (10-20); BUN (Urea Nitrogen) 33 mg/dL (9.8-20.1); Calc. Creatinine Clearance 39 mL/min (70-130); Calcium 8.4 mg/dL (7.8-10.44); Carbon Dioxide 27 mmol/L (23-31); Chloride 106 mmol/L (98-107); Estimated GFR 32; Glucose 93 mg/dL (80-115); Potassium 4.6 mmol/L (3.5-5.1); Sodium 139 mmol/L (136-145)
[2024-08-11] MEDS: Promethazine HCl 25 MG in Sodium Chloride 0.9% 50 ML IVPB SCH (05:23)
[2024-08-11] MEDS ORDERED: Linaclotide [Linzess] 145 MCG Capsule PO SCH (07:30)
[2024-08-11] MEDS: Furosemide 20 MG (2 mL) VIAL SLOW IVP SCH (10:17)
[2024-08-11] MEDS: DULoxetine 30 MG CAP PO SCH (10:20)
[2024-08-11] MEDS: Metoprolol Tartrate 50 MG TAB PO SCH (10:20)
[2024-08-11] MEDS: Allopurinol 300 MG TAB PO SCH (10:23)
[2024-08-11] MEDS: Digoxin 0.125 MG TAB PO SCH (10:23)
[2024-08-11] MEDS: Pantoprazole 40 MG DR.TAB PO SCH (10:23)
[2024-08-11] MEDS: Sertraline 25 MG TAB PO SCH (10:23)
[2024-08-11] MEDS: LevoFLOXacin 750 mg/D5W 750 MG in Premix 1 BAG IVPB SCH (16:52)
[2024-08-11] MEDS: Heparin 5,000 UNITS/ML VIAL SC SCH (21:10)
[2024-08-12 05:40] LABS: #Basophils Less than 0.03 10x3/uL (0.0-0.2); #Eosinophils Less than 0.03 10x3/uL (0.0-0.7); %Basophils 0.4 % (0.0-1.0); %Monocytes 9.5 % (0.0-10.0); %Neutrophils 66.4 % (42.0-75.0); Hematocrit 32.2 % (36.0-47.0); Hemoglobin 9.9 g/dL (12.0-16.0); Mean Corpuscular HGB CONC 30.7 g/dL (32.0-36.0); Mean Corpuscular Hemoglobin 29.1 pg (27.0-31.0); Mean Corpuscular Volume 94.7 fL (78.0-98.0); Mean Platelet Volume 9.5 fL (7.4-10.4); Platelet Count 143 10x3/uL (130-400); RBC Distribution Width 14.1 % (11.5-14.5)
[2024-08-12 05:54] LABS: Calc. Creatinine Clearance 29 mL/min (70-130); Estimated GFR 22
[2024-08-12 05:55] LABS: Anion Gap 10 mmol/L (10-20); BUN (Urea Nitrogen) 38 mg/dL (9.8-20.1); Calcium 8.4 mg/dL (7.8-10.44); Carbon Dioxide 27 mmol/L (23-31); Chloride 104 mmol/L (98-107); Glucose 108 mg/dL (80-115); Potassium 5.2 mmol/L (3.5-5.1); Sodium 136 mmol/L (136-145)
[2024-08-12] MEDS: Sodium Polystyrene Sulfonate 15 GM (60 mL) BOT PO SCH (10:11)
[2024-08-12] MEDS: Furosemide 20 MG (2 mL) VIAL SLOW IVP SCH ×2 (10:11→15:48)
[2024-08-12] MEDS: NIFEdipine XL 60 MG ER.TAB PO SCH (10:12)
[2024-08-12 14:28] LABS: RBC Count-Automated (BF) 792 /cu.mm; WBC/Nucleated-Auto (BF) 1098 /cu.mm
[2024-08-12 14:29] LABS: Fluid, Triglycerides 24 mg/dL (Not Available); Pleural Fluid, Amylase Less than 30 U/L (Not Available); Pleural Fluid, Glucose 133 mg/dL; Pleural Fluid, LDH 98 U/L (Not Available); Pleural Fluid, Protein 1.6 g/dL
[2024-08-12 14:32] LABS: BF Color Yellow; Body Fluid Source Thoracentesis Fluid; Clarity Hazy (Clear); Tube # EDTA
[2024-08-12 14:42] LABS: Fluid, pH - Pleural Fld Greater than 7.500 (7.60 - 7.66)
[2024-08-12 14:54] LABS: BF Segmented Neutrophils 18 %; Cell Count Non Hematic 51 %; Lymphocytes 31 %
[2024-08-12] MEDS: Furosemide 40 MG (4 mL) VIAL SLOW IVP SCH (17:47)
[2024-08-13 05:24] LABS: #Basophils Less than 0.03 10x3/uL (0.0-0.2); #Eosinophils Less than 0.03 10x3/uL (0.0-0.7); %Basophils 0.4 % (0.0-1.0); %Lymphocytes 16.2 % (21.0-51.0); %Monocytes 9.1 % (0.0-10.0); %Neutrophils 73.3 % (42.0-75.0); Hematocrit 32.2 % (36.0-47.0); Mean Corpuscular HGB CONC 31.1 g/dL (32.0-36.0); Mean Corpuscular Hemoglobin 29.2 pg (27.0-31.0); Mean Corpuscular Volume 93.9 fL (78.0-98.0); Platelet Count 153 10x3/uL (130-400); RBC Distribution Width 13.9 % (11.5-14.5); Red Blood Cell (RBC) Count 3.43 mill/uL (4.20-5.40)
[2024-08-13 05:42] LABS: Anion Gap 11 mmol/L (10-20); BUN (Urea Nitrogen) 39 mg/dL (9.8-20.1); Calc. Creatinine Clearance 27 mL/min (70-130); Calcium 8.1 mg/dL (7.8-10.44); Carbon Dioxide 29 mmol/L (23-31); Chloride 101 mmol/L (98-107); Estimated GFR 20; Glucose 115 mg/dL (80-115); Potassium 5.1 mmol/L (3.5-5.1); Sodium 136 mmol/L (136-145)
[2024-08-13] MEDS: Acetaminophen 325 MG TAB PO PRN (08:35)
[2024-08-13] MEDS: NIFEdipine XL 90 MG ER.TAB PO SCH (08:37)
[2024-08-13 11:19] LABS: Actual Bicarbonate (HCO3a) 30.7 mEq/L (22-28); Base Excess (BEa) 2.8 mEq/L (-2.0 to +3.0); Calcium, Ionized (arterial) 1.17 mmol/L (1.12-1.30); Carboxyhemoglobin (COHb) 0.6 gm% (0.0-3.0); Hematocrit-ABG 34 % (36.0-47.0); Hemoglobin (Hb) 11.4 g/dL (12.0-16.0); Potassium - ABG Lab 4.78 mmol/L (3.70-5.30)
[2024-08-13 11:21] LABS: CO2 Tension 65.4 mmHg (35.0-45.0); O2 Tension (PaO2), arterial 59.1 mmHg (> 70.0)
[2024-08-13 11:22] LABS: Puncture Site Left Radial artery
[2024-08-13] MEDS: LOKELMA 10 GM PACKET PO SCH (13:47)
[2024-08-13 17:07] LABS: Digoxin 1.68 ng/mL (0.8-2.0)
[2024-08-13] MEDS: Metolazone 2.5 MG TAB PO SCH (17:20)
[2024-08-13] MEDS: Furosemide 40 MG (4 mL) VIAL SLOW IVP SCH (17:20)
[2024-08-13] MEDS: Gabapentin 100 MG CAP PO SCH (21:33)
[2024-08-13] MEDS: Metoprolol Tartrate 25 MG TAB PO SCH (21:34)
[2024-08-14] MEDS: Allopurinol 100 MG TAB PO SCH (09:27)
[2024-08-14 13:20] LABS: Calcium 8.3 mg/dL (7.8-10.44); Phosphorus 3.7 mg/dL (2.3-4.7)
[2024-08-14 13:21] LABS: Anion Gap 9 mmol/L (10-20); BUN (Urea Nitrogen) 42 mg/dL (9.8-20.1); Calc. Creatinine Clearance 33 mL/min (70-130); Calcium 8.3 mg/dL (7.8-10.44); Carbon Dioxide 34 mmol/L (23-31); Chloride 96 mmol/L (98-107); Estimated GFR 26; Glucose 125 mg/dL (80-115); Magnesium 1.4 mg/dL (1.6-2.6); Potassium 4.1 mmol/L (3.5-5.1); Sodium 135 mmol/L (136-145)
[2024-08-15 04:57] LABS: #Basophils Less than 0.03 10x3/uL (0.0-0.2); #Eosinophils Less than 0.03 10x3/uL (0.0-0.7); %Basophils 0.2 % (0.0-1.0); %Lymphocytes 19.1 % (21.0-51.0); %Monocytes 10.1 % (0.0-10.0); Hematocrit 30.9 % (36.0-47.0); Hemoglobin 9.4 g/dL (12.0-16.0); Mean Corpuscular HGB CONC 30.4 g/dL (32.0-36.0); Mean Corpuscular Hemoglobin 28.6 pg (27.0-31.0); Mean Corpuscular Volume 93.9 fL (78.0-98.0); Mean Platelet Volume 10.3 fL (7.4-10.4); Platelet Count 144 10x3/uL (130-400); RBC Distribution Width 13.9 % (11.5-14.5); Red Blood Cell (RBC) Count 3.29 mill/uL (4.20-5.40)
[2024-08-15 05:11] LABS: Anion Gap 12 mmol/L (10-20); BUN (Urea Nitrogen) 47 mg/dL (9.8-20.1); Calc. Creatinine Clearance 30 mL/min (70-130); Carbon Dioxide 31 mmol/L (23-31); Chloride 98 mmol/L (98-107); Potassium 4.3 mmol/L (3.5-5.1); Sodium 137 mmol/L (136-145)
[2024-08-15 05:12] LABS: Calcium 8.2 mg/dL (7.8-10.44); Estimated GFR 23; Glucose 102 mg/dL (80-115)
[2024-08-15] MEDS: Furosemide 40 MG (4 mL) VIAL SLOW IVP SCH (16:04)
[2024-08-15] MEDS: traZODone HCl 50 MG TAB PO PRN (21:24)
[2024-08-16 04:39] LABS: Anion Gap 12 mmol/L (10-20); BUN (Urea Nitrogen) 49 mg/dL (9.8-20.1); Calc. Creatinine Clearance 32 mL/min (70-130); Calcium 8.2 mg/dL (7.8-10.44); Carbon Dioxide 32 mmol/L (23-31); Chloride 94 mmol/L (98-107); Estimated GFR 25; Glucose 102 mg/dL (80-115); Potassium 4.1 mmol/L (3.5-5.1); Sodium 134 mmol/L (136-145)
[2024-08-16] MEDS: Acetaminophen/Codeine 30-300mg Tablet PO PRN (16:05)
[2024-08-16] MEDS: Senokot S 8.6-50 MG TAB PO PRN (20:45)
[2024-08-17 04:03] LABS: #Basophils Less than 0.03 10x3/uL (0.0-0.2); #Eosinophils Less than 0.03 10x3/uL (0.0-0.7); %Basophils 0.4 % (0.0-1.0); %Lymphocytes 16.2 % (21.0-51.0); %Monocytes 11.6 % (0.0-10.0); %Neutrophils 71.2 % (42.0-75.0); Hematocrit 27.9 % (36.0-47.0); Mean Corpuscular HGB CONC 32.3 g/dL (32.0-36.0); Mean Corpuscular Hemoglobin 28.9 pg (27.0-31.0); Mean Corpuscular Volume 89.7 fL (78.0-98.0); Mean Platelet Volume 9.8 fL (7.4-10.4); Platelet Count 123 10x3/uL (130-400); RBC Distribution Width 13.5 % (11.5-14.5); Red Blood Cell (RBC) Count 3.11 mill/uL (4.20-5.40)
[2024-08-17 04:23] LABS: Anion Gap 12 mmol/L (10-20); BUN (Urea Nitrogen) 55 mg/dL (9.8-20.1); Calc. Creatinine Clearance 29 mL/min (70-130); Calcium 8.4 mg/dL (7.8-10.44); Carbon Dioxide 32 mmol/L (23-31); Chloride 93 mmol/L (98-107); Estimated GFR 22; Glucose 108 mg/dL (80-115); Potassium 4.2 mmol/L (3.5-5.1); Sodium 133 mmol/L (136-145)
[2024-08-17] MEDS: Furosemide 20 MG TAB PO SCH (10:21)
[2024-08-17] MEDS: Bisacodyl 5 MG TAB PO PRN (15:15)
[2024-08-18 06:59] LABS: Anion Gap 13 mmol/L (10-20); BUN (Urea Nitrogen) 57 mg/dL (9.8-20.1); Calc. Creatinine Clearance 32 mL/min (70-130); Calcium 8.7 mg/dL (7.8-10.44); Carbon Dioxide 33 mmol/L (23-31); Chloride 89 mmol/L (98-107); Estimated GFR 25; Glucose 104 mg/dL (80-115); Magnesium 1.2 mg/dL (1.6-2.6); Sodium 131 mmol/L (136-145)
[2024-08-18 07:29] VITALS: BMI 26.4
[2024-08-18 14:04] LABS: Troponin I 0.026 ng/mL (< 0.028)
[2024-08-18] MEDS: Furosemide 40 MG TAB PO SCH (14:56)
[2024-08-18] MEDS: hydrALAZINE 25 MG TAB PO SCH (20:38)
[2024-08-18] MEDS: Ondansetron ODT 4 MG TAB PO PRN (22:35)
[2024-08-19 05:32] LABS: Anion Gap 13 mmol/L (10-20); BUN (Urea Nitrogen) 53 mg/dL (9.8-20.1); Calc. Creatinine Clearance 34 mL/min (70-130); Calcium 8.8 mg/dL (7.8-10.44); Carbon Dioxide 33 mmol/L (23-31); Chloride 89 mmol/L (98-107); Estimated GFR 29; Glucose 101 mg/dL (80-115); Sodium 131 mmol/L (136-145)
[2024-08-19] MEDS: Amlodipine 5 MG TAB PO SCH (18:34)
[2024-08-19] MEDS: hydrALAZINE 20 MG/ML VIAL SLOW IVP PRN (22:10)
[2024-08-20 06:09] LABS: Anion Gap 10 mmol/L (10-20); BUN (Urea Nitrogen) 55 mg/dL (9.8-20.1); Calc. Creatinine Clearance 31 mL/min (70-130); Calcium 8.9 mg/dL (7.8-10.44); Carbon Dioxide 35 mmol/L (23-31); Chloride 90 mmol/L (98-107); Estimated GFR 28; Glucose 105 mg/dL (80-115); Potassium 4.3 mmol/L (3.5-5.1); Sodium 131 mmol/L (136-145)
[2024-08-20] MEDS ORDERED: Ondansetron ODT 8 MG TAB SL PRN (09:34)
[2024-08-20] MEDS ORDERED: Ondansetron PF 4 MG/2 ML Vial ONE (13:15)
[2024-08-20] MEDS ORDERED: Vancomycin HCl 500 MG VIAL ONE (13:19)
[2024-08-21 05:18] LABS: #Basophils Less than 0.03 10x3/uL (0.0-0.2); #Eosinophils Less than 0.03 10x3/uL (0.0-0.7); %Basophils 0.4 % (0.0-1.0); %Lymphocytes 17.5 % (21.0-51.0); %Monocytes 11.5 % (0.0-10.0); %Neutrophils 69.8 % (42.0-75.0); Hematocrit 29.3 % (36.0-47.0); Hemoglobin 9.3 g/dL (12.0-16.0); Mean Corpuscular HGB CONC 31.7 g/dL (32.0-36.0); Mean Corpuscular Hemoglobin 28.4 pg (27.0-31.0); Mean Corpuscular Volume 89.3 fL (78.0-98.0); Mean Platelet Volume 10.4 fL (7.4-10.4); Platelet Count 164 10x3/uL (130-400); RBC Distribution Width 13.2 % (11.5-14.5); Red Blood Cell (RBC) Count 3.28 mill/uL (4.20-5.40)
[2024-08-21 05:31] LABS: Anion Gap 11 mmol/L (10-20); BUN (Urea Nitrogen) 52 mg/dL (9.8-20.1); Calc. Creatinine Clearance 33 mL/min (70-130); Calcium 8.6 mg/dL (7.8-10.44); Carbon Dioxide 33 mmol/L (23-31); Chloride 92 mmol/L (98-107); Estimated GFR 31; Glucose 98 mg/dL (80-115); Potassium 4.4 mmol/L (3.5-5.1); Sodium 132 mmol/L (136-145)
[2024-08-21 14:12] LABS: Magnesium 1.3 mg/dL (1.6-2.6)
[2024-08-22 04:13] LABS: #Basophils Less than 0.03 10x3/uL (0.0-0.2); #Eosinophils Less than 0.03 10x3/uL (0.0-0.7); %Basophils 0.4 % (0.0-1.0); %Lymphocytes 19.3 % (21.0-51.0); %Monocytes 11.9 % (0.0-10.0); %Neutrophils 67.4 % (42.0-75.0); Hematocrit 29.2 % (36.0-47.0); Hemoglobin 9.3 g/dL (12.0-16.0); Mean Corpuscular HGB CONC 31.8 g/dL (32.0-36.0); Mean Corpuscular Hemoglobin 28.4 pg (27.0-31.0); Mean Corpuscular Volume 89.3 fL (78.0-98.0); Mean Platelet Volume 10.3 fL (7.4-10.4); Platelet Count 144 10x3/uL (130-400); RBC Distribution Width 13.2 % (11.5-14.5); Red Blood Cell (RBC) Count 3.27 mill/uL (4.20-5.40)
[2024-08-22 04:33] LABS: Anion Gap 12 mmol/L (10-20); BUN (Urea Nitrogen) 57 mg/dL (9.8-20.1); Calc. Creatinine Clearance 32 mL/min (70-130); Calcium 8.8 mg/dL (7.8-10.44); Carbon Dioxide 34 mmol/L (23-31); Chloride 91 mmol/L (98-107); Estimated GFR 30; Glucose 116 mg/dL (80-115); Potassium 4.2 mmol/L (3.5-5.1); Sodium 133 mmol/L (136-145)
[2024-08-22] MEDS: Magnesium Sulfate In Water 4 GM in Premix 1 BAG IVPB SCH (13:09)
[2024-08-23 04:45] LABS: #Basophils 0.03 10x3/uL (0.0-0.2); #Eosinophils Less than 0.03 10x3/uL (0.0-0.7); %Basophils 0.6 % (0.0-1.0); %Lymphocytes 21.9 % (21.0-51.0); %Monocytes 11.2 % (0.0-10.0); %Neutrophils 65.5 % (42.0-75.0); Hematocrit 28.6 % (36.0-47.0); Hemoglobin 8.8 g/dL (12.0-16.0); Mean Corpuscular HGB CONC 30.8 g/dL (32.0-36.0); Mean Corpuscular Hemoglobin 27.9 pg (27.0-31.0); Mean Corpuscular Volume 90.8 fL (78.0-98.0); Mean Platelet Volume 10.3 fL (7.4-10.4); Platelet Count 149 10x3/uL (130-400); RBC Distribution Width 13.2 % (11.5-14.5); Red Blood Cell (RBC) Count 3.15 mill/uL (4.20-5.40)
[2024-08-23 05:20] LABS: Anion Gap 9 mmol/L (10-20); BUN (Urea Nitrogen) 55 mg/dL (9.8-20.1); Calc. Creatinine Clearance 34 mL/min (70-130); Calcium 8.8 mg/dL (7.8-10.44); Carbon Dioxide 34 mmol/L (23-31); Chloride 93 mmol/L (98-107); Estimated GFR 33; Glucose 112 mg/dL (80-115); Potassium 4.1 mmol/L (3.5-5.1); Sodium 132 mmol/L (136-145)
[2024-08-23] MEDS ORDERED: Magnesium Oxide 400 MG TAB PO SCH (09:00)
[2024-08-23 10:07] LABS: Magnesium 1.8 mg/dL (1.6-2.6)
[2024-08-23 14:14] VITALS: BMI 24.1
[2024-08-23 15:18] VITALS: TEMP 98
[2024-08-23] MEDS: Magnesium Oxide 400 MG TAB PO SCH (15:18)
[2024-08-23 15:31] VITALS: BP 106/61
[2024-08-24] MEDS ORDERED: Magnesium Oxide 400 MG TAB PO SCH (09:00)
== END 2024-08-23 18:53 | DRG 242 ==
LOC: ERS 13:39 → ERHOLD 16:42 → OBS 21:11 → OBSVTOIN 08-10 15:25 → IMCU/EMU 08-13 10:59 → 2NO 08-21 15:48
PROVIDERS: ADMIT Family Medicine; ATTEND Internal Medicine
PROC: 0JH606Z Insertion of Pacemaker, Dual Chamber into Chest Subcutaneous Tissue and Fascia, Open Approach (ICD-10-PCS; principal; 2024-08-20)
PROC: 02H63JZ Insertion of Pacemaker Lead into Right Atrium, Percutaneous Approach (ICD-10-PCS; 2024-08-20)
PROC: 02HK3JZ Insertion of Pacemaker Lead into Right Ventricle, Percutaneous Approach (ICD-10-PCS; 2024-08-20)
PROC: 0W9B3ZZ Drainage of Left Pleural Cavity, Percutaneous Approach (ICD-10-PCS; 2024-08-20)
PROC: 5A09357 Assistance with Respiratory Ventilation, Less than 24 Consecutive Hours, Continuous Positive Airway Pressure (ICD-10-PCS; 2024-08-20)
DX: I13.0 Hypertensive heart and chronic kidney disease with heart failure and stage 1 through stage 4 chronic kidney disease, or unspecified chronic kidney disease (principal); G93.41 Metabolic encephalopathy; I50.33 Acute on chronic diastolic (congestive) heart failure; J96.21 Acute and chronic respiratory failure with hypoxia; J96.22 Acute and chronic respiratory failure with hypercapnia; J18.9 Pneumonia, unspecified organism; E87.3 Alkalosis; J90 Pleural effusion, not elsewhere classified; N17.9 Acute kidney failure, unspecified; N18.4 Chronic kidney disease, stage 4 (severe); E87.1 Hypo-osmolality and hyponatremia; E44.0 Moderate protein-calorie malnutrition; E11.9 Type 2 diabetes mellitus without complications; F32.A Depression, unspecified; R62.7 Adult failure to thrive; E78.5 Hyperlipidemia, unspecified; G47.33 Obstructive sleep apnea (adult) (pediatric); I73.9 Peripheral vascular disease, unspecified; I25.10 Atherosclerotic heart disease of native coronary artery without angina pectoris; D64.9 Anemia, unspecified; K21.9 Gastro-esophageal reflux disease without esophagitis; K44.9 Diaphragmatic hernia without obstruction or gangrene; I48.0 Paroxysmal atrial fibrillation; E83.42 Hypomagnesemia; N18.9 Chronic kidney disease, unspecified; J44.9 Chronic obstructive pulmonary disease, unspecified; Z88.0 Allergy status to penicillin; Z88.8 Allergy status to other drugs, medicaments and biological substances; Z90.79 Acquired absence of other genital organ(s); Z72.0 Tobacco use; Z79.899 Other long term (current) drug therapy; Z85.828 Personal history of other malignant neoplasm of skin; Z90.49 Acquired absence of other specified parts of digestive tract; Z82.49 Family history of ischemic heart disease and other diseases of the circulatory system; Z95.0 Presence of cardiac pacemaker; Z79.01 Long term (current) use of anticoagulants; Z91.81 History of falling; Z68.26 Body mass index [BMI] 26.0-26.9, adult
CPT/HCPCS: 33208; 36415; 36600; 71045; 71250; 76770; 80048; 80053; 80162; 80307; 82140; 82150; 82805; 82945; 83615; 83690; 83735; 83880; 83986; 84100; 84145; 84157; 84443; 84478; 84484; 85025; 85060; 86141; 87040; 87070; 87102; 87116; 87205; 87206; 88112; 88184; 88185; 88305; 89051; 93005; 93010; 93306; 94660; 94760; 96365; 96375; C1785; C1898; G0378; J0360; J1644; J1940; J1956; J2272; J2405; J2550; J3370; J3475; Q0162

== ENCOUNTER 2024-08-27 23:28 | Observation (INO) | payer MEDICARE ==
[2024-08-28 00:02] LABS: #Basophils 0.04 10x3/uL (0.0-0.2); #Eosinophils Less than 0.03 10x3/uL (0.0-0.7); %Basophils 0.5 % (0.0-1.0); %Monocytes 8.2 % (0.0-10.0); %Neutrophils 73.1 % (42.0-75.0); Hematocrit 30.3 % (36.0-47.0); Hemoglobin 9.8 g/dL (12.0-16.0); Mean Corpuscular HGB CONC 32.3 g/dL (32.0-36.0); Mean Corpuscular Hemoglobin 28.8 pg (27.0-31.0); Mean Corpuscular Volume 89.1 fL (78.0-98.0); Mean Platelet Volume 9.7 fL (7.4-10.4); Platelet Count 197 10x3/uL (130-400); RBC Distribution Width 13.2 % (11.5-14.5)
[2024-08-28 00:22] LABS: ALT (SGPT) 8 U/L (Less than 34); AST (SGOT) 21 U/L (11-34); Albumin 2.7 g/dL (3.1-4.5); Alkaline Phosphatase 71 U/L (40-110); Anion Gap 13 mmol/L (10-20); BUN (Urea Nitrogen) 50 mg/dL (9.8-20.1); Bilirubin, Total 0.2 mg/dL (0.3-1.2); CK (CPK) 22 U/L (29-168); Calc. Creatinine Clearance 0 mL/min (70-130); Carbon Dioxide 26 mmol/L (23-31); Chloride 100 mmol/L (98-107); Estimated GFR 34; Globulin 3.4 g/dL (2.4-3.5); Glucose 108 mg/dL (80-115); Magnesium 1.7 mg/dL (1.6-2.6); Potassium 4.3 mmol/L (3.5-5.1); Protein, Total 6.1 g/dL (5.8-8.1); Sodium 135 mmol/L (136-145)
[2024-08-28] MEDS ORDERED: levETIRAcetam 500 MG (5 mL) VIAL ONE (00:54)
[2024-08-28 01:29] LABS: Acetaminophen Less than 10 mcg/mL (Less than 10); Alcohol Less than 10.0 mg/dL (Less than 10); Salicylate Less than 8.0 mg/dL (Less than 8.0)
[2024-08-28 01:40] LABS: Digoxin 1.45 ng/mL (0.8-2.0)
[2024-08-28] MEDS ORDERED: hydrALAZINE 20 MG/ML VIAL ONE ×2 (02:52→08:09)
[2024-08-28 03:42] LABS: Amphetamine Not Detected (NotDetected); Barbiturates Screen Not Detected (NotDetected); Benzodiazepine Screen Detected (NotDetected); Cocaine Metabolite Screen Not Detected (NotDetected); Methadone Not Detected (NotDetected); Methamphetamine Not Detected (NotDetected); Opiate Screen Not Detected (NotDetected); Oxycodone Screen Not Detected (NotDetected); Phencyclidine (PCP) Not Detected (NotDetected); THC/Cannabinoid Screen Not Detected (NotDetected); Tricyclic Screen Not Detected (NotDetected)
[2024-08-28] MEDS ORDERED: Calcium Carbonate 500 MG ChewTAB PO PRN (04:18)
[2024-08-28] MEDS ORDERED: Ondansetron ODT 4 MG TAB PO PRN (04:18)
[2024-08-28] MEDS ORDERED: Ondansetron PF 4 MG/2 ML Vial IVP PRN (04:18)
[2024-08-28] MEDS ORDERED: Acetaminophen 650 MG Suppository PR PRN (04:18)
[2024-08-28 05:19] VITALS: BMI 27.4
[2024-08-28 05:22] LABS: Troponin I 0.052 ng/mL (< 0.028)
[2024-08-28] MEDS ORDERED: Famotidine 20 MG TAB ONE (07:45)
[2024-08-28] MEDS: Famotidine 20 MG TAB PO SCH (07:49)
[2024-08-28] MEDS: hydrALAZINE 20 MG/ML VIAL SLOW IVP PRN (08:11)
[2024-08-28] MEDS: Famotidine/PF 20 mg/2ml Vial SLOW IVP SCH (08:50)
[2024-08-28] MEDS ORDERED: Metoprolol Tartrate 25 MG TAB ONE (08:52)
[2024-08-28] MEDS: Metoprolol Tartrate 25 MG TAB PO SCH (09:24)
[2024-08-28 09:44] LABS: Troponin I 0.052 ng/mL (< 0.028)
[2024-08-28] MEDS ORDERED: Labetalol HCl 100 MG/20 ML VIAL ONE (11:50)
[2024-08-28] MEDS ORDERED: Acetaminophen 325 MG TAB ONE (11:50)
[2024-08-28] MEDS: Labetalol HCl 100 MG/20 ML VIAL SLOW IVP PRN (12:00)
[2024-08-28] MEDS: Furosemide 40 MG TAB PO SCH (16:32)
[2024-08-28] MEDS: levETIRAcetam 500 MG (5 mL) VIAL SLOW IVP SCH (20:26)
[2024-08-28] MEDS: Atorvastatin Calcium 40 MG TAB PO SCH (20:26)
[2024-08-29 04:03] LABS: #Basophils 0.04 10x3/uL (0.0-0.2); #Eosinophils Less than 0.03 10x3/uL (0.0-0.7); %Basophils 0.6 % (0.0-1.0); %Lymphocytes 18.5 % (21.0-51.0); %Monocytes 8.4 % (0.0-10.0); %Neutrophils 71.4 % (42.0-75.0); Hematocrit 31.4 % (36.0-47.0); Hemoglobin 9.7 g/dL (12.0-16.0); Mean Corpuscular HGB CONC 30.9 g/dL (32.0-36.0); Mean Corpuscular Hemoglobin 27.9 pg (27.0-31.0); Mean Corpuscular Volume 90.2 fL (78.0-98.0); Mean Platelet Volume 9.9 fL (7.4-10.4); Platelet Count 187 10x3/uL (130-400); RBC Distribution Width 13.4 % (11.5-14.5); Red Blood Cell (RBC) Count 3.48 mill/uL (4.20-5.40)
[2024-08-29 04:50] LABS: Anion Gap 12 mmol/L (10-20); BUN (Urea Nitrogen) 47 mg/dL (9.8-20.1); Calc. Creatinine Clearance 42 mL/min (70-130); Calcium 8.9 mg/dL (7.8-10.44); Carbon Dioxide 27 mmol/L (23-31); Chloride 101 mmol/L (98-107); Estimated GFR 37; Glucose 88 mg/dL (80-115); Potassium 4.3 mmol/L (3.5-5.1); Sodium 136 mmol/L (136-145)
[2024-08-29] MEDS: Digoxin 0.125 MG TAB PO SCH (08:08)
[2024-08-29] MEDS: hydrALAZINE 25 MG TAB PO SCH (10:07)
[2024-08-29 10:50] VITALS: TEMP 98
[2024-08-29] MEDS: Acetaminophen 325 MG TAB PO PRN (10:50)
[2024-08-29 15:41] VITALS: BP 169/77
== END 2024-08-29 17:11 | disposition home or self-care (01) ==
LOC: ERS 23:28 → ERHOLD 08-28 03:57 → PCU 08-28 14:58
PROVIDERS: ADMIT Student in an Organized Health Care Education/Training Program; ATTEND Hospitalist
DX: R56.9 Unspecified convulsions (principal); E78.5 Hyperlipidemia, unspecified; M10.9 Gout, unspecified; I13.0 Hypertensive heart and chronic kidney disease with heart failure and stage 1 through stage 4 chronic kidney disease, or unspecified chronic kidney disease; I50.30 Unspecified diastolic (congestive) heart failure; N18.32 Chronic kidney disease, stage 3b; R41.82 Altered mental status, unspecified; M1A.09X0 Idiopathic chronic gout, multiple sites, without tophus (tophi); K21.9 Gastro-esophageal reflux disease without esophagitis; Z90.710 Acquired absence of both cervix and uterus; Z88.0 Allergy status to penicillin; Z88.8 Allergy status to other drugs, medicaments and biological substances; Z98.890 Other specified postprocedural states; F17.200 Nicotine dependence, unspecified, uncomplicated; Z79.82 Long term (current) use of aspirin
CPT/HCPCS: 70450; 71045; 80048; 80053; 80162; 80306; 80307; 82550; 82962; 83735; 84484 ×3; 85025 ×2; 93005; 96365; 96375 ×3; 96376 ×3; 99285; G0378 ×3; J0360; J1953 ×2; J3490; 36415; 36416

== ENCOUNTER 2025-01-03 06:29 | Inpatient (IN) | payer MEDICARE ==
[2025-01-03 07:04] LABS: #Basophils 0.04 10x3/uL (0.0-0.2); #Eosinophils Less than 0.03 10x3/uL (0.0-0.7); #Monocytes 0.37 10x3/uL (0.11-0.59); #Neutrophils 4.62 10x3/uL (1.40-6.50); %Basophils 0.6 % (0.0-1.0); %Eosinophils 0.0 % (0.0-10.0); %Lymphocytes 23.7 % (21.0-51.0); %Monocytes 5.6 % (0.0-10.0); %Neutrophils 69.6 % (42.0-75.0); Hematocrit 38.8 % (36.0-47.0); Hemoglobin 12.1 g/dL (12.0-16.0); Mean Corpuscular Hemoglobin 30.0 pg (27.0-31.0); Mean Corpuscular Volume 96.0 fL (78.0-98.0); Platelet Count 262 10x3/uL (130-400); Red Blood Cell (RBC) Count 4.04 mill/uL (4.20-5.40); White Blood Cell (WBC) Count 6.63 10x3/uL (4.8-10.8)
[2025-01-03 07:21] LABS: Actual Bicarbonate (HCO3v) 21.8 mEq/L (22-28); Base Excess -6.1 mEq/L (-2.0 to +3.0); Calcium, Ionized (venous) 1.15 mmol/L (1.16-1.32); Chloride (VBG) 106 mmol/L (98-106); Hematocrit-VBG 40 % (36.0-47.0); Hemoglobin (Hb) 13.5 g/dL (11.7-16.1); Potassium (VBG) 4.63 mmol/L (3.70-5.30); Sodium 140 mmol/L (133-146)
[2025-01-03 07:25] LABS: ALT (SGPT) Less than 7 U/L (Less than 34); AST (SGOT) 22 U/L (11-34); Albumin 2.8 g/dL (3.1-4.5); Alkaline Phosphatase 78 U/L (40-110); Anion Gap 17 mmol/L (10-20); BUN (Urea Nitrogen) 45 mg/dL (9.8-20.1); Bilirubin, Total 0.3 mg/dL (0.3-1.2); Calc. Creatinine Clearance 0 mL/min (70-130); Calcium 9.0 mg/dL (7.8-10.44); Carbon Dioxide 18 mmol/L (23-31); Chloride 108 mmol/L (98-107); Globulin 4.2 g/dL (2.4-3.5); Glucose 89 mg/dL (83-110); Potassium 4.5 mmol/L (3.5-5.1); Sodium 138 mmol/L (136-145)
[2025-01-03 07:28] LABS: Troponin I 0.018 ng/mL (< 0.028)
[2025-01-03] MEDS ORDERED: Gabapentin 300 MG CAP ONE (07:39)
[2025-01-03] MEDS ORDERED: Senokot S 8.6-50 MG TAB PO PRN (09:44)
[2025-01-03 10:06] LABS: Glucose, Urine (Dipstick) Normal (Negative); Leukocyte Negative Leu/uL (Negative); Protein, Urine (Dipstick) 200 mg/dL (Neg-Trace); Specific Gravity, Urine 1.009 (1.002-1.036)
[2025-01-03] MEDS ORDERED: hydrALAZINE 20 MG/ML VIAL ONE (10:36)
[2025-01-03 10:37] LABS: Bacteria/HPF Rare-Few HPF (None Seen); CAUTI Indications for Culture Dysuria,urgency,freq; Urine Culture Reflex No No; WBC/HPF 0-3 HPF (0-3)
[2025-01-03] MEDS ORDERED: niCARdipine 25 MG/10 ML SDV ONE ×3 (11:51→20:14)
[2025-01-03] MEDS ORDERED: niCARdipine 25 MG in Sodium Chloride 0.9% 250 ML 250 ML IVPB SCH (12:00)
[2025-01-03] MEDS ORDERED: Furosemide 40 MG (4 mL) VIAL ONE (13:24)
[2025-01-03] MEDS: Albumin 25% 25 GM (100 mL) BOT IVPB SCH ×2 (13:34→22:09)
[2025-01-03] MEDS: Furosemide 40 MG (4 mL) VIAL SLOW IVP SCH ×2 (13:34→22:09)
[2025-01-03] MEDS ORDERED: Sodium Bicarbonate Tab 325 MG TAB ONE (14:44)
[2025-01-03] MEDS: Sodium Bicarbonate Tab 325 MG TAB PO SCH (14:48)
[2025-01-03] MEDS ORDERED: niCARdipine 40MG In NaCl 40 MG/200 ML BAG IVPB SCH (20:30)
[2025-01-03] MEDS ORDERED: niCARdipine 50 MG, Admixture Fee 1 EACH in Sodium Chloride 0.9% 250 ML 230 ML IV SCH (20:30)
[2025-01-03 22:00] LABS: Sodium, Urine 97.0 mmol/L (Not Available); Urea Nitrogen, Random Urine 179.0 mg/dl
[2025-01-03] MEDS: Heparin 5,000 UNITS/ML VIAL SC SCH (22:10)
[2025-01-03 23:22] LABS: Protein, Urine Random Quant 390.0 mg/dL (1-14)
[2025-01-04 03:41] LABS: #Basophils 0.03 10x3/uL (0.0-0.2); #Eosinophils Less than 0.03 10x3/uL (0.0-0.7); #Monocytes 0.37 10x3/uL (0.11-0.59); #Neutrophils 3.54 10x3/uL (1.40-6.50); %Basophils 0.5 % (0.0-1.0); %Eosinophils 0.2 % (0.0-10.0); %Lymphocytes 27.9 % (21.0-51.0); %Monocytes 6.7 % (0.0-10.0); %Neutrophils 64.5 % (42.0-75.0); Hematocrit 31.6 % (36.0-47.0); Hemoglobin 9.7 g/dL (12.0-16.0); Mean Corpuscular Hemoglobin 30.1 pg (27.0-31.0); Mean Corpuscular Volume 98.1 fL (78.0-98.0); Platelet Count 199 10x3/uL (130-400); Red Blood Cell (RBC) Count 3.22 mill/uL (4.20-5.40); White Blood Cell (WBC) Count 5.49 10x3/uL (4.8-10.8)
[2025-01-04 04:07] LABS: Anion Gap 13 mmol/L (10-20); BUN (Urea Nitrogen) 49 mg/dL (9.8-20.1); Calc. Creatinine Clearance 22 mL/min (70-130); Calcium 8.1 mg/dL (7.8-10.44); Carbon Dioxide 19 mmol/L (23-31); Chloride 111 mmol/L (98-107); Glucose 86 mg/dL (83-110); Potassium 4.4 mmol/L (3.5-5.1); Sodium 139 mmol/L (136-145)
[2025-01-04] MEDS: hydrALAZINE 20 MG/ML VIAL SLOW IVP SCH (07:47)
[2025-01-04 08:07] LABS: Iron 38 ug/dL (50-170); Iron Binding Capacity, Total 138 mcg/dL (265-497)
[2025-01-04] MEDS: Metoprolol Succinate XL 50 MG ER.TAB PO SCH (08:57)
[2025-01-04] MEDS: NIFEdipine XL 60 MG ER.TAB PO SCH (08:58)
[2025-01-04] MEDS: Sodium Bicarbonate Tab 325 MG TAB PO SCH (08:59)
[2025-01-04] MEDS: Sodium Ferric Gluconate 250 MG in Sodium Chloride 0.9% 250 ML 250 ML IVPB SCH (10:35)
[2025-01-04] MEDS: Gabapentin 300 MG CAP PO SCH (10:35)
[2025-01-04] MEDS: Epoetin (ESRD) 10,000 UNITS/ML VIAL SC SCH (10:37)
[2025-01-04] MEDS: cloNIDine 0.1 MG TAB PO PRN (12:53)
[2025-01-04] MEDS: Albumin 25% 25 GM (100 mL) BOT IVPB SCH (14:52)
[2025-01-05 05:06] LABS: #Basophils 0.03 10x3/uL (0.0-0.2); #Eosinophils Less than 0.03 10x3/uL (0.0-0.7); #Monocytes 0.34 10x3/uL (0.11-0.59); #Neutrophils 2.51 10x3/uL (1.40-6.50); %Basophils 0.7 % (0.0-1.0); %Eosinophils 0.2 % (0.0-10.0); %Lymphocytes 32.3 % (21.0-51.0); %Monocytes 7.9 % (0.0-10.0); %Neutrophils 58.2 % (42.0-75.0); Hematocrit 26.6 % (36.0-47.0); Hemoglobin 8.2 g/dL (12.0-16.0); Mean Corpuscular Hemoglobin 30.4 pg (27.0-31.0); Mean Corpuscular Volume 98.5 fL (78.0-98.0); Platelet Count 178 10x3/uL (130-400); Red Blood Cell (RBC) Count 2.70 mill/uL (4.20-5.40); White Blood Cell (WBC) Count 4.31 10x3/uL (4.8-10.8)
[2025-01-05 05:38] LABS: Albumin 3.1 g/dL (3.1-4.5); Anion Gap 12 mmol/L (10-20); BUN (Urea Nitrogen) 50 mg/dL (9.8-20.1); BUN/Creatinine Ratio 16.13; Calc. Creatinine Clearance 21 mL/min (70-130); Calcium 8.3 mg/dL (7.8-10.44); Carbon Dioxide 20 mmol/L (23-31); Chloride 110 mmol/L (98-107); Glucose 87 mg/dL (83-110); Potassium 4.5 mmol/L (3.5-5.1); Sodium 137 mmol/L (136-145)
[2025-01-05] MEDS: Gabapentin 100 MG CAP PO SCH (10:32)
[2025-01-05] MEDS: Furosemide 20 MG (2 mL) VIAL SLOW IVP SCH (10:33)
[2025-01-05 14:13] LABS: Kappa Lambda Light Chain Ratio 0.95 (0.26-1.65)
[2025-01-05] MEDS: Albumin 25% 25 GM (100 mL) BOT IVPB SCH (14:15)
[2025-01-05 15:13] LABS: A/G Ratio 0.7 (0.7-1.7); Albumin 2.6 g/dL (2.9-4.4); Alpha 1 0.3 g/dL (0.0-0.4); Alpha 2 1.0 g/dL (0.4-1.0); Beta 0.9 g/dL (0.7-1.3); Gamma 1.3 g/dL (0.4-1.8); Globulin, Total 3.6 g/dL (2.2-3.9); M-Spike Not Observed g/dL (Not Observed)
[2025-01-05] MEDS: Melatonin 3 MG TAB PO PRN (21:02)
[2025-01-06 04:35] LABS: #Basophils 0.03 10x3/uL (0.0-0.2); #Eosinophils Less than 0.03 10x3/uL (0.0-0.7); #Monocytes 0.34 10x3/uL (0.11-0.59); #Neutrophils 2.72 10x3/uL (1.40-6.50); %Basophils 0.7 % (0.0-1.0); %Eosinophils 0.0 % (0.0-10.0); %Lymphocytes 29.4 % (21.0-51.0); %Monocytes 7.7 % (0.0-10.0); %Neutrophils 62.0 % (42.0-75.0); Hematocrit 27.1 % (36.0-47.0); Hemoglobin 8.4 g/dL (12.0-16.0); Mean Corpuscular Hemoglobin 30.2 pg (27.0-31.0); Mean Corpuscular Volume 97.5 fL (78.0-98.0); Platelet Count 195 10x3/uL (130-400); Red Blood Cell (RBC) Count 2.78 mill/uL (4.20-5.40); White Blood Cell (WBC) Count 4.39 10x3/uL (4.8-10.8)
[2025-01-06] MEDS: Acetaminophen/Codeine 30-300mg Tablet PO PRN ×2 (04:48→21:09)
[2025-01-06 05:13] LABS: Albumin 3.3 g/dL (3.1-4.5); Anion Gap 12 mmol/L (10-20); BUN (Urea Nitrogen) 48 mg/dL (9.8-20.1); BUN/Creatinine Ratio 15.34; Calc. Creatinine Clearance 22 mL/min (70-130); Calcium 8.3 mg/dL (7.8-10.44); Carbon Dioxide 22 mmol/L (23-31); Chloride 108 mmol/L (98-107); Glucose 82 mg/dL (83-110); Potassium 4.4 mmol/L (3.5-5.1); Sodium 138 mmol/L (136-145)
[2025-01-06 09:38] LABS: INR-International Normal Ratio 1.1; Prothrombin Time 13.8 sec (12.0-14.7)
[2025-01-06 09:39] LABS: PTT 39.7 sec (22.9-36.1)
[2025-01-06] MEDS ORDERED: Lidocaine 1% PF 5 ML VIAL ONE (10:30)
[2025-01-06] MEDS ORDERED: Sodium Bicarbonate 2.5 MEQ/5 ML SDV ONE (10:31)
[2025-01-06 14:14] LABS: Albumin, PEP 24hr Ur 56.4 % (NOT ESTAB.); Alpha-1-Globulin, PEP 24h Ur 9.4 % (NOT ESTAB.); Alpha-2-Globulin, PEP 24h Ur 8.9 % (NOT ESTAB.); Beta Globulin, PEP 24h Ur 12.2 % (NOT ESTAB.); Gamma Globulin, PEP 24h Ur 13.2 % (NOT ESTAB.); M-Spike,% PEP 24hr Ur Not Observed % (Not Observed); Protein, Urine 400.4 mg/dL (Not Estab.)
[2025-01-06] MEDS: NIFEdipine XL 60 MG ER.TAB PO SCH (21:08)
[2025-01-07 04:40] LABS: #Basophils Less than 0.03 10x3/uL (0.0-0.2); #Eosinophils Less than 0.03 10x3/uL (0.0-0.7); #Monocytes 0.40 10x3/uL (0.11-0.59); #Neutrophils 3.13 10x3/uL (1.40-6.50); %Basophils 0.4 % (0.0-1.0); %Eosinophils 0.0 % (0.0-10.0); %Lymphocytes 24.7 % (21.0-51.0); %Monocytes 8.4 % (0.0-10.0); %Neutrophils 66.1 % (42.0-75.0); Hematocrit 28.9 % (36.0-47.0); Hemoglobin 9.0 g/dL (12.0-16.0); Mean Corpuscular Hemoglobin 30.5 pg (27.0-31.0); Mean Corpuscular Volume 98.0 fL (78.0-98.0); Platelet Count 187 10x3/uL (130-400); Red Blood Cell (RBC) Count 2.95 mill/uL (4.20-5.40); White Blood Cell (WBC) Count 4.74 10x3/uL (4.8-10.8)
[2025-01-07 05:07] LABS: Albumin 3.1 g/dL (3.1-4.5); Anion Gap 14 mmol/L (10-20); BUN (Urea Nitrogen) 50 mg/dL (9.8-20.1); BUN/Creatinine Ratio 16.39; Calc. Creatinine Clearance 22 mL/min (70-130); Calcium 8.3 mg/dL (7.8-10.44); Carbon Dioxide 23 mmol/L (23-31); Chloride 105 mmol/L (98-107); Glucose 99 mg/dL (83-110); Potassium 4.6 mmol/L (3.5-5.1); Sodium 137 mmol/L (136-145)
[2025-01-07] MEDS ORDERED: Lidocaine 1% PF 5 ML VIAL ONE (08:44)
[2025-01-07] MEDS: Sertraline 100 MG TAB PO SCH (08:46)
[2025-01-07] MEDS: Albumin 25% 25 GM (100 mL) BOT IVPB SCH (11:13)
[2025-01-08 05:38] LABS: #Basophils Less than 0.03 10x3/uL (0.0-0.2); #Eosinophils Less than 0.03 10x3/uL (0.0-0.7); #Monocytes 0.43 10x3/uL (0.11-0.59); #Neutrophils 2.82 10x3/uL (1.40-6.50); %Basophils 0.5 % (0.0-1.0); %Eosinophils 0.0 % (0.0-10.0); %Lymphocytes 22.6 % (21.0-51.0); %Monocytes 10.1 % (0.0-10.0); %Neutrophils 66.3 % (42.0-75.0); Hematocrit 26.8 % (36.0-47.0); Hemoglobin 8.1 g/dL (12.0-16.0); Mean Corpuscular Hemoglobin 29.9 pg (27.0-31.0); Mean Corpuscular Volume 98.9 fL (78.0-98.0); Platelet Count 150 10x3/uL (130-400); Red Blood Cell (RBC) Count 2.71 mill/uL (4.20-5.40); White Blood Cell (WBC) Count 4.25 10x3/uL (4.8-10.8)
[2025-01-08 05:51] LABS: Anion Gap 13 mmol/L (10-20); BUN (Urea Nitrogen) 59 mg/dL (9.8-20.1); Calc. Creatinine Clearance 23 mL/min (70-130); Calcium 8.2 mg/dL (7.8-10.44); Carbon Dioxide 25 mmol/L (23-31); Chloride 106 mmol/L (98-107); Glucose 87 mg/dL (83-110); Potassium 4.8 mmol/L (3.5-5.1); Sodium 139 mmol/L (136-145)
[2025-01-08] MEDS: Albumin 25% 25 GM (100 mL) BOT IVPB SCH (14:30)
[2025-01-08] MEDS: Sodium Ferric Gluconate 250 MG in Sodium Chloride 0.9% 250 ML 250 ML IVPB SCH (14:30)
[2025-01-09 05:29] LABS: #Basophils Less than 0.03 10x3/uL (0.0-0.2); #Eosinophils Less than 0.03 10x3/uL (0.0-0.7); #Monocytes 0.46 10x3/uL (0.11-0.59); #Neutrophils 3.42 10x3/uL (1.40-6.50); %Basophils 0.4 % (0.0-1.0); %Eosinophils 0.0 % (0.0-10.0); %Lymphocytes 16.2 % (21.0-51.0); %Monocytes 9.8 % (0.0-10.0); %Neutrophils 73.2 % (42.0-75.0); Hematocrit 26.3 % (36.0-47.0); Hemoglobin 8.0 g/dL (12.0-16.0); Mean Corpuscular Hemoglobin 30.4 pg (27.0-31.0); Mean Corpuscular Volume 100.0 fL (78.0-98.0); Platelet Count 143 10x3/uL (130-400); Red Blood Cell (RBC) Count 2.63 mill/uL (4.20-5.40); White Blood Cell (WBC) Count 4.68 10x3/uL (4.8-10.8)
[2025-01-09 05:44] LABS: Anion Gap 13 mmol/L (10-20); BUN (Urea Nitrogen) 59 mg/dL (9.8-20.1); Calc. Creatinine Clearance 51 mL/min (70-130); Calcium 8.6 mg/dL (7.8-10.44); Carbon Dioxide 27 mmol/L (23-31); Chloride 102 mmol/L (98-107); Glucose 94 mg/dL (83-110); Potassium 4.7 mmol/L (3.5-5.1); Sodium 137 mmol/L (136-145)
[2025-01-09] MEDS: Albumin 25% 25 GM (100 mL) BOT IVPB SCH (18:05)
[2025-01-10] MEDS: Furosemide 40 MG (4 mL) VIAL SLOW IVP SCH (01:32)
[2025-01-10 03:25] LABS: #Basophils Less than 0.03 10x3/uL (0.0-0.2); #Eosinophils Less than 0.03 10x3/uL (0.0-0.7); #Monocytes 0.49 10x3/uL (0.11-0.59); #Neutrophils 3.43 10x3/uL (1.40-6.50); %Basophils 0.4 % (0.0-1.0); %Eosinophils 0.0 % (0.0-10.0); %Lymphocytes 13.2 % (21.0-51.0); %Monocytes 10.7 % (0.0-10.0); %Neutrophils 75.3 % (42.0-75.0); Hematocrit 29.4 % (36.0-47.0); Hemoglobin 8.9 g/dL (12.0-16.0); Mean Corpuscular Hemoglobin 30.9 pg (27.0-31.0); Mean Corpuscular Volume 102.1 fL (78.0-98.0); Platelet Count 157 10x3/uL (130-400); Red Blood Cell (RBC) Count 2.88 mill/uL (4.20-5.40); White Blood Cell (WBC) Count 4.56 10x3/uL (4.8-10.8)
[2025-01-10 03:43] LABS: Anion Gap 15 mmol/L (10-20); BUN (Urea Nitrogen) 57 mg/dL (9.8-20.1); Calc. Creatinine Clearance 19 mL/min (70-130); Carbon Dioxide 28 mmol/L (23-31); Chloride 101 mmol/L (98-107); Potassium 4.6 mmol/L (3.5-5.1); Sodium 139 mmol/L (136-145)
[2025-01-10 03:44] LABS: Calcium 9.2 mg/dL (7.8-10.44); Glucose 112 mg/dL (83-110); Magnesium 1.5 mg/dL (1.6-2.6)
[2025-01-10] MEDS ORDERED: Magnesium Sulfate 2 GM in Sodium Chloride 0.9% 250 ML 250 ML IVPB SCH (04:15)
[2025-01-10] MEDS: Magnesium 2 GM/50 ML(in water) Premix IVPB SCH (05:10)
[2025-01-10] MEDS: Magnesium Sulfate In Water 4 GM in Premix 1 BAG IVPB SCH (08:18)
[2025-01-10 11:49] LABS: Fluid, pH - Pleural Fld 7.426 (7.60 - 7.66)
[2025-01-10 12:56] LABS: Fluid, Triglycerides 10 mg/dL (Not Available); Pleural Fluid, Amylase Less than 30 U/L (Not Available); Pleural Fluid, Glucose 123 mg/dL; Pleural Fluid, LDH 64 U/L (Not Available); Pleural Fluid, Protein 1.9 g/dL
[2025-01-10 14:12] LABS: RBC Count-Automated (BF) 0 /cu.mm; WBC/Nucleated-Auto (BF) 358 /cu.mm
[2025-01-10 15:37] LABS: BF Segmented Neutrophils 23 %; Cell Count Non Hematic 24 %
[2025-01-10] MEDS: Furosemide 100 MG (10 mL) VIAL SLOW IVP SCH (16:11)
[2025-01-11 05:31] LABS: Albumin 3.2 g/dL (3.1-4.5); Anion Gap 13 mmol/L (10-20); BUN (Urea Nitrogen) 61 mg/dL (9.8-20.1); BUN/Creatinine Ratio 18.05; Calc. Creatinine Clearance 21 mL/min (70-130); Calcium 8.7 mg/dL (7.8-10.44); Carbon Dioxide 30 mmol/L (23-31); Chloride 99 mmol/L (98-107); Glucose 92 mg/dL (83-110); Magnesium 1.7 mg/dL (1.6-2.6); Potassium 4.6 mmol/L (3.5-5.1); Sodium 137 mmol/L (136-145)
[2025-01-11] MEDS ORDERED: Heparin 10,000 UNITS/ 10 ML VIAL ONE (08:48)
[2025-01-11] MEDS: Furosemide 100 MG (10 mL) VIAL SLOW IVP SCH (09:29)
[2025-01-11] MEDS: Magnesium Oxide 400 MG TAB PO SCH (09:30)
[2025-01-11] MEDS: Senokot S 8.6-50 MG TAB PO SCH ×2 (11:09→20:30)
[2025-01-11] MEDS: Magnesium 2 GM/50 ML(in water) Premix IVPB SCH (11:10)
[2025-01-11 15:47] LABS: HBSAB Concentration Less than 8.00 mIU/mL; Hep B Core Total Ab NONREACTIVE (NonReactive); Hep B Core Total Index 0.07 S/CO (0-0.79); Hep B Surf Ag NONREACTIVE S/CO (NonReactive); Hep C IgG Ab NONREACTIVE S/CO (NonReactive); Hep C Index 0.11 S/CO (0-0.79)
[2025-01-12 06:20] LABS: #Basophils Less than 0.03 10x3/uL (0.0-0.2); #Eosinophils Less than 0.03 10x3/uL (0.0-0.7); #Monocytes 0.55 10x3/uL (0.11-0.59); #Neutrophils 3.11 10x3/uL (1.40-6.50); %Basophils 0.5 % (0.0-1.0); %Eosinophils 0.0 % (0.0-10.0); %Lymphocytes 14.4 % (21.0-51.0); %Monocytes 12.7 % (0.0-10.0); %Neutrophils 71.9 % (42.0-75.0); Hematocrit 25.4 % (36.0-47.0); Hemoglobin 7.9 g/dL (12.0-16.0); Mean Corpuscular Hemoglobin 30.7 pg (27.0-31.0); Mean Corpuscular Volume 98.8 fL (78.0-98.0); Platelet Count 175 10x3/uL (130-400); Red Blood Cell (RBC) Count 2.57 mill/uL (4.20-5.40); White Blood Cell (WBC) Count 4.32 10x3/uL (4.8-10.8)
[2025-01-12 06:35] LABS: Anion Gap 18 mmol/L (10-20); BUN (Urea Nitrogen) 41 mg/dL (9.8-20.1); Calc. Creatinine Clearance 24 mL/min (70-130); Calcium 9.0 mg/dL (7.8-10.44); Carbon Dioxide 28 mmol/L (23-31); Chloride 96 mmol/L (98-107); Glucose 82 mg/dL (83-110); Potassium 4.0 mmol/L (3.5-5.1); Sodium 138 mmol/L (136-145)
[2025-01-12] MEDS ORDERED: Heparin 10,000 UNITS/ 10 ML VIAL ONE (09:02)
[2025-01-12] MEDS: Acetaminophen 325 MG TAB PO PRN (09:04)
[2025-01-13 04:47] LABS: #Basophils Less than 0.03 10x3/uL (0.0-0.2); #Eosinophils Less than 0.03 10x3/uL (0.0-0.7); #Monocytes 0.47 10x3/uL (0.11-0.59); #Neutrophils 2.14 10x3/uL (1.40-6.50); %Basophils 0.6 % (0.0-1.0); %Eosinophils 0.0 % (0.0-10.0); %Lymphocytes 23.4 % (21.0-51.0); %Monocytes 13.6 % (0.0-10.0); %Neutrophils 61.8 % (42.0-75.0); Hematocrit 25.5 % (36.0-47.0); Hemoglobin 7.8 g/dL (12.0-16.0); Mean Corpuscular Hemoglobin 30.0 pg (27.0-31.0); Mean Corpuscular Volume 98.1 fL (78.0-98.0); Platelet Count 157 10x3/uL (130-400); Red Blood Cell (RBC) Count 2.60 mill/uL (4.20-5.40); White Blood Cell (WBC) Count 3.46 10x3/uL (4.8-10.8)
[2025-01-13 05:08] LABS: Anion Gap 11 mmol/L (10-20); BUN (Urea Nitrogen) 26 mg/dL (9.8-20.1); Calc. Creatinine Clearance 27 mL/min (70-130); Calcium 8.5 mg/dL (7.8-10.44); Carbon Dioxide 30 mmol/L (23-31); Chloride 103 mmol/L (98-107); Glucose 83 mg/dL (83-110); Potassium 3.6 mmol/L (3.5-5.1); Sodium 140 mmol/L (136-145)
[2025-01-13 06:53] LABS: Troponin I 0.031 ng/mL (< 0.028)
[2025-01-13] MEDS ORDERED: Tuberculin PPD 0.1 ML SYRINGE (10 TEST VIAL) I-DERMAL SCH (08:30)
[2025-01-13] MEDS ORDERED: Heparin 10,000 UNITS/ 10 ML VIAL ONE (09:17)
[2025-01-13] MEDS: NIFEdipine XL 30 MG ER.TAB PO SCH (09:44)
[2025-01-13] MEDS: Tuberculin PPD 0.1 ML SYRINGE (10 TEST VIAL) I-DERMAL SCH (09:45)
[2025-01-13] MEDS ORDERED: Albumin 25% 25 GM (100 mL) BOT IVPB PRN (15:44)
[2025-01-14 04:20] LABS: #Basophils Less than 0.03 10x3/uL (0.0-0.2); #Eosinophils Less than 0.03 10x3/uL (0.0-0.7); #Monocytes 0.51 10x3/uL (0.11-0.59); #Neutrophils 2.37 10x3/uL (1.40-6.50); %Basophils 0.5 % (0.0-1.0); %Eosinophils 0.0 % (0.0-10.0); %Lymphocytes 20.7 % (21.0-51.0); %Monocytes 13.9 % (0.0-10.0); %Neutrophils 64.4 % (42.0-75.0); Hematocrit 29.1 % (36.0-47.0); Hemoglobin 8.8 g/dL (12.0-16.0); Mean Corpuscular Hemoglobin 29.7 pg (27.0-31.0); Mean Corpuscular Volume 98.3 fL (78.0-98.0); Platelet Count 173 10x3/uL (130-400); Red Blood Cell (RBC) Count 2.96 mill/uL (4.20-5.40); White Blood Cell (WBC) Count 3.68 10x3/uL (4.8-10.8)
[2025-01-14 04:49] LABS: Anion Gap 15 mmol/L (10-20); BUN (Urea Nitrogen) 17 mg/dL (9.8-20.1); Calc. Creatinine Clearance 34 mL/min (70-130); Calcium 8.7 mg/dL (7.8-10.44); Carbon Dioxide 29 mmol/L (23-31); Chloride 101 mmol/L (98-107); Glucose 87 mg/dL (83-110); Potassium 3.7 mmol/L (3.5-5.1); Sodium 141 mmol/L (136-145)
[2025-01-14] MEDS ORDERED: Heparin 10,000 UNITS/ 10 ML VIAL ONE (13:59)
[2025-01-14] MEDS: Mupirocin 1 GM TUBE NASAL DECOLONIZATION NASAL SCH (20:24)
[2025-01-15 04:05] LABS: #Basophils 0.03 10x3/uL (0.0-0.2); #Eosinophils Less than 0.03 10x3/uL (0.0-0.7); #Monocytes 0.49 10x3/uL (0.11-0.59); #Neutrophils 2.50 10x3/uL (1.40-6.50); %Basophils 0.7 % (0.0-1.0); %Eosinophils 0.0 % (0.0-10.0); %Lymphocytes 25.1 % (21.0-51.0); %Monocytes 12.0 % (0.0-10.0); %Neutrophils 61.5 % (42.0-75.0); Hematocrit 26.0 % (36.0-47.0); Hemoglobin 7.9 g/dL (12.0-16.0); Mean Corpuscular Hemoglobin 30.2 pg (27.0-31.0); Mean Corpuscular Volume 99.2 fL (78.0-98.0); Platelet Count 150 10x3/uL (130-400); Red Blood Cell (RBC) Count 2.62 mill/uL (4.20-5.40); White Blood Cell (WBC) Count 4.07 10x3/uL (4.8-10.8)
[2025-01-15 05:01] LABS: Anion Gap 11 mmol/L (10-20); BUN (Urea Nitrogen) 27 mg/dL (9.8-20.1); Calc. Creatinine Clearance 27 mL/min (70-130); Calcium 8.8 mg/dL (7.8-10.44); Carbon Dioxide 30 mmol/L (23-31); Chloride 104 mmol/L (98-107); Glucose 92 mg/dL (83-110); Potassium 3.8 mmol/L (3.5-5.1); Sodium 141 mmol/L (136-145)
[2025-01-15] MEDS: Ondansetron PF 4 MG/2 ML Vial IVP PRN (09:38)
[2025-01-15] MEDS: READ PPD TEST SITE PO SCH (12:53)
[2025-01-15] MEDS ORDERED: Heparin 10,000 UNITS/ 10 ML VIAL ONE (13:56)
[2025-01-17 03:48] LABS: #Basophils 0.03 10x3/uL (0.0-0.2); #Eosinophils Less than 0.03 10x3/uL (0.0-0.7); #Monocytes 0.45 10x3/uL (0.11-0.59); #Neutrophils 2.89 10x3/uL (1.40-6.50); %Basophils 0.7 % (0.0-1.0); %Eosinophils 0.0 % (0.0-10.0); %Lymphocytes 24.3 % (21.0-51.0); %Monocytes 10.0 % (0.0-10.0); %Neutrophils 63.9 % (42.0-75.0); Hematocrit 26.5 % (36.0-47.0); Hemoglobin 8.1 g/dL (12.0-16.0); Mean Corpuscular Hemoglobin 30.3 pg (27.0-31.0); Mean Corpuscular Volume 99.3 fL (78.0-98.0); Platelet Count 181 10x3/uL (130-400); Red Blood Cell (RBC) Count 2.67 mill/uL (4.20-5.40); White Blood Cell (WBC) Count 4.52 10x3/uL (4.8-10.8)
[2025-01-17 04:11] LABS: Anion Gap 15 mmol/L (10-20); BUN (Urea Nitrogen) 36 mg/dL (9.8-20.1); Calc. Creatinine Clearance 26 mL/min (70-130); Calcium 9.0 mg/dL (7.8-10.44); Carbon Dioxide 27 mmol/L (23-31); Chloride 99 mmol/L (98-107); Glucose 91 mg/dL (83-110); Magnesium 2.4 mg/dL (1.6-2.6); Potassium 4.0 mmol/L (3.5-5.1); Sodium 137 mmol/L (136-145)
[2025-01-17] MEDS ORDERED: Heparin 10,000 UNITS/ 10 ML VIAL ONE (10:36)
[2025-01-18 04:16] LABS: #Basophils 0.03 10x3/uL (0.0-0.2); #Eosinophils Less than 0.03 10x3/uL (0.0-0.7); #Monocytes 0.51 10x3/uL (0.11-0.59); #Neutrophils 3.32 10x3/uL (1.40-6.50); %Basophils 0.6 % (0.0-1.0); %Eosinophils 0.0 % (0.0-10.0); %Lymphocytes 20.9 % (21.0-51.0); %Monocytes 10.3 % (0.0-10.0); %Neutrophils 67.4 % (42.0-75.0); Hematocrit 26.5 % (36.0-47.0); Hemoglobin 8.0 g/dL (12.0-16.0); Mean Corpuscular Hemoglobin 29.9 pg (27.0-31.0); Mean Corpuscular Volume 98.9 fL (78.0-98.0); Platelet Count 186 10x3/uL (130-400); Red Blood Cell (RBC) Count 2.68 mill/uL (4.20-5.40); White Blood Cell (WBC) Count 4.93 10x3/uL (4.8-10.8)
[2025-01-18 04:45] LABS: Anion Gap 12 mmol/L (10-20); BUN (Urea Nitrogen) 58 mg/dL (9.8-20.1); Calc. Creatinine Clearance 23 mL/min (70-130); Calcium 8.7 mg/dL (7.8-10.44); Carbon Dioxide 28 mmol/L (23-31); Chloride 101 mmol/L (98-107); Glucose 95 mg/dL (83-110); Potassium 4.5 mmol/L (3.5-5.1); Sodium 136 mmol/L (136-145)
[2025-01-18] MEDS ORDERED: Heparin 10,000 UNITS/ 10 ML VIAL ONE ×2 (10:34→11:10)
[2025-01-18] MEDS ORDERED: Bupivacaine 0.25% HCL 30 ML VIAL ONE (11:11)
[2025-01-18 11:46] LABS: Pleural Fluid, Amylase Less than 30 U/L (Not Available); Pleural Fluid, Glucose 98 mg/dL; Pleural Fluid, LDH 77 U/L (Not Available); Pleural Fluid, Protein 2.9 g/dL
[2025-01-18] MEDS ORDERED: Lidocaine 1% PF 5 ML VIAL ONE (12:53)
[2025-01-18 14:52] LABS: RBC Count-Automated (BF) 2875 /cu.mm; WBC/Nucleated-Auto (BF) 286 /cu.mm
[2025-01-18 15:16] LABS: BF Segmented Neutrophils 22 %; Cell Count Non Hematic 35 %
[2025-01-18] MEDS: Albumin 25% 25 GM (100 mL) BOT IVPB SCH (16:38)
[2025-01-19 04:09] LABS: #Eosinophils Less than 0.03 10x3/uL (0.0-0.7); %Eosinophils 0.0 % (0.0-10.0); Hematocrit 25.6 % (36.0-47.0); Hemoglobin 7.9 g/dL (12.0-16.0); Platelet Count 175 10x3/uL (130-400)
[2025-01-19 04:34] LABS: #Basophils 0.03 10x3/uL (0.0-0.2); #Monocytes 0.63 10x3/uL (0.11-0.59); #Neutrophils 4.22 10x3/uL (1.40-6.50); %Basophils 0.5 % (0.0-1.0); %Lymphocytes 15.9 % (21.0-51.0); %Monocytes 10.8 % (0.0-10.0); %Neutrophils 71.9 % (42.0-75.0); Mean Corpuscular Hemoglobin 30.4 pg (27.0-31.0); Mean Corpuscular Volume 98.5 fL (78.0-98.0); Red Blood Cell (RBC) Count 2.60 mill/uL (4.20-5.40); White Blood Cell (WBC) Count 5.86 10x3/uL (4.8-10.8)
[2025-01-19 04:49] LABS: Anion Gap 14 mmol/L (10-20); BUN (Urea Nitrogen) 31 mg/dL (9.8-20.1); Calc. Creatinine Clearance 35 mL/min (70-130); Calcium 8.7 mg/dL (7.8-10.44); Carbon Dioxide 30 mmol/L (23-31); Chloride 97 mmol/L (98-107); Glucose 90 mg/dL (83-110); Potassium 4.2 mmol/L (3.5-5.1); Sodium 137 mmol/L (136-145)
[2025-01-20 04:34] LABS: #Basophils 0.03 10x3/uL (0.0-0.2); #Eosinophils Less than 0.03 10x3/uL (0.0-0.7); #Monocytes 0.61 10x3/uL (0.11-0.59); #Neutrophils 3.46 10x3/uL (1.40-6.50); %Basophils 0.6 % (0.0-1.0); %Eosinophils 0.0 % (0.0-10.0); %Lymphocytes 21.0 % (21.0-51.0); %Monocytes 11.6 % (0.0-10.0); %Neutrophils 66.0 % (42.0-75.0); Hematocrit 26.3 % (36.0-47.0); Hemoglobin 8.2 g/dL (12.0-16.0); Mean Corpuscular Hemoglobin 29.7 pg (27.0-31.0); Mean Corpuscular Volume 95.3 fL (78.0-98.0); Platelet Count 194 10x3/uL (130-400); Red Blood Cell (RBC) Count 2.76 mill/uL (4.20-5.40); White Blood Cell (WBC) Count 5.24 10x3/uL (4.8-10.8)
[2025-01-20 05:25] LABS: Anion Gap 15 mmol/L (10-20); BUN (Urea Nitrogen) 48 mg/dL (9.8-20.1); Calc. Creatinine Clearance 24 mL/min (70-130); Calcium 8.9 mg/dL (7.8-10.44); Carbon Dioxide 28 mmol/L (23-31); Chloride 95 mmol/L (98-107); Glucose 89 mg/dL (83-110); Potassium 4.3 mmol/L (3.5-5.1); Sodium 134 mmol/L (136-145)
[2025-01-20 08:00] VITALS: BMI 23.4
[2025-01-20] MEDS ORDERED: Heparin 10,000 UNITS/ 10 ML VIAL ONE (10:10)
[2025-01-20] MEDS ORDERED: Tuberculin PPD 0.1 ML SYRINGE (10 TEST VIAL) I-DERMAL SCH (12:00)
[2025-01-20] MEDS: Epoetin (ESRD) 10,000 UNITS/ML VIAL SC SCH (17:13)
[2025-01-21 05:40] LABS: #Basophils 0.05 10x3/uL (0.0-0.2); #Eosinophils Less than 0.03 10x3/uL (0.0-0.7); #Monocytes 0.64 10x3/uL (0.11-0.59); #Neutrophils 3.30 10x3/uL (1.40-6.50); %Basophils 0.9 % (0.0-1.0); %Eosinophils 0.0 % (0.0-10.0); %Lymphocytes 22.3 % (21.0-51.0); %Monocytes 12.1 % (0.0-10.0); %Neutrophils 62.6 % (42.0-75.0); Hematocrit 26.4 % (36.0-47.0); Hemoglobin 8.1 g/dL (12.0-16.0); Mean Corpuscular Hemoglobin 29.6 pg (27.0-31.0); Mean Corpuscular Volume 96.4 fL (78.0-98.0); Platelet Count 169 10x3/uL (130-400); Red Blood Cell (RBC) Count 2.74 mill/uL (4.20-5.40); White Blood Cell (WBC) Count 5.28 10x3/uL (4.8-10.8)
[2025-01-21 05:57] LABS: Anion Gap 9 mmol/L (10-20); BUN (Urea Nitrogen) 25 mg/dL (9.8-20.1); Calc. Creatinine Clearance 35 mL/min (70-130); Calcium 8.7 mg/dL (7.8-10.44); Carbon Dioxide 31 mmol/L (23-31); Chloride 101 mmol/L (98-107); Glucose 90 mg/dL (83-110); Potassium 4.3 mmol/L (3.5-5.1); Sodium 137 mmol/L (136-145)
[2025-01-21 07:30] LABS: Albumin 3.0 g/dL (3.1-4.5); Magnesium 2.5 mg/dL (1.6-2.6)
[2025-01-22 08:29] LABS: Albumin 3.2 g/dL (3.1-4.5); Anion Gap 12 mmol/L (10-20); BUN (Urea Nitrogen) 41 mg/dL (9.8-20.1); BUN/Creatinine Ratio 18.39; Calc. Creatinine Clearance 24 mL/min (70-130); Calcium 9.0 mg/dL (7.8-10.44); Carbon Dioxide 27 mmol/L (23-31); Chloride 101 mmol/L (98-107); Glucose 97 mg/dL (83-110); Potassium 4.4 mmol/L (3.5-5.1); Sodium 136 mmol/L (136-145)
[2025-01-22] MEDS ORDERED: Heparin 10,000 UNITS/ 10 ML VIAL ONE (10:28)
[2025-01-23 08:31] LABS: #Basophils 0.05 10x3/uL (0.0-0.2); #Eosinophils Less than 0.03 10x3/uL (0.0-0.7); #Monocytes 0.64 10x3/uL (0.11-0.59); #Neutrophils 3.33 10x3/uL (1.40-6.50); %Basophils 1.0 % (0.0-1.0); %Eosinophils 0.0 % (0.0-10.0); %Lymphocytes 19.4 % (21.0-51.0); %Monocytes 12.6 % (0.0-10.0); %Neutrophils 65.8 % (42.0-75.0); Hematocrit 28.2 % (36.0-47.0); Hemoglobin 8.8 g/dL (12.0-16.0); Mean Corpuscular Hemoglobin 29.9 pg (27.0-31.0); Mean Corpuscular Volume 95.9 fL (78.0-98.0); Platelet Count 126 10x3/uL (130-400); Red Blood Cell (RBC) Count 2.94 mill/uL (4.20-5.40); White Blood Cell (WBC) Count 5.06 10x3/uL (4.8-10.8)
[2025-01-23 08:45] LABS: Albumin 3.1 g/dL (3.1-4.5); Anion Gap 11 mmol/L (10-20); BUN (Urea Nitrogen) 22 mg/dL (9.8-20.1); BUN/Creatinine Ratio 14.01; Calc. Creatinine Clearance 33 mL/min (70-130); Calcium 8.7 mg/dL (7.8-10.44); Carbon Dioxide 28 mmol/L (23-31); Chloride 102 mmol/L (98-107); Glucose 94 mg/dL (83-110); Potassium 4.4 mmol/L (3.5-5.1); Sodium 137 mmol/L (136-145)
[2025-01-24 06:55] LABS: #Basophils 0.08 10x3/uL (0.0-0.2); #Eosinophils Less than 0.03 10x3/uL (0.0-0.7); #Monocytes 0.68 10x3/uL (0.11-0.59); #Neutrophils 3.65 10x3/uL (1.40-6.50); %Basophils 1.4 % (0.0-1.0); %Eosinophils 0.0 % (0.0-10.0); %Lymphocytes 19.2 % (21.0-51.0); %Monocytes 12.3 % (0.0-10.0); %Neutrophils 66.2 % (42.0-75.0); Hematocrit 29.7 % (36.0-47.0); Hemoglobin 9.2 g/dL (12.0-16.0); Mean Corpuscular Hemoglobin 30.1 pg (27.0-31.0); Mean Corpuscular Volume 97.1 fL (78.0-98.0); Platelet Count 151 10x3/uL (130-400); Red Blood Cell (RBC) Count 3.06 mill/uL (4.20-5.40); White Blood Cell (WBC) Count 5.52 10x3/uL (4.8-10.8)
[2025-01-24 07:06] LABS: Anion Gap 13 mmol/L (10-20); BUN (Urea Nitrogen) 35 mg/dL (9.8-20.1); Calc. Creatinine Clearance 26 mL/min (70-130); Calcium 8.8 mg/dL (7.8-10.44); Carbon Dioxide 27 mmol/L (23-31); Chloride 100 mmol/L (98-107); Glucose 91 mg/dL (83-110); Potassium 4.4 mmol/L (3.5-5.1); Sodium 136 mmol/L (136-145)
[2025-01-24 14:59] VITALS: BMI 22.1
[2025-01-25 05:13] LABS: #Basophils 0.06 10x3/uL (0.0-0.2); #Eosinophils Less than 0.03 10x3/uL (0.0-0.7); #Monocytes 0.69 10x3/uL (0.11-0.59); #Neutrophils 3.70 10x3/uL (1.40-6.50); %Basophils 1.0 % (0.0-1.0); %Eosinophils 0.0 % (0.0-10.0); %Lymphocytes 21.9 % (21.0-51.0); %Monocytes 12.0 % (0.0-10.0); %Neutrophils 64.2 % (42.0-75.0); Hematocrit 28.4 % (36.0-47.0); Hemoglobin 8.9 g/dL (12.0-16.0); Mean Corpuscular Hemoglobin 30.0 pg (27.0-31.0); Mean Corpuscular Volume 95.6 fL (78.0-98.0); Platelet Count 146 10x3/uL (130-400); Red Blood Cell (RBC) Count 2.97 mill/uL (4.20-5.40); White Blood Cell (WBC) Count 5.76 10x3/uL (4.8-10.8)
[2025-01-25 05:29] LABS: Anion Gap 13 mmol/L (10-20); BUN (Urea Nitrogen) 49 mg/dL (9.8-20.1); Calc. Creatinine Clearance 22 mL/min (70-130); Calcium 8.8 mg/dL (7.8-10.44); Carbon Dioxide 28 mmol/L (23-31); Chloride 100 mmol/L (98-107); Glucose 92 mg/dL (83-110); Magnesium 3.0 mg/dL (1.6-2.6); Potassium 4.7 mmol/L (3.5-5.1); Sodium 136 mmol/L (136-145)
[2025-01-25] MEDS ORDERED: Heparin 10,000 UNITS/ 10 ML VIAL ONE (08:44)
[2025-01-25 08:52] LABS: Actual Bicarbonate (HCO3a) 27.1 mEq/L (22-28); Base Excess (BEa) 2.2 mEq/L (-2.0 to +3.0); CO2 Tension 43.8 mmHg (35.0-45.0); Calcium, Ionized (arterial) 1.15 mmol/L (1.12-1.30); Hematocrit-ABG 29 % (36.0-47.0); Hemoglobin (Hb) 9.7 g/dL (12.0-16.0); Potassium - ABG Lab 3.78 mmol/L (3.70-5.30); pH, Arterial 7.410 (7.35-7.45)
[2025-01-25 08:55] LABS: O2 Tension (PaO2), arterial 53.1 mmHg (> 70.0)
[2025-01-25 08:56] LABS: ALV-art Gradient 605.150 mmHg (0-20); Puncture Site Right Radial artery
[2025-01-25] MEDS: EPOETIN ALFA-EPBX (ESRD) 10,000 UNITS/ML VIAL SC SCH (13:08)
[2025-01-26 13:26] LABS: #Basophils 0.05 10x3/uL (0.0-0.2); #Eosinophils Less than 0.03 10x3/uL (0.0-0.7); #Monocytes 0.69 10x3/uL (0.11-0.59); #Neutrophils 4.88 10x3/uL (1.40-6.50); %Basophils 0.7 % (0.0-1.0); %Eosinophils 0.0 % (0.0-10.0); %Lymphocytes 15.7 % (21.0-51.0); %Monocytes 10.2 % (0.0-10.0); %Neutrophils 72.4 % (42.0-75.0); Hematocrit 30.0 % (36.0-47.0); Hemoglobin 9.4 g/dL (12.0-16.0); Mean Corpuscular Hemoglobin 30.5 pg (27.0-31.0); Mean Corpuscular Volume 97.4 fL (78.0-98.0); Platelet Count 128 10x3/uL (130-400); Red Blood Cell (RBC) Count 3.08 mill/uL (4.20-5.40); White Blood Cell (WBC) Count 6.75 10x3/uL (4.8-10.8)
[2025-01-26 13:53] LABS: Anion Gap 17 mmol/L (10-20); BUN (Urea Nitrogen) 37 mg/dL (9.8-20.1); Calc. Creatinine Clearance 26 mL/min (70-130); Calcium 8.8 mg/dL (7.8-10.44); Carbon Dioxide 26 mmol/L (23-31); Chloride 97 mmol/L (98-107); Glucose 97 mg/dL (83-110); Potassium 4.6 mmol/L (3.5-5.1); Sodium 135 mmol/L (136-145)
[2025-01-26] MEDS: NIFEdipine XL 30 MG ER.TAB PO SCH (20:42)
[2025-01-26] MEDS ORDERED: NIFEdipine XL 30 MG ER.TAB PO SCH (21:00)
[2025-01-27 07:37] LABS: #Basophils 0.03 10x3/uL (0.0-0.2); #Eosinophils Less than 0.03 10x3/uL (0.0-0.7); #Monocytes 0.70 10x3/uL (0.11-0.59); #Neutrophils 6.49 10x3/uL (1.40-6.50); %Basophils 0.4 % (0.0-1.0); %Eosinophils 0.0 % (0.0-10.0); %Lymphocytes 11.8 % (21.0-51.0); %Monocytes 8.5 % (0.0-10.0); %Neutrophils 78.8 % (42.0-75.0); Hematocrit 26.3 % (36.0-47.0); Hemoglobin 8.4 g/dL (12.0-16.0); Mean Corpuscular Hemoglobin 30.0 pg (27.0-31.0); Mean Corpuscular Volume 93.9 fL (78.0-98.0); Platelet Count 135 10x3/uL (130-400); Red Blood Cell (RBC) Count 2.80 mill/uL (4.20-5.40); White Blood Cell (WBC) Count 8.23 10x3/uL (4.8-10.8)
[2025-01-27 07:51] LABS: Albumin 2.9 g/dL (3.1-4.5); Anion Gap 12 mmol/L (10-20); BUN (Urea Nitrogen) 54 mg/dL (9.8-20.1); BUN/Creatinine Ratio 24.22; Calc. Creatinine Clearance 24 mL/min (70-130); Calcium 8.6 mg/dL (7.8-10.44); Carbon Dioxide 26 mmol/L (23-31); Chloride 99 mmol/L (98-107); Glucose 118 mg/dL (83-110); Potassium 4.7 mmol/L (3.5-5.1); Sodium 132 mmol/L (136-145)
[2025-01-27] MEDS ORDERED: Heparin 10,000 UNITS/ 10 ML VIAL ONE (08:45)
[2025-01-27] MEDS: ALPRAZolam 0.25 MG TAB PO PRN (17:14)
[2025-01-27] MEDS: Metoprolol Succinate XL 50 MG ER.TAB PO SCH (20:41)
[2025-01-28 04:27] LABS: #Basophils 0.04 10x3/uL (0.0-0.2); #Eosinophils Less than 0.03 10x3/uL (0.0-0.7); #Monocytes 0.93 10x3/uL (0.11-0.59); #Neutrophils 4.53 10x3/uL (1.40-6.50); %Basophils 0.6 % (0.0-1.0); %Eosinophils 0.0 % (0.0-10.0); %Lymphocytes 17.3 % (21.0-51.0); %Monocytes 13.8 % (0.0-10.0); %Neutrophils 67.4 % (42.0-75.0); Hematocrit 26.3 % (36.0-47.0); Hemoglobin 8.0 g/dL (12.0-16.0); Mean Corpuscular Hemoglobin 29.7 pg (27.0-31.0); Mean Corpuscular Volume 97.8 fL (78.0-98.0); Platelet Count 118 10x3/uL (130-400); Red Blood Cell (RBC) Count 2.69 mill/uL (4.20-5.40); White Blood Cell (WBC) Count 6.72 10x3/uL (4.8-10.8)
[2025-01-28 04:58] LABS: Anisocytosis SLIGHT = 6-15 cells HPF (0-5); Macrocytosis SLIGHT = 6-15 cells HPF (0-5); Ovalocytes SLIGHT = 2-5 cells HPF (0-1); Platelet Adequacy Comment Platelets Decreased; Polychromasia SLIGHT = 2-3 cells HPF (0-2)
[2025-01-28] MEDS ORDERED: NIFEdipine XL 30 MG ER.TAB PO SCH (09:00)
[2025-01-28] MEDS ORDERED: Metoprolol Succinate XL 50 MG ER.TAB PO SCH (09:00)
[2025-01-29 06:42] LABS: #Basophils 0.03 10x3/uL (0.0-0.2); #Eosinophils Less than 0.03 10x3/uL (0.0-0.7); #Monocytes 0.90 10x3/uL (0.11-0.59); #Neutrophils 6.96 10x3/uL (1.40-6.50); %Basophils 0.3 % (0.0-1.0); %Eosinophils 0.0 % (0.0-10.0); %Lymphocytes 10.1 % (21.0-51.0); %Monocytes 10.2 % (0.0-10.0); %Neutrophils 78.7 % (42.0-75.0); Hematocrit 26.3 % (36.0-47.0); Hemoglobin 8.2 g/dL (12.0-16.0); Mean Corpuscular Hemoglobin 30.4 pg (27.0-31.0); Mean Corpuscular Volume 97.4 fL (78.0-98.0); Platelet Count 152 10x3/uL (130-400); Red Blood Cell (RBC) Count 2.70 mill/uL (4.20-5.40); White Blood Cell (WBC) Count 8.84 10x3/uL (4.8-10.8)
[2025-01-29 07:18] LABS: Anion Gap 13 mmol/L (10-20); BUN (Urea Nitrogen) 53 mg/dL (9.8-20.1); Calc. Creatinine Clearance 25 mL/min (70-130); Calcium 9.0 mg/dL (7.8-10.44); Carbon Dioxide 27 mmol/L (23-31); Chloride 95 mmol/L (98-107); Glucose 97 mg/dL (83-110); Potassium 5.0 mmol/L (3.5-5.1); Sodium 130 mmol/L (136-145)
[2025-01-29] MEDS ORDERED: Heparin 10,000 UNITS/ 10 ML VIAL ONE (10:21)
[2025-01-30 06:40] LABS: #Basophils 0.04 10x3/uL (0.0-0.2); #Eosinophils Less than 0.03 10x3/uL (0.0-0.7); #Monocytes 0.88 10x3/uL (0.11-0.59); #Neutrophils 4.79 10x3/uL (1.40-6.50); %Basophils 0.6 % (0.0-1.0); %Eosinophils 0.1 % (0.0-10.0); %Lymphocytes 15.5 % (21.0-51.0); %Monocytes 12.9 % (0.0-10.0); %Neutrophils 70.2 % (42.0-75.0); Hematocrit 25.8 % (36.0-47.0); Hemoglobin 8.0 g/dL (12.0-16.0); Mean Corpuscular Hemoglobin 29.7 pg (27.0-31.0); Mean Corpuscular Volume 95.9 fL (78.0-98.0); Platelet Count 191 10x3/uL (130-400); Red Blood Cell (RBC) Count 2.69 mill/uL (4.20-5.40); White Blood Cell (WBC) Count 6.83 10x3/uL (4.8-10.8)
[2025-01-31 07:26] LABS: #Basophils 0.03 10x3/uL (0.0-0.2); #Eosinophils 0.13 10x3/uL (0.0-0.7); #Monocytes 0.64 10x3/uL (0.11-0.59); #Neutrophils 4.11 10x3/uL (1.40-6.50); %Basophils 0.5 % (0.0-1.0); %Eosinophils 2.2 % (0.0-10.0); %Lymphocytes 16.4 % (21.0-51.0); %Monocytes 10.8 % (0.0-10.0); %Neutrophils 69.3 % (42.0-75.0); Hematocrit 26.3 % (36.0-47.0); Hemoglobin 8.1 g/dL (12.0-16.0); Mean Corpuscular Hemoglobin 29.3 pg (27.0-31.0); Mean Corpuscular Volume 95.3 fL (78.0-98.0); Platelet Count 236 10x3/uL (130-400); Red Blood Cell (RBC) Count 2.76 mill/uL (4.20-5.40); White Blood Cell (WBC) Count 5.93 10x3/uL (4.8-10.8)
[2025-01-31 07:45] LABS: Anion Gap 11 mmol/L (10-20); BUN (Urea Nitrogen) 45 mg/dL (9.8-20.1); Calc. Creatinine Clearance 24 mL/min (70-130); Calcium 8.8 mg/dL (7.8-10.44); Carbon Dioxide 27 mmol/L (23-31); Chloride 99 mmol/L (98-107); Glucose 127 mg/dL (83-110); Potassium 4.4 mmol/L (3.5-5.1); Sodium 133 mmol/L (136-145)
[2025-02-01 06:06] LABS: Albumin 2.6 g/dL (3.1-4.5); Anion Gap 13 mmol/L (10-20); BUN (Urea Nitrogen) 54 mg/dL (9.8-20.1); BUN/Creatinine Ratio 22.31; Calc. Creatinine Clearance 22 mL/min (70-130); Calcium 8.9 mg/dL (7.8-10.44); Carbon Dioxide 26 mmol/L (23-31); Chloride 98 mmol/L (98-107); Glucose 87 mg/dL (83-110); Potassium 5.0 mmol/L (3.5-5.1); Sodium 132 mmol/L (136-145)
[2025-02-01] MEDS ORDERED: Heparin 10,000 UNITS/ 10 ML VIAL ONE (09:33)
[2025-02-02 12:28] VITALS: BP 145/78; TEMP 98.3
== END 2025-02-02 16:20 | DRG 673 ==
LOC: ERS 06:29 → ERHOLD 12:23 → CCU 20:46 → 2NO 01-05 02:42 → T4-A 01-08 13:18 → CCU 01-10 11:05 → IMCU/EMU 01-12 21:27 → T4-B 01-28 16:27
PROVIDERS: ADMIT Family Medicine; ATTEND Family Medicine
PROC: 02HV33Z Insertion of Infusion Device into Superior Vena Cava, Percutaneous Approach (ICD-10-PCS; 2025-01-11)
PROC: B5181ZA Fluoroscopy of Superior Vena Cava using Low Osmolar Contrast, Guidance (ICD-10-PCS; 2025-01-11)
PROC: 0JH60XZ Insertion of Tunneled Vascular Access Device into Chest Subcutaneous Tissue and Fascia, Open Approach (ICD-10-PCS; principal; 2025-01-18)
PROC: 02HV33Z Insertion of Infusion Device into Superior Vena Cava, Percutaneous Approach (ICD-10-PCS; 2025-01-18)
PROC: B5181ZA Fluoroscopy of Superior Vena Cava using Low Osmolar Contrast, Guidance (ICD-10-PCS; 2025-01-18)
PROC: 5A1D70Z Performance of Urinary Filtration, Intermittent, Less than 6 Hours Per Day (ICD-10-PCS; 2025-01-18)
DX: N17.9 Acute kidney failure, unspecified (principal); I50.33 Acute on chronic diastolic (congestive) heart failure; I13.0 Hypertensive heart and chronic kidney disease with heart failure and stage 1 through stage 4 chronic kidney disease, or unspecified chronic kidney disease; J90 Pleural effusion, not elsewhere classified; E78.5 Hyperlipidemia, unspecified; N18.9 Chronic kidney disease, unspecified; K21.9 Gastro-esophageal reflux disease without esophagitis; I44.30 Unspecified atrioventricular block; Z88.0 Allergy status to penicillin; Z88.8 Allergy status to other drugs, medicaments and biological substances; Z90.710 Acquired absence of both cervix and uterus; Z98.890 Other specified postprocedural states; I16.0 Hypertensive urgency
CPT/HCPCS: 36415; 36416; 36600; 50200; 71045; 74176; 77002; 77012; 80048; 80053; 80069; 82040; 82150; 82570; 82728; 82805; 82945; 83540; 83550; 83605; 83615; 83735; 83880; 83883; 83986; 84100; 84145; 84155; 84156; 84157; 84165; 84166; 84300; 84478; 84484; 84540; 85025; 85060; 85610; 85730; 86580; 86704; 86706; 86803; 87070; 87102; 87116; 87205; 87206; 87340; 88112; 88305; 88313; 88329; 88346; 88348; 88350; 89051; 90935; 93005; 93010; 93306; 94660; 96374; 96375; 96376; 99292; C1752; G0257; J0171; J0360; J0665; J1642; J1644; J1940; J2250; J2272; J2405; J2704; J2916; J3010; J3475; J3490; J7050; J7620; P9047; Q0162; Q4081; Q5105

== ENCOUNTER 2025-03-31 13:48 | Emergency (ER) | payer MEDICARE | END 2025-03-31 15:23 | disposition home or self-care (01) | LOC: ERS 13:48 | DX: R09.02 Hypoxemia (principal); I12.0 Hypertensive chronic kidney disease with stage 5 chronic kidney disease or end stage renal disease; N18.6 End stage renal disease; J44.9 Chronic obstructive pulmonary disease, unspecified; Z99.2 Dependence on renal dialysis | CPT/HCPCS: 71045; 93005 ==

== ENCOUNTER 2025-05-28 06:22 | Emergency (ER) | payer MEDICARE ==
[2025-05-28 07:07] LABS: #Basophils 0.04 10x3/uL (0.0-0.2); #Eosinophils Less than 0.03 10x3/uL (0.0-0.7); #Monocytes 0.48 10x3/uL (0.11-0.59); #Neutrophils 12.54 10x3/uL (1.40-6.50); %Basophils 0.3 % (0.0-1.0); %Eosinophils 0.0 % (0.0-10.0); %Lymphocytes 6.9 % (21.0-51.0); %Monocytes 3.4 % (0.0-10.0); %Neutrophils 88.8 % (42.0-75.0); Hematocrit 27.2 % (36.0-47.0); Hemoglobin 7.9 g/dL (12.0-16.0); Mean Corpuscular Hemoglobin 28.7 pg (27.0-31.0); Mean Corpuscular Volume 98.9 fL (78.0-98.0); Platelet Count 329 10x3/uL (130-400); Red Blood Cell (RBC) Count 2.75 mill/uL (4.20-5.40); White Blood Cell (WBC) Count 14.12 10x3/uL (4.8-10.8)
[2025-05-28 07:45] LABS: ALT (SGPT) 9 U/L (Less than 34); AST (SGOT) 24 U/L (11-34); Albumin 2.8 g/dL (3.1-4.5); Alkaline Phosphatase 66 U/L (40-110); Anion Gap 13 mmol/L (10-20); BUN (Urea Nitrogen) 39 mg/dL (9.8-20.1); Bilirubin, Total 0.4 mg/dL (0.3-1.2); Calc. Creatinine Clearance 0 mL/min (70-130); Calcium 9.4 mg/dL (7.8-10.44); Carbon Dioxide 23 mmol/L (23-31); Chloride 99 mmol/L (98-107); Globulin 4.0 g/dL (2.4-3.5); Glucose 90 mg/dL (83-110); Lipase 25 U/L (8-78); Potassium 4.9 mmol/L (3.5-5.1); Sodium 130 mmol/L (136-145)
[2025-05-28] MEDS ORDERED: Mag-Al 1200 mg/1200 mg/30 ML UDCUP ONE (07:49)
[2025-05-28] MEDS ORDERED: Lidocaine Viscous Sol 2% 15 ml UD Cup ONE (07:50)
== END 2025-05-28 09:24 ==
LOC: ERS 06:22
DX: K21.00 Gastro-esophageal reflux disease with esophagitis, without bleeding (principal); J44.9 Chronic obstructive pulmonary disease, unspecified; I12.0 Hypertensive chronic kidney disease with stage 5 chronic kidney disease or end stage renal disease; N18.6 End stage renal disease; I48.91 Unspecified atrial fibrillation; E78.5 Hyperlipidemia, unspecified; Z99.2 Dependence on renal dialysis; Z79.899 Other long term (current) drug therapy
CPT/HCPCS: 36415; 71045; 80053; 83690; 84484; 85025; 93005; 94760